=== PATIENT | female | born 1970 | race Caucasian/White ===

== ENCOUNTER 2019-07-24 08:43 | Inpatient (IN) | payer SELFPAY ==
[~2019-07-24] VITALS: Ht 162.3 cm; Wt 125.0 kg
[2019-07-24] VITALS (11 sets, daily range): BP systolic 114–139; BP diastolic 62–81
[~2019-07-24 08:43] MED LIST: ACHD5005 PO; CYCL10TA9 PO; NAPR-243 PO
[2019-07-24] MEDS ORDERED: NS IV 1000 ML 1,000 ML IV SCH ×2 (08:47→09:03)
--- NOTE | 2019-07-24 08:54 | ED Neurological Problem ---
General Stated Complaint: AMS Source: patient Exam Limitations: no limitations History of Present Illness Date Seen by Provider: Jul 24, 2019 Time Seen by Provider: 08:35 Initial Comments Patient presents ER by EMS from home with chief complaint that last night she was acting oddly according to her . She is diabetic but does not allow him to check blood sugar. She went to bed and this morning woke up around 6:00 and was still talking out of her head taking her clothes off running around. Patient's unable to answer any questions with meaningful answers. 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 No history of suicidal ideation or delivers self-harm. The patient does take Paxil. Blood sugar was over 300. No other medical history. The is on his way with her medications. Allergies and Home Medications Allergies Coded Allergies: No Known Drug Allergies (Unverified , 06/29/11) Home Medications Atorvastatin Calcium 20 Mg Tablet, 20 MG PO HS, (Reported) Calcium Carb/D3/Magnesium/Zinc 1 Each Tablet, 1 EACH PO DAILY, (Reported) Dulaglutide 0.75 Mg/0.5 Ml Pen.injctr, 0.75 MG SQ WEEK, (Reported) Glipizide 10 Mg Tablet, 10 MG PO DAILY, (Reported) Insulin Aspart 100 Unit/1 Ml Susp, 0 SQ AC, (Reported) Insulin Determir 1,000 Units/10 Ml Soln, 0 SQ HS, (Reported) Lisinopril 10 Mg Tablet, 10 MG PO DAILY, (Reported) Metformin HCl 500 Mg [id number], 1,000 MG PO BID, (Reported) Multivitamin 1 Each Tablet, 1 EACH PO DAILY, (Reported) Paroxetine HCl 40 Mg Tablet, 40 MG PO DAILY, (Reported) Potassium Gluconate 99 Mg Tablet, 99 MG PO DAILY, (Reported) Patient Home Medication List Home Medication List Reviewed: Yes Review of Systems Review of Systems Constitutional: see HPI (unable to obtain a meaningful review of systems secondary to patient's delirium) Past Hgkwuvm-Arlbys-Lftqcv Hx Patient Social History Alcohol Use: Denies Use Recreational Drug Use: No Smoking Status: Never a Smoker Recent Foreign Travel: No Contact w/Someone Who Travel: No Physical Exam Vital Signs Vital Signs - First Documented 07/24/19 08:43 Temp 36.8 Pulse 99 Resp 20 B/P (MAP) 151/89 (109) Pulse Ox 98 O2 Delivery Room Air Capillary Refill : Height, Weight, BMI Height: '" Weight: lbs. oz. kg; BMI Method: General Appearance: mild distress, obese HEENT: PERRL/EOMI, pharynx normal Neck: non-tender, full range of motion Respiratory: lungs clear, normal breath sounds, no respiratory distress, no accessory muscle use Cardiovascular: normal peripheral pulses, regular rate, rhythm, no edema Peripheral Pulses: 2+ Radial Pulses (R), 2+ Radial Pulses (L) Gastrointestinal: normal bowel sounds, non tender, soft Neurologic/Psychiatric: alert; No oriented x 3 (nonpressured, delirious speech); other (patellar, tricep and brachioradialis hyperclonus without tonic. Reflexes bilateral symmetric 3/4 upper and lower extremities.) Progress/Results/Core Measures Results/Orders Lab Results Laboratory Tests Test 07/24/19 08:54 07/24/19 09:08 Range/Units Urine Color YELLOW Urine Clarity CLEAR Urine pH 6 5-9 Urine Specific Willet 1.020 1.016-1.022 Urine Protein 2+ H NEGATIVE Urine Glucose (UA) 3+ H NEGATIVE Urine Ketones 2+ H NEGATIVE Urine Nitrite NEGATIVE NEGATIVE Urine Bilirubin NEGATIVE NEGATIVE Urine Urobilinogen NORMAL NORMAL MG/DL Urine Leukocyte Esterase NEGATIVE NEGATIVE Urine RBC (Auto) 2+ H NEGATIVE Urine RBC 2-5 H /HPF Urine WBC 2-5 /HPF Urine Squamous Epithelial Cells RARE /HPF Urine Crystals NONE /LPF Urine Bacteria NEGATIVE /HPF Urine Casts PRESENT /LPF Urine Hyaline Casts 10-25 H /LPF Urine Mucus NEGATIVE /LPF Urine Culture Indicated NO Urine Test NEGATIVE NEGATIVE Urine Opiates Screen NEGATIVE NEGATIVE Urine Oxycodone Screen NEGATIVE NEGATIVE Urine Methadone Screen NEGATIVE NEGATIVE Urine Propoxyphene Screen NEGATIVE NEGATIVE Urine Barbiturates Screen NEGATIVE NEGATIVE Ur Tricyclic Antidepressants Screen NEGATIVE NEGATIVE Urine Phencyclidine Screen NEGATIVE NEGATIVE Urine Amphetamines Screen NEGATIVE NEGATIVE Urine Methamphetamines Screen NEGATIVE NEGATIVE Urine Benzodiazepines Screen NEGATIVE NEGATIVE Urine Cocaine Screen NEGATIVE NEGATIVE Urine Cannabinoids Screen NEGATIVE NEGATIVE White Blood Count 14.0 H 4.3-11.0 10^3/uL Red Blood Count 3.66 L 4.35-5.85 10^6/uL Hemoglobin 11.1 L 11.5-16.0 G/DL Hematocrit 33 L 35-52 % Mean Corpuscular Volume 90 80-99 FL Mean Corpuscular Hemoglobin 30 25-34 PG Mean Corpuscular Hemoglobin Concent 34 32-36 G/DL Red Cell Distribution Width 13.6 10.0-14.5 % Platelet Count 351 130-400 10^3/uL Mean Platelet Volume 9.9 7.4-10.4 FL Neutrophils (%) (Auto) 86 H 42-75 % Lymphocytes (%) (Auto) 8 L 12-44 % Monocytes (%) (Auto) 6 0-12 % Eosinophils (%) (Auto) 1 0-10 % Basophils (%) (Auto) 0 0-10 % Neutrophils # (Auto) 11.9 H 1.8-7.8 X 10^3 Lymphocytes # (Auto) 1.2 1.0-4.0 X 10^3 Monocytes # (Auto) 0.8 0.0-1.0 X 10^3 Eosinophils # (Auto) 0.1 0.0-0.3 10^3/uL Basophils # (Auto) 0.0 0.0-0.1 10^3/uL Sodium Level 134 L 135-145 MMOL/L Potassium Level 4.2 3.6-5.0 MMOL/L Chloride Level 101 98-107 MMOL/L Carbon Dioxide Level 20 L 21-32 MMOL/L Anion Gap 13 5-14 MMOL/L Blood Urea Nitrogen 44 H 7-18 MG/DL Creatinine 1.76 H 0.60-1.30 MG/DL Estimat Glomerular Filtration Rate 31 BUN/Creatinine Ratio 25 Glucose Level 260 H 70-105 MG/DL Calcium Level 9.3 8.5-10.1 MG/DL Corrected Calcium 9.1 8.5-10.1 MG/DL Magnesium Level 2.1 1.6-2.4 MG/DL Total Bilirubin 0.7 0.1-1.0 MG/DL Aspartate Amino Transf (AST/SGOT) 38 H 5-34 U/L Alanine Aminotransferase (ALT/SGPT) 31 0-55 U/L Alkaline Phosphatase 84 40-136 U/L Total Creatine Kinase 1055 H 29-168 U/L Total Protein 7.0 6.4-8.2 GM/DL Albumin 4.2 3.2-4.5 GM/DL Salicylates Level < 5.0 L 5.0-20.0 MG/DL Acetaminophen Level < 10 L 10-30 UG/ML Serum Alcohol < 10 <10 MG/DL My Orders Orders - LESA CONNER Ua Culture If Indicated (07/24/19 08:47) Cbc With Automated Diff (07/24/19 08:47) Comprehensive Metabolic Panel (07/24/19 08:47) Alcohol (07/24/19 08:47) Drug Screen Stat (Urine) (07/24/19 08:47) Acetaminophen (07/24/19 08:47) Salicylate (07/24/19 08:47) Ekg Tracing (07/24/19 08:47) Hcg,Qualitative Urine (07/24/19 08:47) Ed Iv/Invasive Line Start (07/24/19 08:47) Monitor-Rhythm Ecg Trace Only (07/24/19 08:47) Bh Status Checks/Observation Q15M (07/24/19 08:47) Ed Iv/Invasive Line Start (07/24/19 08:47) Ns Iv 1000 Ml (Sodium Chloride 0.9%) (07/24/19 08:47) Catheter(Urinary) Insert & Ass 03,15 (07/24/19 08:47) Lorazepam Injection (Ativan Injection) (07/24/19 09:00) Diphenhydramine Injection (Benadryl Inje (07/24/19 09:00) Lorazepam Injection (Ativan Injection) (07/24/19 09:00) Ct Head Wo (07/24/19 08:57) Magnesium 1 Gm/100 Ml Ivpb (Magnesium Briscoe (07/24/19 09:15) Creatine Kinase (07/24/19 09:03) Ed Iv/Invasive Line Start (07/24/19 09:03) Ns Iv 1000 Ml (Sodium Chloride 0.9%) (07/24/19 09:03) Magnesium (07/24/19 09:06) Medications Given in ED Current Medications Medications Dose Ordered Sig/Rina Route Start Time Stop Time Status Last Admin Dose Admin Diphenhydramine HCl 25 mg ONCE ONCE IVP 07/24/19 09:00 07/24/19 09:01 DC 07/24/19 09:02 25 MG Lorazepam 2 mg ONCE ONCE IVP 07/24/19 09:00 07/24/19 09:01 DC 07/24/19 08:55 2 MG Magnesium Sulfate/ Dextrose 100 ml @ 100 mls/hr ONCE ONCE IV 07/24/19 09:15 07/24/19 10:14 DC 07/24/19 09:12 100 MLS/HR Vital Signs/I&O 07/24/19 08:43 Temp 36.8 Pulse 99 Resp 20 B/P (MAP) 151/89 (109) Pulse Ox 98 O2 Delivery Room Air Progress Progress Note #1: Time: 08:53 Progress Note Poison Control: Discussed the case and he said it is possible that she is in serotonergic syndrome. They would recommend aggressive IV fluids so we'll increase it to 2 L. They would recommend benzos. If she becomes hypotensive use norepinephrine. Keep your normothermic. We discussed cyproheptadine and well hold that and observe at this time. They suggests serial CPK. EKG demonstrated mildly prolonged QTC at 503 ms so with a gram of magnesium will be okay and to check electrolytes. We'll start with a liter fluids, EKG, labs, urine, Nguyen catheter, 2 mg of Ativan and 25 mg IV Benadryl for her histaminergic appearance. Progress Note #2: Time: 11:26 Progress Note Poison control called back earlier and spoke to nursing. Their athletic gear custodian agreed that serotonergic syndrome seemed likely. They recommended Ativan 2 mg every 15 minutes IV until we got her calm down. Follow the CPK and IV fluids. Watch for hyperthermia and use Cyproheptadine if necessary. Patient is mentating a little better and able to answer questions. She is oriented that she's in a hospital room but does not know the name of the Pres., day of the week or what happened. Presently she denies suicidal ideation. Diagnostic Imaging Diagonstic Imaging: Xray Plain Films/CT/US/NM/MRI: chest (1v) Reviewed: Reviewed by Me Diagonstic Imaging: CT (without IV contrast) Plain Films/CT/US/NM/MRI: head Comments [facility]. [place], [place] NAME: ADONAY RAY MED REC#: [id number] PT STATUS: REG ER : 1970 PHYSICIAN: LESA CONNER MD ADMIT DATE: 07/24/19/ER Draft Date of Exam:07/24/19 CT HEAD WO PROCEDURE: CT head without contrast. TECHNIQUE: Multiple contiguous axial images were obtained through the brain without the use of intravenous contrast. Auto Exposure Controls were utilized during the CT exam to meet ALARA standards for radiation dose reduction. INDICATION: Altered mental status. No prior studies are available for comparison. The ventricles and sulci are within normal limits. No sulcal effacement or midline shift is detected. No acute intra-axial or extra-axial hemorrhage is seen. Cisterns are patent. Visualized paranasal sinuses are clear. IMPRESSION: No acute intracranial process is detected. Dictated on workstation # [id number] Dict: 07/24/1939 Trans: 07/24/19 0941 [facility] [id number] Interpreted by: BRANDON BERGER MD Electronically signed by: Reviewed: Reviewed by Me Departure Communication (Admissions) Time/Spoke to Admitting Phy: 11:20 Discussed case lab imaging findings with Dr. Amezcua and she agrees with admission to the ICU, fluids and Ativan as necessary. Impression Primary Impression: Serotonergic syndrome Additional Impressions: Acute kidney injury Rhabdomyolysis Qualified Codes: M62.82 - Rhabdomyolysis Delirium due to another medical condition, acute, hyperactive Disposition: ADMITTED INPATIENT Condition: Critical Admissions Decision to Admit Reason: Admit from ER (General) Decision to Admit/Date: Jul 24, 2019 Time/Decision to Admit Time: 10:30 Departure-Patient Inst. Referrals: JARROD DÍAZ MD (PCP/Family) Primary Care Physician LESA CONNER Jul 24, 2019 08:54
[2019-07-24 09:00] LABS: BILIRUBIN,URINE NEGATIVE (NEGATIVE); CLARITY,URINE CLEAR; COLOR,URINE YELLOW; GLUCOSE, URINE (UA) 3+ (NEGATIVE); KETONES,URINE 2+ (NEGATIVE); LEUKOCYTE ESTERASE ,URINE NEGATIVE (NEGATIVE); NITRITE,URINE NEGATIVE (NEGATIVE); PH,URINE 6 (5-9); PROTEIN,URINE 2+ (NEGATIVE); UROBILINOGEN,URINE NORMAL (NORMAL)
[2019-07-24] MEDS ORDERED: LORazepam INJ 2 MG/ML (ATIVAN) VIAL IVP ONE ×2 (09:00)
[2019-07-24] MEDS ORDERED: diphenhydrAMINE 50 MG/ML INJ (BENADRYL) IVP ONE (09:00)
[2019-07-24 09:07] LABS: BACTERIA,URINE NEGATIVE /HPF; HCG,QUALITATIVE URINE NEGATIVE (NEGATIVE); SQUAMOUS EPITHELIAL CELL,UR RARE /HPF
[2019-07-24 09:11] LABS: AMPHETAMINE SCREEN, URINE NEGATIVE (NEGATIVE); BARBITURATE SCREEN URINE NEGATIVE (NEGATIVE); BENZODIAZEPINES SCREEN URINE NEGATIVE (NEGATIVE); CANNABINOID SCREEN, URINE NEGATIVE (NEGATIVE); COCAINE SCREEN URINE NEGATIVE (NEGATIVE); METHADONE STAT NEGATIVE (NEGATIVE); METHAMPHETAMINE SCREEN URINE S NEGATIVE (NEGATIVE); OPIATE SCREEN URINE NEGATIVE (NEGATIVE); OXYCODONE STAT NEGATIVE (NEGATIVE); PROPOXYPHENE STAT NEGATIVE (NEGATIVE); TRICYCLIC ANTIDEPRESSANTS SCRE NEGATIVE (NEGATIVE)
[2019-07-24] MEDS ORDERED: MAGNESIUM 1 GM/100 ML IVPB 100 ML IV ONE (09:15)
[2019-07-24 09:18] LABS: BASOPHILS % (AUTO) 0 % (0-10); EOSINOPHILS # (AUTO) 0.1 10^3/uL (0.0-0.3); EOSINOPHILS % (AUTO) 1 % (0-10); HEMATOCRIT 33 % (35-52); HEMOGLOBIN 11.1 G/DL (11.5-16.0); LYMPHOCYTES # (AUTO) 1.2 X 10^3 (1.0-4.0); LYMPHOCYTES % (AUTO) 8 % (12-44); MEAN CORPUSCULAR HEMOGLOBIN 30 PG (25-34); MEAN CORPUSCULAR HGB CONC 34 G/DL (32-36); MEAN CORPUSCULAR VOLUME 90 FL (80-99); MEAN PLATELET VOLUME 9.9 FL (7.4-10.4); MONOCYTES # (AUTO) 0.8 X 10^3 (0.0-1.0); MONOCYTES % (AUTO) 6 % (0-12); NEUTROPHILS # (AUTO) 11.9 X 10^3 (1.8-7.8); NEUTROPHILS % (AUTO) 86 % (42-75); PLATELET COUNT 351 10^3/uL (130-400); RED CELL DISTRIBUTION WIDTH 13.6 % (10.0-14.5)
[2019-07-24] MEDS ORDERED: CA C1TAB70 PO (09:40)
[2019-07-24] MEDS ORDERED: DULA0.75 SQ (09:40)
[2019-07-24] MEDS ORDERED: INSU100V16 SQ (09:40)
[2019-07-24] MEDS ORDERED: MULT-974 PO (09:40)
[2019-07-24] MEDS ORDERED: [UNRECOGNIZED DRUG - CODE] PO (09:40)
[2019-07-24] MEDS ORDERED: INSU100V5 SQ (09:40)
[2019-07-24] MEDS ORDERED: ATOR20TA66 PO (09:40)
[2019-07-24] MEDS ORDERED: POTA99TA17 PO (09:40)
[2019-07-24] MEDS ORDERED: PARO40TA3 PO (09:40)
[2019-07-24] MEDS ORDERED: LISI10TA2 PO (09:40)
[2019-07-24] MEDS ORDERED: METF-760 PO (09:40)
[2019-07-24] MEDS ORDERED: GLIP10TA13 PO (09:40)
--- NOTE | 2019-07-24 09:41 | Diagnostic Imaging Report ---
PROCEDURE: CT head without contrast. TECHNIQUE: Multiple contiguous axial images were obtained through the brain without the use of intravenous contrast. Auto Exposure Controls were utilized during the CT exam to meet ALARA standards for radiation dose reduction. INDICATION: Altered mental status. No prior studies are available for comparison. The ventricles and sulci are within normal limits. No sulcal effacement or midline shift is detected. No acute intra-axial or extra-axial hemorrhage is seen. Cisterns are patent. Visualized paranasal sinuses are clear. IMPRESSION: No acute intracranial process is detected. Dictated by: Dictated on workstation # [id number]
[2019-07-24 09:43] LABS: ALANINE AMINOTRANSFERASE 31 U/L (0-55); ALBUMIN 4.2 GM/DL (3.2-4.5); ALKALINE PHOSPHATASE 84 U/L (40-136); BILIRUBIN,TOTAL 0.7 MG/DL (0.1-1.0); BUN/CREATININE RATIO 25; CALCIUM 9.3 MG/DL (8.5-10.1); CARBON DIOXIDE 20 MMOL/L (21-32); CHLORIDE 101 MMOL/L (98-107); CREATINE KINASE 1055 U/L (29-168); CREATININE SERUM 1.76 MG/DL (0.60-1.30); GFR ESTIMATED 31; GLUCOSE 260 MG/DL (70-105); MAGNESIUM 2.1 MG/DL (1.6-2.4); POTASSIUM 4.2 MMOL/L (3.6-5.0); SALICYLATE < 5.0 MG/DL (5.0-20.0); SODIUM 134 MMOL/L (135-145)
[2019-07-24 10:01] LABS: ACETAMINOPHEN < 10 UG/ML (10-30)
[2019-07-24] MEDS ORDERED: ACETAMINOPHEN 325 MG TABLET PO PRN (12:15)
[2019-07-24] MEDS ORDERED: CATHETER FLUSH 10 ML SYR IV PRN (12:15)
[2019-07-24] MEDS ORDERED: ONDANSETRON 4 MG/2 ML (SDV) Z0FRAN IV PRN (12:15)
[2019-07-24] MEDS: NS IV 1000 ML 1,000 ML IV SCH ×3 (12:28→21:56)
[2019-07-24] MEDS: inSUlin ASPART (NovoLOG) 1 UNIT/0.01 ML (CHARGE PER UNIT) SC SCH ×2 (16:50→21:55)
[2019-07-24] MEDS: diphenhydrAMINE 50 MG/ML INJ (BENADRYL) IV PRN (23:24)
[2019-07-25] VITALS (22 sets, daily range): BP systolic 120–176; BP diastolic 63–169
[2019-07-25] MEDS: NS IV 1000 ML 1,000 ML IV SCH ×5 (02:33→23:41)
[2019-07-25 03:08] LABS: HEMOGLOBIN 10.2 G/DL (11.5-16.0); MEAN PLATELET VOLUME 9.6 FL (7.4-10.4); RED CELL DISTRIBUTION WIDTH 13.4 % (10.0-14.5); WHITE BLOOD COUNT 8.6 10^3/uL (4.3-11.0)
[2019-07-25 03:34] LABS: ALANINE AMINOTRANSFERASE 28 U/L (0-55); ALBUMIN 3.6 GM/DL (3.2-4.5); ALKALINE PHOSPHATASE 80 U/L (40-136); BILIRUBIN,TOTAL 0.4 MG/DL (0.1-1.0); BUN/CREATININE RATIO 21; CALCIUM 7.6 MG/DL (8.5-10.1); CARBON DIOXIDE 20 MMOL/L (21-32); CHLORIDE 110 MMOL/L (98-107); CREATINE KINASE 579 U/L (29-168); CREATININE SERUM 0.97 MG/DL (0.60-1.30); GFR ESTIMATED > 60; GLUCOSE 168 MG/DL (70-105); MAGNESIUM 2.3 MG/DL (1.6-2.4); PHOSPHORUS 1.9 MG/DL (2.3-4.7); POTASSIUM 3.8 MMOL/L (3.6-5.0); SODIUM 138 MMOL/L (135-145)
[2019-07-25] MEDS: POTASSIUM CL 10MEQ/50ML IVPB 50 ML IV SCH (04:25)
[2019-07-25] MEDS: MAGNESIUM 1 GM/100 ML IVPB 100 ML IV SCH (04:26)
[2019-07-25] MEDS: KCL 20 MEQ TAB (K-DUR) PO SCH (04:26)
[2019-07-25] MEDS: inSUlin ASPART (NovoLOG) 1 UNIT/0.01 ML (CHARGE PER UNIT) SC SCH ×4 (06:10→20:11)
--- NOTE | 2019-07-25 07:09 | Pulmonary Consultation ---
History of Present Illness History of Present Illness Date of Consultation 07/25/19 07:03 Date of Admission Allergies and Home Medications Allergies Coded Allergies: No Known Drug Allergies (Unverified , 06/29/11) Home Medications Atorvastatin Calcium 20 Mg Tablet, 20 MG PO HS, (Reported) Calcium Carb/D3/Magnesium/Zinc 1 Each Tablet, 1 EACH PO DAILY, (Reported) Dulaglutide 0.75 Mg/0.5 Ml Pen.injctr, 0.75 MG SQ WEEK, (Reported) Glipizide 10 Mg Tablet, 10 MG PO DAILY, (Reported) Insulin Aspart 100 Unit/1 Ml Susp, 0 SQ AC, (Reported) Insulin Determir 1,000 Units/10 Ml Soln, 0 SQ HS, (Reported) Lisinopril 10 Mg Tablet, 10 MG PO DAILY, (Reported) Metformin HCl 500 Mg [id number], 1,000 MG PO BID, (Reported) Multivitamin 1 Each Tablet, 1 EACH PO DAILY, (Reported) Paroxetine HCl 40 Mg Tablet, 40 MG PO DAILY, (Reported) Potassium Gluconate 99 Mg Tablet, 99 MG PO DAILY, (Reported) Past Iddaydz-Bihkxm-Dbqulo Hx Patient Social History Alcohol Use: Denies Use Recreational Drug Use: No Smoking Status: Never a Smoker Recent Foreign Travel: No Contact w/Someone Who Travel: No Recent Infectious Disease Expo: No Recent Hopitalizations: No Physical Abuse: No Sexual Abuse: No Mistreated: No Fear: No Immunizations Up To Date Tetanus Booster (TDap): Unknown PED Vaccines UTD: Yes Seasonal Allergies Seasonal Allergies: No Past Medical History Surgeries: Yes Respiratory: No Cardiac: No Neurological: No Genitourinary: No Gastrointestinal: No Musculoskeletal: No Endocrine: Yes HEENT: No Cancer: No Psychosocial: Yes Integumentary: No Sepsis Event Evaluation Height, Weight, BMI Height: '" Weight: lbs. oz. kg; 34.00 BMI Method: Exam Exam Vital Signs Date Time Temp Pulse Resp B/P (MAP) Pulse Ox O2 Delivery O2 Flow Rate FiO2 07/25/19 06:00 91 16 132/72 (92) 100 Room Air 07/25/19 05:00 81 19 142/84 (103) 96 Room Air 07/25/19 04:00 97 Room Air 07/25/19 04:00 85 20 133/78 (96) 96 Room Air 07/25/19 04:00 35.6 07/25/19 03:00 80 23 139/80 (99) 100 Room Air 07/25/19 02:00 138/86 (103) Room Air 07/25/19 02:00 95 17 94 Room Air 07/25/19 01:00 81 19 98 Room Air 07/25/19 01:00 84 07/25/19 00:00 97 Room Air 07/25/19 00:00 36.5 07/25/19 00:00 85 20 97 Room Air 07/24/19 23:00 88 16 121/74 (90) 98 Room Air 07/24/19 22:00 96 18 138/81 (100) 99 Room Air 07/24/19 20:00 96 Room Air 07/24/19 20:00 36.7 07/24/19 20:00 103 139/69 (92) 100 Room Air 07/24/19 19:00 94 20 135/79 (97) 98 Room Air 07/24/19 19:00 95 07/24/19 18:00 96 12 135/74 (94) 100 Room Air 07/24/19 17:00 94 22 127/70 (89) 96 Room Air 07/24/19 16:00 82 11 123/77 (92) 97 Room Air 07/24/19 16:00 98 Room Air 07/24/19 15:00 87 24 123/65 (84) 98 Room Air 07/24/19 14:00 75 22 132/75 (94) 98 Room Air 07/24/19 13:00 89 20 114/62 (79) 96 Room Air 07/24/19 13:00 89 07/24/19 12:15 80 24 126/80 (95) 97 Room Air 07/24/19 12:12 79 07/24/19 12:01 97 Room Air 07/24/19 11:55 88 24 129/76 96 Room Air 07/24/19 08:43 36.8 99 20 151/89 (109) 98 Room Air I & O 07/25/19 07:00 Intake Total 5550 ml Output Total 5800 ml Balance -250 ml Height & Weight Height: '" Weight: lbs. oz. kg; 34.00 BMI Method: Capillary Refill: Less Than 3 Seconds Peripheral Pulses: 2+ Radial Pulses (R), 2+ Radial Pulses (L) Gastrointestinal: normal bowel sounds, non tender, soft Results Lab Laboratory Tests 07/24/19 09:08 07/25/19 02:52 Assessment/Plan Assessment/Plan Dehydration ? serotonin syndrome -IVF -Monitor puritic erythematous skin rash -Start solumedrol 125mg IV X 1 then 40 IV Q 6 -Cont Benadryl -Continue to monitor Dysphagia -Check Bedside swallow eval Rhabdomyolysis -IVF Metabolic acidosis -Continue to monitor AKF- improving -IVF and monitor metabolic acidosis -Monitor ELLIS ALVARADO DO Jul 25, 2019 07:09
[2019-07-25] MEDS ORDERED: SODIUM PHOSPHATE INJ 30 MM in NS (IVPB) 250 ML IV ONE (07:30)
[2019-07-25] MEDS ORDERED: methylPREDNISolone 125 MG (Solu-MEDROL) VIAL ONE (07:59)
[2019-07-25] MEDS ORDERED: methylPREDNISolone 125 MG (Solu-MEDROL) VIAL IM NR (08:00)
--- NOTE | 2019-07-25 09:07 | Diagnostic Imaging Report ---
EXAMINATION: Chest radiograph, portable AP view. DATE: 07/25/2019 6:46 AM hours. INDICATION: 49-year-old female, altered mental status. COMPARISON: December 23, 2006. FINDINGS: Stable overall appearance of the cardiomediastinal silhouette. There is no identified pneumothorax. There is no large pleural effusion. There is no identified focal airspace consolidation. IMPRESSION: No identified acute cardiopulmonary abnormality. Dictated by: Dictated on workstation # [id number]
[2019-07-25] MEDS: LORazepam INJ 2 MG/ML (ATIVAN) VIAL IV PRN ×3 (10:33→23:06)
[2019-07-25] MEDS: methylPREDNISolone 40 MG/ML (Solu-MEDROL) VIAL IV SCH ×2 (11:48→16:20)
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
[2019-07-25] MEDS: diphenhydrAMINE 50 MG/ML INJ (BENADRYL) IV PRN ×2 (17:42→23:06)
[2019-07-25] MEDS ORDERED: inSUlin ASPART (NovoLOG) 1 UNIT/0.01 ML (CHARGE PER UNIT) ONE (20:07)
[2019-07-26] VITALS (11 sets, daily range): BP systolic 136–167; BP diastolic 69–97
[2019-07-26] MEDS: NS IV 1000 ML 1,000 ML IV SCH ×4 (00:51→19:15)
[2019-07-26] MEDS: inSUlin ASPART (NovoLOG) 1 UNIT/0.01 ML (CHARGE PER UNIT) SC SCH ×5 (00:52→20:56)
[2019-07-26] MEDS: methylPREDNISolone 40 MG/ML (Solu-MEDROL) VIAL IV SCH ×3 (00:52→17:41)
[2019-07-26 04:09] LABS: BASOPHILS % (AUTO) 0 % (0-10); EOSINOPHILS % (AUTO) 0 % (0-10); HEMATOCRIT 30 % (35-52); HEMOGLOBIN 9.8 G/DL (11.5-16.0); LYMPHOCYTES # (AUTO) 0.9 X 10^3 (1.0-4.0); LYMPHOCYTES % (AUTO) 10 % (12-44); MEAN CORPUSCULAR HEMOGLOBIN 30 PG (25-34); MEAN CORPUSCULAR HGB CONC 33 G/DL (32-36); MEAN CORPUSCULAR VOLUME 92 FL (80-99); MEAN PLATELET VOLUME 10.1 FL (7.4-10.4); MONOCYTES # (AUTO) 0.4 X 10^3 (0.0-1.0); MONOCYTES % (AUTO) 4 % (0-12); NEUTROPHILS # (AUTO) 7.8 X 10^3 (1.8-7.8); NEUTROPHILS % (AUTO) 86 % (42-75); PLATELET COUNT 320 10^3/uL (130-400); RED CELL DISTRIBUTION WIDTH 13.4 % (10.0-14.5)
[2019-07-26] MEDS: KCL 20 MEQ TAB (K-DUR) PO SCH (04:16)
[2019-07-26] MEDS: POTASSIUM CL 10MEQ/50ML IVPB 50 ML IV SCH (04:16)
[2019-07-26] MEDS: MAGNESIUM 1 GM/100 ML IVPB 100 ML IV SCH (04:16)
[2019-07-26 04:23] LABS: BUN/CREATININE RATIO 15; CALCIUM 7.5 MG/DL (8.5-10.1); CARBON DIOXIDE 17 MMOL/L (21-32); CHLORIDE 111 MMOL/L (98-107); CREATININE SERUM 0.86 MG/DL (0.60-1.30); GFR ESTIMATED > 60; GLUCOSE 242 MG/DL (70-105); PHOSPHORUS 1.5 MG/DL (2.3-4.7); POTASSIUM 4.5 MMOL/L (3.6-5.0); SODIUM 139 MMOL/L (135-145)
[2019-07-26] MEDS ORDERED: risperiDONE 1 MG (RisperDAL) TAB PO ONE (05:30)
[2019-07-26] MEDS ORDERED: HALOPERIDOL 5 MG/ML (HALDOL) AMP IV PRN (05:30)
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
--- NOTE | 2019-07-26 05:39 | Pulmonary Progress Note ---
Sepsis Event Evaluation Height, Weight, BMI Height: '" Weight: lbs. oz. kg; 34.00 BMI Method: Exam Exam Vital Signs Date Time Temp Pulse Resp B/P (MAP) Pulse Ox O2 Delivery O2 Flow Rate FiO2 07/26/19 04:00 Room Air 07/26/19 02:00 65 19 141/78 (99) 95 Room Air 07/26/19 01:00 64 07/26/19 01:00 64 20 138/81 (100) 94 Room Air 07/26/19 00:00 Room Air 07/26/19 00:00 79 154/83 (106) 96 Room Air 07/25/19 23:10 70 15 142/77 (98) 98 Room Air 07/25/19 22:06 80 19 153/96 (115) 99 Room Air 07/25/19 22:00 36.4 07/25/19 21:00 74 9 176/169 (171) 97 Room Air 07/25/19 20:00 92 28 146/77 (100) 96 Room Air 07/25/19 20:00 Room Air 07/25/19 19:18 36.6 81 22 169/89 (115) 98 Room Air 07/25/19 19:00 103 07/25/19 18:00 91 23 146/77 (100) Room Air 07/25/19 17:00 80 29 140/89 (106) Room Air 07/25/19 16:00 80 24 139/82 (101) Room Air 07/25/19 16:00 37.2 07/25/19 16:00 Room Air 07/25/19 15:00 37.0 07/25/19 15:00 87 29 130/68 (88) Room Air 07/25/19 14:00 102 24 130/63 (85) Room Air 07/25/19 13:02 98 07/25/19 13:00 92 44 133/84 (100) Room Air 07/25/19 12:00 Room Air 07/25/19 12:00 36.2 07/25/19 12:00 86 24 132/67 (88) 100 Room Air 07/25/19 11:00 78 25 134/74 (94) 96 Room Air 07/25/19 11:00 36.2 07/25/19 10:00 88 20 141/91 (108) 94 Room Air 07/25/19 09:00 78 24 120/66 (84) 96 Room Air 07/25/19 08:00 Room Air 07/25/19 08:00 93 13 126/71 (89) 99 Room Air 07/25/19 08:00 36.8 07/25/19 07:02 92 07/25/19 07:00 93 17 134/75 (94) 98 Room Air 07/25/19 06:00 91 16 132/72 (92) 100 Room Air I & O 07/26/19 07:00 Intake Total 5800 ml Output Total 5225 ml Balance 575 ml Height & Weight Height: '" Weight: lbs. oz. kg; 34.00 BMI Method: General Appearance: No Apparent Distress, Chronically ill HEENT: PERRL/EOMI, Normal ENT Inspection, Pharynx Normal, Moist Mucous Membranes Neck: Full Range of Motion, Normal Inspection, Non Tender Respiratory: Chest Non Tender, Lungs Clear, Normal Breath Sounds, No Accessory Muscle Use, No Respiratory Distress Cardiovascular: Regular Rate, Rhythm, No Edema, No Gallop, No JVD, No Murmur, Normal Peripheral Pulses Capillary Refill: Less Than 3 Seconds Peripheral Pulses: 2+ Radial Pulses (R), 2+ Radial Pulses (L) Gastrointestinal: normal bowel sounds, non tender, soft Extremity: Normal Capillary Refill, Normal Inspection, Normal Range of Motion, Non Tender, No Calf Tenderness, No Pedal Edema Neurologic/Psychiatric: Alert, Oriented x3, No Motor/Sensory Deficits, Normal Mood/Affect Skin: Normal Color, Warm/Dry Lymphatic: No Adenopathy Results Lab Laboratory Tests 07/24/19 09:08 07/25/19 02:52 07/26/19 03:12 Assessment/Plan Assessment/Plan Dehydration ? serotonin syndrome -IVF -Monitor puritic erythematous skin rash -Start solumedrol 125mg IV X 1 then 40 IV Q 6 -Cont Benadryl -Continue to monitor Dysphagia -Check Bedside swallow eval Rhabdomyolysis -IVF Metabolic acidosis -Continue to monitor AKF- improving -IVF and monitor metabolic acidosis -Monitor ELLIS ALVARADO DO Jul 26, 2019 05:39
[2019-07-26] MEDS ORDERED: SODIUM PHOSPHATE INJ 30 MM in NS (IVPB) 250 ML IV ONE (05:45)
--- NOTE | 2019-07-26 07:14 | Diagnostic Imaging Report ---
INDICATION: Shortness of breath COMPARISON: 07/25/2019 FINDINGS: Single view of the chest demonstrates clear lungs bilaterally. Heart is normal. There is no pneumothorax but osseous structures are normal. IMPRESSION: Negative chest. Dictated by: Dictated on workstation # [id number]
[2019-07-26] MEDS: risperiDONE 1 MG (RisperDAL) TAB PO SCH ×2 (07:42→20:56)
[2019-07-26] MEDS ORDERED: PARO25TA PO (08:56)
[2019-07-26] MEDS ORDERED: PARO40TA3 PO (09:20)
[2019-07-26] MEDS ORDERED: ATOR40TA70 PO (09:20)
[2019-07-26] MEDS ORDERED: ACET-77 PO (09:24)
[2019-07-26] MEDS ORDERED: CALC-778 PO (09:24)
[2019-07-26] MEDS ORDERED: FLUT9.9S NS (09:24)
--- NOTE | 2019-07-26 09:31 | NUR ---
SPOKE WITH THE PT (AND HER ) WELL CALLING [facility] AND [facility] TO COMPLETE THE MED REC. 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 OTC MEDS: CALCIUM/ZINC/MA DAILY MTV: 1 DAILY POTASSIUM: 1 DAILY ACETAMINOPHEN 500M Q 8 H PRN FLONASE: UD TUMS: 2 TID PRN
--- NOTE | 2019-07-26 13:37 | Progress Note ---
Subjective Subjective/Events-last exam Patient states that she is feeling better. States that she has been in a fog the last few days and it is finally improving. is also in room and states that he feels like she is doing better. Tolerating PO diet. Normal BM. Has not been up and out of bed yet. Review of Systems Pulmonary: No Dyspnea Cardiovascular: No: Chest Pain Gastrointestinal: No: Nausea, Vomiting, Abdominal Pain Neurological: Weakness, Incoordination, Confusion Objective Exam Last Set of Vital Signs Vital Signs Date Time Temp Pulse Resp B/P (MAP) Pulse Ox O2 Delivery O2 Flow Rate FiO2 07/26/19 08:25 36.9 73 18 139/69 (92) 96 Room Air Capillary Refill : Less Than 3 Seconds I&O Intake and Output 07/26/19 00:00 Intake Total 5050 ml Output Total 6050 ml Balance -1000 ml Intake Oral 3790 ml IV Total 1260 ml Output Urine Total 6050 ml General: Alert, Cooperative, No Acute Distress Lungs: Clear to Auscultation, Normal Air Movement Heart: Regular Rate, No Murmurs Abdomen: Normal Bowel Sounds, Soft, No Tenderness, No Masses Neuro: Normal Speech Results/Procedures Lab Laboratory Tests 07/26/19 00:37: Glucometer 277H 07/26/19 03:12: White Blood Count 9.0, Red Blood Count 3.28L, Hemoglobin 9.8L, Hematocrit 30L, Mean Corpuscular Volume 92, Mean Corpuscular Hemoglobin 30, Mean Corpuscular H emoglobin Concent 33, Red Cell Distribution Width 13.4, Platelet Count 320, Mean Platelet Volume 10.1, Neutrophils (%) (Auto) 86H, Lymphocytes (%) (Auto) 10L, Monocytes (%) (Auto) 4, Eosinophils (%) (Auto) 0, Basophils (%) (Auto) 0, Neutrophils # (Auto) 7.8, Lymphocytes # (Auto) 0.9L, Monocytes # (Auto) 0.4, Eosinophils # (Auto) 0.0, Basophils # (Auto) 0.0, Sodium Level 139, Potassium Level 4.5, Chloride Level 111H, Carbon Dioxide Level 17L, Anion Gap 11, Blood Urea Nitrogen 13, Creatinine 0.86, Estimat Glomerular Filtration Rate > 60, BUN/Creatinine Ratio 15, Glucose Level 242H, Calcium Level 7.5L, Phosphorus Level 1.5L, Magnesium Level 2.0 07/26/19 10:49: Glucometer 285H Microbiology 07/24/19 MRSA Screen - Final, Complete MRSA not isolated Assessment/Plan Assessment/Plan (1) Delirium due to another medical condition, acute, hyperactive Status: Acute Assessment & Plan: 07/26: Improving, patient still seems slow to answer questions, Will get PT to eval patient, Will plan on d/c home tomorrow (2) Rhabdomyolysis Status: Acute Assessment & Plan: 07/26: Continue IV hydration and encourage PO hydration Qualifiers: Qualified Codes: M62.82 - Rhabdomyolysis (3) Serotonergic syndrome Status: Acute (4) Acute kidney injury Status: Resolved Clinical Quality Measures DVT/VTE Risk/Contraindication: Risk Factor Score Per Nursin RFS Level Per Nursing on Admit: 3=High JALYN PALACIO MD Jul 26, 2019 13:37
--- NOTE | 2019-07-26 14:24 | ST Dysphagia Evaluation ---
Speech Evaluation-General Medical Diagnosis Serotonergic Syndrome, Rhabdomyolysis Onset Date: Jul 26, 2019 Therapy Diagnosis Therapy Diagnosis: Oropharyngeal Dysphagia Referral Referring Physician: Dr. Monet Reason for Referral: Evaluation/Treatment Medical History Reviewed History: Yes Social History Current Living Status: Spouse Speech PLF/Current-Dysphagia Prior Level of Function Patient lived at the home with her and was independent for her daily needs. Subjective Patient was pleasant and cooperative with the Bedside Dysphagia Evaluation. Oral Motor Skills Dentition: Natural Ability to Follow Directions: Good Patient was NPO pending the BDE Oral Expression Ability: No Impairment Voice Voice Phonatory-Based Quality: Normal Voice Pitch: Normal Voice Loudness: Normal Face Facial Symmetry: Symmetrical Oral-Facial Assessment Oral-Facial Dentition: Normal Labial Seal Description: Normal Smile: Normal Puff Cheeks: Normal Lingual Protrusion: Normal Lingual ROM: Normal Lingual Strength: Normal Pharynx Velopharyngeal Move.: Normal Volitional Dry Swallow: Yes Voluntary Cough: Yes Can Clear Throat Volitionally: Yes Productive Cough: No Productive Throat Clear: No Dysphagia Evaluation Oral phase is within normal range of function. Pharyngeal phase is within normal range of function. Dietary Recommendations: Regular Liquid Recommendations: Thin Swallowing Precautions: Alternate Liquids/Solids, Liquids from Straw, Small Bites and Sips, Sitting Upright 90 Degrees, Sitting 90 Degrees 30 Post Intake Dysphagia Evaluation Summary Patient is a 49 year old female who was hospitalized due to altered mental status. The patient was found to have Serotonergic Syndrome and Rhabdomyolysis. The patient was given a Bedside Dysphagia Evaluation with the following consistencies: Thin via 1/2 tsp x2 and via straw of small sips x2 without difficulty. The patient was given 1/2 tsp of each puree, mechanical soft and regular without difficulty or s/s of aspiration. The patient does not warrant further ST dysphagia therapy at this time. Speech-Plan Patient/Family Goals Patient/Family Goals: Patient plans on returning home where she lives with her upon discharge. Treatment Plan Speech Therapy Treatment Plan: Discontinue ST Patient does not require further ST services at this time. Treatment Duration: Jul 26, 2019 Frequency: 1 time per week Estimated Hrs Per Day: .25 hour per day Rehab Potential: Fair Barriers to Learning: Patient has a history of mental disorders Safety Risks/Education Teaching Recipient: Patient Teaching Methods: Discussion Response to Teaching: Verbalize Understanding Education Topics Provided: Safety of oral intake. Time Speech Therapy Time In: 09:15 Speech Therapy Time Out: 09:30 Total Billed Time: 15 Billed Treatment Time 1JORGE L VAHE Shepherd Jul 26, 2019 14:24
[2019-07-27] MEDS: methylPREDNISolone 40 MG/ML (Solu-MEDROL) VIAL IV SCH ×3 (00:12→13:31)
[2019-07-27] MEDS: NS IV 1000 ML 1,000 ML IV SCH ×3 (00:17→13:30)
[2019-07-27 00:25] VITALS: BP 147/67
[2019-07-27 03:50] VITALS: BP 151/71
[2019-07-27 05:40] LABS: BASOPHILS % (AUTO) 0 % (0-10); EOSINOPHILS % (AUTO) 0 % (0-10); HEMATOCRIT 31 % (35-52); HEMOGLOBIN 10.1 G/DL (11.5-16.0); LYMPHOCYTES % (AUTO) 10 % (12-44); MEAN CORPUSCULAR HEMOGLOBIN 30 PG (25-34); MEAN CORPUSCULAR HGB CONC 33 G/DL (32-36); MEAN CORPUSCULAR VOLUME 93 FL (80-99); MEAN PLATELET VOLUME 10.2 FL (7.4-10.4); MONOCYTES # (AUTO) 0.5 X 10^3 (0.0-1.0); MONOCYTES % (AUTO) 4 % (0-12); NEUTROPHILS # (AUTO) 8.9 X 10^3 (1.8-7.8); NEUTROPHILS % (AUTO) 86 % (42-75); PLATELET COUNT 362 10^3/uL (130-400); RED CELL DISTRIBUTION WIDTH 13.6 % (10.0-14.5); WHITE BLOOD COUNT 10.4 10^3/uL (4.3-11.0)
[2019-07-27 06:00] LABS: BUN/CREATININE RATIO 19; CALCIUM 7.8 MG/DL (8.5-10.1); CARBON DIOXIDE 18 MMOL/L (21-32); CHLORIDE 112 MMOL/L (98-107); CREATININE SERUM 0.94 MG/DL (0.60-1.30); GFR ESTIMATED > 60; GLUCOSE 281 MG/DL (70-105); MAGNESIUM 2.2 MG/DL (1.6-2.4); PHOSPHORUS 2.6 MG/DL (2.3-4.7); POTASSIUM 4.8 MMOL/L (3.6-5.0); SODIUM 140 MMOL/L (135-145)
[2019-07-27] MEDS: POTASSIUM CL 10MEQ/50ML IVPB 50 ML IV SCH (06:25)
[2019-07-27] MEDS: MAGNESIUM 1 GM/100 ML IVPB 100 ML IV SCH (06:26)
[2019-07-27] MEDS: KCL 20 MEQ TAB (K-DUR) PO SCH (06:28)
[2019-07-27] MEDS: inSUlin ASPART (NovoLOG) 1 UNIT/0.01 ML (CHARGE PER UNIT) SC SCH ×2 (06:38→11:36)
[2019-07-27 07:50] VITALS: BP 157/89
--- NOTE | 2019-07-27 08:03 | Diagnostic Imaging Report ---
INDICATION: Dyspnea, altered mental status. TECHNIQUE: Single view chest 3:26 AM. CORRELATION STUDY: 07/26/2019 FINDINGS: Heart size borderline enlarged but stable. Vasculature overall within normal limits. Some increased density suggested about the right lung base medially. Remaining lung thurston are otherwise stable. IMPRESSION: 1. Density of the right lung base medially could reflect atelectasis, infiltrate or even perhaps aspiration. Followup imaging as clinically warranted. Dictated by: Dictated on workstation # [id number]
[2019-07-27] MEDS: risperiDONE 1 MG (RisperDAL) TAB PO SCH (08:41)
--- NOTE | 2019-07-27 09:49 | Physician Query Clarification ---
PQ-Further Specificity Admission/Discharge Admission Date: Jul 24, 2019 at 09:30 Discharge Date: The medical record reflects the following clinical scenario: History/Risk Factors: Acute Kidney Injury Rhabdomyolysis Dehydration Clinical Findings: Altered mental status(delirium), bizarre behavior (eating tree leaves). Treatment: IV Ativan, IV fluids, Risperdal 1 mg. Question: Can you further specify Cause/Etiology of the Serotonin Syndrome after study per the clinical indicators above? Please document a response in the Progress Notes or Discharge Summary. 1. Toxic effect of ingestion of tree leaves. 2. Toxic effect of certain medications (please specify). 3. Acute renal failure. 4. Rhabdomyolysis. 5. Other, with explanation of the clinical findings. 6. Clinically undetermined, no explanation for the clinical findings. PHYSICIAN RESPONSE Can you specify per above: 2 Please remember a lack of response to the above will prompt a phone page by CDI/Coding staff. In responding to this query, please exercise your independent professional judgment. The purpose of this communication is to more accurately reflect the complexity of your patients condition. The fact that a question is asked does not imply that any particular answer is desired or expected. Thank you for your timely response to this clarification. Requestors name: Deyanira Solano [facility] Phone # ext [phone] or [phone] THIS PHYSICIAN QUERY FORM IS A PERMANENT PART OF THE MEDICAL RECORD DEYANIRA SOLANO Jul 27, 2019 09:48 JALYN PALACIO MD Jul 27, 2019 19:34
[2019-07-27 11:08] VITALS: BP 173/77
--- NOTE | 2019-07-27 12:19 | Discharge Summary ---
Diagnosis/Chief Complaint Date of Admission Jul 24, 2019 at 09:30 Date of Discharge 07/27/2019 Admission Diagnosis Admission Diagnosis See problem list Discharge Diagnosis See below Problems/Diagnosis: (1) Delirium due to another medical condition, acute, hyperactive Assessment & Plan: 07/26: Improving, patient still seems slow to answer questions, Will get PT to eval patient, Will plan on d/c home tomorrow 07/27: patient at baseline this AM, plan to d/c home Status: Acute (2) Rhabdomyolysis Assessment & Plan: 07/26: Continue IV hydration and encourage PO hydration Qualifiers: Qualified Codes: M62.82 - Rhabdomyolysis Status: Resolved Resolution Date/Time: 07/27/19 @ 19:38 (3) Serotonergic syndrome Status: Acute (4) Acute kidney injury Status: Resolved Resolution Date/Time: 07/26/19 @ 13:37 Discharge Summary-Simple/Stand Consultations Discharge Physical Examination Allergies: Coded Allergies: No Known Drug Allergies (Unverified , 06/29/11) Vitals & I&Os Vital Sign - Last 12Hours Date Time Temp Pulse Resp B/P (MAP) Pulse Ox O2 Delivery O2 Flow Rate FiO2 07/27/19 11:08 36.5 66 20 173/77 (109) 95 Room Air Intake and Output 07/27/19 00:00 Intake Total 2100 ml Output Total 1550 ml Balance 550 ml General Appearance: Alert, Oriented X3, Cooperative, No Acute Distress Respiratory: Clear to Auscultation, Normal Air Movement Cardiovascular: Regular Rate, No Murmurs Abdominal: Normal Bowel Sounds, Soft, No Tenderness, No Masses Extremities: No Edema, No Tenderness/Swelling Skin: Other (mild erythematous rash on chest and legs: improving) Neuro: Normal Gait, Normal Speech, Strength at 5/5 X4 Ext Psych/Mental Status: Mental Status NL, Mood NL Hospital Course See final discharge diagnosis. Discussion & Recommendations 49 yo F that presented with altered mental status and severe rash after restarting paxil at her previous dose after being off of it for a while. Patient started having psychosis that improved after medication was stopped and she was placed on IVFs. She was found to be in rhabdomyolysis and acute kidney failure. Both resolved with IVFs prior to d/c from hospital. Discharge Condition at discharge stable Instructions to patient/family Please see electronic discharge instructions given to patient. Discharge Medications Reviewed and agree with Discharge Medication list on patient's Discharge Instruction sheet Clinical Quality Measures DVT/VTE Risk/Contraindication: Risk Factor Score Per Nursin RFS Level Per Nursing on Admit: 3=High Copy Copies To 1: Hammad LORENZO HOLLY R MD Jul 27, 2019 12:19
[2019-07-27] MEDS ORDERED: PRD20T PO (12:21)
--- NOTE | 2019-07-27 12:23 | Discharge Instructions ---
Discharge [facility] Reconcile Patient Problems Problems Reviewed?: Yes Discharge Medications New, Converted or Re-Newed RX: Transmitted to Pharmacy New Medications: Prednisone (Prednisone) 20 Mg Tab 20 MG PO DAILY, #22 TAB Take 3 tabs(60mg)daily,decrease by 1/2 tab(10mg)every other day. Continued Medications: Acetaminophen (Acetaminophen) 500 Mg Tablet 1000 MG PO Q8H PRN for PAIN-MILD, TAB Atorvastatin Calcium (Atorvastatin Calcium) 40 Mg Tablet 40 MG PO HS, TAB Calcium Carb/D3/Magnesium/Zinc (Flaco Mag Zinc + D3 Tablet) 1 Each Tablet 1 EACH PO DAILY, TAB Calcium Carbonate (Tums Smoothies) 300 Mg Tab.chew 600 MG PO TID PRN for HEARTBURN, TAB Dulaglutide (Trulicity) 0.75 Mg/0.5 Ml Pen.injctr 0.75 MG SQ WEEK, VIAL Fluticasone Propionate (Flonase Allergy Relief) 9.9 Ml Lynn.susp 1 SPRAY NS BID PRN for CONGESTION, #1 EACH Glipizide (Glipizide) 10 Mg Tablet 10 MG PO DAILY, TAB Insulin Aspart (Novolog) 100 Unit/1 Ml Susp 15 UNITS SQ AC, EACH LAST FILLED THRU PALS ON 03-27-2019 FOR A 90 DAY SUPPLY Insulin Determir (Levemir) 1,000 Units/10 Ml Soln 15 UNITS SQ BID, EA LAST FILLED THRU PALS ON 03-27-2019 FOR A 90 DAY SUPPLY Lisinopril (Lisinopril) 10 Mg Tablet 10 MG PO DAILY, TAB Metformin HCl (Metformin HCl ER) 500 Mg [id number] 1000 MG PO BID Multivitamin (Multi-Vitamin Daily) 1 Each Tablet 1 EACH PO DAILY, TAB Potassium Gluconate (Potassium Gluconate 595 MG) 99 Mg Tablet 99 MG PO DAILY, TAB Discontinued Medications: Paroxetine HCl (Paroxetine HCl) 40 Mg Tablet 40 MG PO DAILY, TAB Patient Instructions Goal/Follow Up Appt: You have a hospital f.u appt on Friday @ 140PM with Hammad Activity & Diet Discharge Diet: ADA Diet Activity as Tolerated: Yes Copy Copies To 1: Samaria LORENZO APRN GAULT, HOLLY R MD Jul 27, 2019 12:23
== END 2019-07-27 14:04 | disposition home or self-care (01) | DRG 683 ==
LOC: EDUNIT# 08:46 → ER 08:47 → ICU 09:30 → 4TH 07-26 08:22
PROVIDERS: ADMIT Internal Medicine; ATTEND Internal Medicine
DX: N17.9 Acute kidney failure, unspecified (principal); M62.82 Rhabdomyolysis; T43.225A Adverse effect of selective serotonin reuptake inhibitors, initial encounter; G25.89 Other specified extrapyramidal and movement disorders; E87.2 Acidosis; Z68.42 Body mass index [BMI] 45.0-49.9, adult; F05 Delirium due to known physiological condition; E86.0 Dehydration; E11.65 Type 2 diabetes mellitus with hyperglycemia; F41.9 Anxiety disorder, unspecified; F32.9 Major depressive disorder, single episode, unspecified; L27.0 Generalized skin eruption due to drugs and medicaments taken internally; E66.9 Obesity, unspecified; R13.10 Dysphagia, unspecified; Z79.4 Long term (current) use of insulin
CPT/HCPCS: 36415; 51702; 70450; 71045; 80048; 80053; 80306; 80320; 80329; 81000; 82550; 82962; 83735; 84100; 84703; 85025; 85027; 87081; 93005; 93041; 96361; 96365; 96375

== ENCOUNTER 2019-09-15 19:20 | Emergency (ER) | payer SELFPAY ==
[~2019-09-15] VITALS: Ht 175 cm; Wt 110.5 kg
[~2019-09-15 19:20] MED LIST changes: +ACET-78 PO; +ATOR20TA66 PO; +ATOR40TA70 PO; +CA C1TAB70 PO; +CALC-778 PO; +DULA0.75 SQ; +FLUT9.9S NS; +GLIP10TA13 PO; +INSU100V16 SQ; +INSU100V5 SQ; +LISI10TA2 PO; +METF-760 PO; +MULT-974 PO; +PARO25TA PO; +PARO40TA3 PO; +POTA99TA17 PO; +PRD20T PO; +[UNRECOGNIZED DRUG - CODE] PO
--- NOTE | 2019-09-15 19:43 | ED General ---
General Chief Complaint: General Problems/Pain Stated Complaint: TAILBONE PAIN Nursing Triage Note: PATIENT STATES THAT SHE FELL IN HER LIVING ROOM ON HER TAILBONE. Nursing Sepsis Screen: No Definite Risk Source of Information: Patient History of Present Illness Date Seen by Provider: Sep 15, 2019 Time Seen by Provider: 19:40 Initial Comments to ER with reports of tailbone pain after she sat down abruptly on the corner of her chair at home. This occurred just prior to arrival. Timing/Duration: 1-3 Hours Severity: Moderate Associated Systoms: Cough Allergies and Home Medications Allergies Coded Allergies: No Known Drug Allergies (Unverified , 06/29/11) Home Medications Acetaminophen 500 Mg Tablet, 1,000 MG PO Q8H PRN for PAIN-MILD, (Reported) Atorvastatin Calcium 40 Mg Tablet, 40 MG PO HS, (Reported) Calcium Carb/D3/Magnesium/Zinc 1 Each Tablet, 1 EACH PO DAILY, (Reported) Calcium Carbonate 300 Mg Tab.chew, 600 MG PO TID PRN for HEARTBURN, (Reported) Dulaglutide 0.75 Mg/0.5 Ml Pen.injctr, 0.75 MG SQ WEEK, (Reported) Fluticasone Propionate 9.9 Ml [place].susp, 1 SPRAY NS BID PRN for CONGESTION, (Reported) Glipizide 10 Mg Tablet, 10 MG PO DAILY, (Reported) Insulin Aspart 100 Unit/1 Ml Susp, 15 UNITS SQ AC, (Reported) LAST FILLED THRU PALS ON 03-27-2019 FOR A 90 DAY SUPPLY Insulin Determir 1,000 Units/10 Ml Soln, 15 UNITS SQ BID, (Reported) LAST FILLED THRU PALS ON 03-27-2019 FOR A 90 DAY SUPPLY Lisinopril 10 Mg Tablet, 10 MG PO DAILY, (Reported) Metformin HCl 500 Mg [id number], 1,000 MG PO BID, (Reported) Multivitamin 1 Each Tablet, 1 EACH PO DAILY, (Reported) Potassium Gluconate 99 Mg Tablet, 99 MG PO DAILY, (Reported) Prednisone 20 Mg Tab, 20 MG PO DAILY Take 3 tabs(60mg)daily,decrease by 1/2 tab(10mg)every other day. Prescribed by: JALYN PALACIO on 07/27/19 1221 Patient Home Medication List Home Medication List Reviewed: Yes Review of Systems Review of Systems Constitutional: see HPI EENTM: see HPI Respiratory: no symptoms reported Cardiovascular: no symptoms reported Genitourinary: no symptoms reported Musculoskeletal: no symptoms reported Skin: no symptoms reported Psychiatric/Neurological: No Symptoms Reported Hematologic/Lymphatic: No Symptoms Reported Past [id number]-[id number] Hx Patient Social History Alcohol Use: Denies Use Recreational Drug Use: No Smoking Status: Never a Smoker 2nd Hand Smoke Exposure: No Recent Foreign Travel: No Contact w/Someone Who Travel: No Recent Infectious Disease Expo: No Recent Hopitalizations: No Immunizations Up To Date Tetanus Booster (TDap): Unknown PED Vaccines UTD: Yes Seasonal Allergies Seasonal Allergies: No Past Medical History Surgeries: Yes Respiratory: No Cardiac: No Neurological: No Genitourinary: No Gastrointestinal: No Musculoskeletal: No Endocrine: Yes HEENT: No Cancer: No Psychosocial: Yes Anxiety, Depression Integumentary: No Physical Exam Vital Signs Vital Signs - First Documented 09/15/19 19:29 Temp 36.8 Pulse 110 Resp 20 B/P (MAP) 123/72 (89) Pulse Ox 97 Capillary Refill : Less Than 3 Seconds Height, Weight, BMI Height: '" Weight: lbs. oz. kg; 36.00 BMI Method: General Appearance: No Apparent Distress, WD/WN Eyes: Bilateral Eye Normal Inspection, Bilateral Eye PERRL, Bilateral Eye EOMI HEENT: PERRL/EOMI, TMs Normal Neck: Full Range of Motion, Normal Inspection Respiratory: No Accessory Muscle Use, No Respiratory Distress Extremity: Normal Capillary Refill, Normal Inspection Neurologic/Psychiatric: Alert, Oriented x3, No Motor/Sensory Deficits Skin: Normal Color, Warm/Dry, Other (no bruising to the sacrum) Progress/Results/Core Measures Suspected Sepsis Recent Fever Within 48 Hours: No Infection Criteria Present: None New/Unexplained Altered Menta: No Sepsis Screen: No Definite Risk SIRS Temperature: Pulse: 110 Respiratory Rate: 20 Blood Pressure 123 /72 Mean: 89 Results/Orders My Orders Orders - THUAN VELASQUEZ APRN Ibuprofen Tablet (Motrin Tablet) (09/15/19 19:45) Sacrum And Coccyx (09/15/19 19:36) Medications Given in ED Current Medications Medications Dose Ordered Sig/Rina Route Start Time Stop Time Status Last Admin Dose Admin Ibuprofen 800 mg ONCE ONCE PO 09/15/19 19:45 09/15/19 19:46 DC 09/15/19 19:41 800 MG Vital Signs/I&O 09/15/19 09/15/19 19:29 19:41 Temp 36.8 36.8 Pulse 110 Resp 20 B/P (MAP) 123/72 (89) Pulse Ox 97 Capillary Refill : Less Than 3 Seconds Blood Pressure Mean: 89 POS Departure Impression Primary Impression: Tailbone injury Qualified Codes: S39.92XA - Unspecified injury of lower back, initial encounter Disposition: HOME, SELF-CARE Condition: Stable Departure-Patient Inst. Decision time for Depature: 20:11 Referrals: [facility] (PCP/Family) Primary Care Physician Patient Instructions: Contusion (DC) Add. Discharge Instructions: 1. Tylenol and motrin for pain 2. Return to ER for any concern 3. Follow up with your doctor next week All discharge instructions reviewed with patient and/or family. Voiced understanding. THUAN VELASQUEZ APRN Sep 15, 2019 19:43 POS
[2019-09-15] MEDS ORDERED: IBUPROFEN 800 MG (MOTRIN) TAB PO ONE (19:45)
--- NOTE | 2019-09-15 20:08 | Diagnostic Imaging Report ---
INDICATION: Tailbone injury from a fall AP and lateral views of the sacrum show no appreciable fracture or dislocation. IMPRESSION: Negative sacrum and coccyx Dictated by: Dictated on workstation # [id number]
[2019-09-15 20:15] VITALS: BP 123/72
--- OUTSIDE RECORDS SUMMARY | 2019-10-11 17:41 | XMS REPORT | Continuity of Care Document ---
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 10*3/uL 130-400 Automated blood platelet mean volume measurement 10.2 [foz_us] 7.4-10.4 Automated blood neutrophils/100 leukocytes 86 % 42-75 Automated blood lymphocytes/100 leukocytes 10 % 12-44 Blood monocytes/100 leukocytes 4 % 0-12 Automated blood eosinophils/100 leukocytes 0 % 0-10 Automated blood basophils/100 leukocytes 0 % 0-10 Blood neutrophils automated count (number/volume) 8.9 10*3 1.8-7.8 Blood lymphocytes automated count (number/volume) 1.0 10*3 1.0-4.0 Blood monocytes automated count (number/volume) 0. 5 10*3 0.0-1.0 Automated eosinophil count 0.0 10*3/uL 0 .0-0.3 Automated blood basophil count (count/volume) 0.0 10*3/uL 0.0-0.1 Whole blood basic metabolic panel - 07/13 02/28 05:15 Serum or plasma sodium measurement (moles/volume) 140 mmol/L 135-145 Serum or plasma potassium measurement (moles/volume) 4.8 mmol/L 3.6-5.0 Serum or plasma chloride measurement (moles/volume) 112 mmol/L 98-107 Carbon dioxide 18 mmol/L 21-32 Serum or plasma anion gap determination (moles/volume) 10 mmol/L 5-14 Serum or plasma urea nitrogen measurement (mass/volume ) 18 mg/dL 7-18 Serum or plasma creatinine measurement (mass/volume) 0.94 mg/dL 0.60-1.30 Serum or plasma urea nitrogen/creatinine mass ratio 19 NRG Serum or plasma creatinine measurement w ith calculation of estimated glomerular filtration rate > NRG Serum or plasma glucose measurement (mass/volume) 281 mg/dL 70-105 Serum or plasma calcium measurement (mass/volume) 7.8 mg/dL 8.5-10.1 Serum or plasma phosphate measurement (m ass/volume) - 07/27/19 05:15 Serum or plasma phosphate measurement (mass/volume) 2.6 mg/dL 2.3-4.7 Magnesium - 07/27/19 05:15 Magnesium 2.2 mg/dL 1.6-2.4 Capillary blood glucose measurement by g lucometer (mass/volume) - 07/27/19 05:41 Capillary blood glucose measurement by glucometer (mas s/volume) 299 mg/dL 70-110 Capillary blood glucose measurement by g lucometer (mass/volume) - 07/27/19 11:11 Capillary blood glucose measurement by glucometer (mas s/volume) 297 mg/dL 70-110 Encounters ACCT No. Visit Date/Time Discharge Status Pt. Type Provider Facility Loc./Unit Complaint [id number] 08/31/2019 08:00:00 08/31/2019 23:59:5 9 CLS Outpatient ISRAEL MOSQUEDA [facility] [id number] 04/19/2019 08:00:00 Document Registration [id number] 07/03/2018 09:20:00 Document Registration [id number] 05/19/2018 08:20:00 Document Registration [id number] 06/17/2017 08:00:00 Document Registration [id number] 09/15/2019 19:22:00 20:15:00 DIS Outpatient THUAN VELASQUEZ APRN Via [facility] ER TAILBONE PAIN [id number] 07/24/2019 09:30:00 14:04:00 DIS Inpatient TEDDY DICKERSON DO, V ia [facility] 4TH AMS, SUSPECT SEROTONERG IC SYNDROME,RHABDOMYOLYSIS, [id number] 06/26/2016 14:38:00 016 23:59:59 CLS Outpatient JARROD DÍAZ MD [facility] LAB ABDOMINAL PAIN [id number] 06/26/2016 11:55:00 016 23:59:59 CLS Outpatient ARJUN SANCHEZ, JARROD Wong [facility] LAB ABODOMINAL PAIN [id number] 03/07/2015 09:12:00 015 23:59:59 CLS Outpatient TRACI SANCHEZ, APOLONIA Soria [facility] RAD THYROID NODULE, DM 2 [id number] 06/29/2011 11:13:00 Document Registration [id number] 10/02/2016 09:45:00 Document Registration [id number] 09/08/2010 13:27:00 09/08/2010 23:59: 59 CLS Outpatient ZORA SAXENA APRN
== END 2019-09-15 20:15 | disposition home or self-care (01) ==
LOC: EDUNIT# 19:20 → ER 19:22
DX: S39.92XA Unspecified injury of lower back, initial encounter (principal); F41.9 Anxiety disorder, unspecified; F32.9 Major depressive disorder, single episode, unspecified; Z79.51 Long term (current) use of inhaled steroids; Z79.4 Long term (current) use of insulin; W22.8XXA Striking against or struck by other objects, initial encounter; Y92.009 Unspecified place in unspecified non-institutional (private) residence as the place of occurrence of the external cause
CPT/HCPCS: 72220

== ENCOUNTER 2020-03-05 15:00 | Observation (INO) | payer SELFPAY ==
[~2020-03-05] VITALS: Ht 165 cm; Wt 107.5 kg
[~2020-03-05 15:00] MED LIST changes: -PARO25TA PO; +PARO25TA2 PO
--- OUTSIDE RECORDS SUMMARY | 2020-03-05 15:07 | XMS REPORT | Continuity of Care Document ---
Author Organization Unknown Address Unknown Phone Unavailable Allergies Active Description Code Type Severity Reaction Onset Reported/Identified Relationship to Patient Clinical Status Yes NO KNOWN DRUG ALLERGIES UNKNOWN UNKNOWN Yes No Known Drug Allergies [id number] Drug Allergy Unknown N/A 06/29/2011 Medications There is no data. Problems Date Dx Coded Attending Type Code Diagnosis Diagnosed By 05/26/2008 ZORA SAXENA APRN 250.00 DIABETES II CONTROLLED 09/02/2008 ESME SAXENA APRNYL A 461.9 SINUSITIS ACUTE 09/02/2008 ESME SAXENA APRNYL A 784.0 HEADACHE 09/02/2008 ESME SAXENA APRNYL [...] A 250.02 DIABETES MELLITUS POORLY CONTROLLED 06/16/2010 ZORA SAXENA APRN A 787.91 DIARRHEA 08/16/2010 ESME SAXENA APRNYL [...] ADULT 07/27/2019 DICKERSON DO, TEDDY Ot Z79.4 NURSING HOME (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 OF INSULIN 09/15/2019 ARJUN SANCHEZ, JARROD Wong Ot R10.9 UNSPECIFIED ABDOMINAL PAIN 09/15/2019 JARROD DÍAZ MD Ot R10.9 UNSPECIFIED ABDOMINAL PAIN 09/15/2019 JARROD DÍAZ MD Ot R10.9 UNSPECIFIED ABDOMINAL PAIN 09/15/2019 JARROD DÍAZ MD Ot R10.9 UNSPECIFIED ABDOMINAL PAIN 09/20/2019 THUAN VELASQUEZ APRN Ot F32 .9 MAJOR DEPRESSIVE DISORDER, SINGLE EPISOD 09/20/2019 THUAN 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 Ot F41 .9 ANXIETY DISORDER, UNSPECIFIED 09/20/2019 THUAN VELASQUEZ APRN Ot M54 .5 LOW BACK PAIN 09/20/2019 THUAN VELASQUEZ APRN Ot S39.92XA UNSPECIFIED INJURY OF LOWER BACK, INITIA 09/20/2019 THUAN VELASQUEZ APRN Ot W22.8XXA STRIKING AGAINST OR STRUCK BY OTHER OBJE 09/20/2019 THUAN VELASQUEZ APRN Ot Y92.[address] IN UNSP NON-INSTITUT (PRIVATE 09/20/2019 THUAN VELASQUEZ APRN Ot 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 09/20/2019 THUAN VELASQUEZ APRN Ot Z79.51 WORD PROCESSING OPERATOR (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 OF INHALED STERO Procedures Code Description [place] [address] OMT/ 1-2 REGIONS 03/27/2009 Results Test Result [...] urinalysis with reflex to culture NO NRG Urine Culture, Routine - 05/24/17 11:00 Urine Culture, Routine Note CMP - 06/17/17 09:26 Glucose, Serum 112 mg/dL [...] IU/L 0-40 ALT (SGPT) 27 IU/L 0-32 CBC With Differential/Platelet - 7 09:26 WBC 8.9 x10E3/uL 3.4-10.8 RBC 4.46 x10E6/uL 3.77-5.28 Hemoglobin 13.0 g/dL 11.1-15.9 Hematocrit 39.2 % 34.0-46.6 MCV 88 fL 79-97 MCH 29.1 pg 26.6-33.0 MCHC 33.2 g/dL 31.5-35.7 RDW 13.9 % 12.3-15.4 Platelets 389 x10E3/uL 150-379 Neutrophils 66 % Lymphs 26 % Monocytes 6 % Eos 2 % Basos 0 % Neutrophils (Absolute) 5.8 x10E3/uL 1.4- 7.0 Lymphs (Absolute) 2.3 x10E3/uL 0.7-3.1 Monocytes(Absolute) 0.6 x10E3/uL 0.1-0.9 Eos (Absolute) 0.1 x10E3/uL 0.0-0.4 Baso (Absolute) 0.0 x10E3/uL 0.0-0.2 Immature Granulocytes 0 % Immature Grans (Abs) 0.0 x10E3/uL 0.0-0. 1 Comp. Metabolic Panel (14) - 06/17/17 09 :26 Glucose, Serum 112 mg/dL 65-99 BUN 16 [...] IU/L 0-40 ALT (SGPT) 27 IU/L 0-32 Lipid Panel - 06/17/17 09:26 Cholesterol, Total 201 mg/dL 100-199 Triglycerides 196 mg/dL 0-149 HDL Cholesterol 49 mg/dL >39 VLDL Cholesterol [place] 39 mg/dL 5-40 LDL Cholesterol Calc 113 mg/dL 0-99 Microalb/Creat Ratio, Randm Ur - 7 09:26 Creatinine, Urine 107.6 mg/dL Not Estab. Microalbumin, Urine 158.1 ug/mL Not Esta b. Microalb/Creat Ratio 146.9 mg/g creat 0. 0-30.0 Thyroid [place] Profile - 06/17/17 09:26 TSH 1.830 uIU/mL 0.450-4.500 THYROID ANALYZER - 05/19/18 09:46 TSH 1.40 [...] in urine sediment by light kiet roscopy 10-25 NRG Urine beta human chorionic gonadotropin (hCG) [...] by glucometer (mas s/volume) 297 mg/dL 70-110 LIPID PANEL - 12/03/19 09:02 CHOLESTEROL, TOTAL 265 mg/dL <200 HDL CHOLESTEROL 51 mg/dL > OR = 50 TRIGLYCERIDES 357 mg/dL <150 LDL-CHOLESTEROL 159 mg/dL (calc) NRG CHOL/HDLC RATIO 5.2 (calc) <5.0 NON HDL CHOLESTEROL 214 mg/dL (calc) <13 0 Encounters ACCT No. Visit Date/Time Discharge Status Pt. Type Provider Facility Loc./Unit Complaint [id number] 12/03/2019 08:00:00 12/03/2019 23:59:5 9 CLS Outpatient JAYLIN [facility]EL [facility] [id number] 12/03/2019 08:00:00 Document Registration [id number] 04/19/2019 08:00:00 Document Registration [id number] 07/03/2018 09:20:00 Document Registration [id number] 05/19/2018 08:20:00 Document Registration [id number] 06/17/2017 08:00:00 Document Registration [id number] 09/15/2019 19:22:00 20:15:00 DIS Outpatient THUAN VELASQUEZ APRN Via [facility] ER TAILBONE PAIN [id number] 07/24/2019 09:30:00 14:04:00 DIS Inpatient TUAN DO, TEDDY V ia [facility] 4TH AMS, SUSPECT SEROTONERG IC SYNDROME,RHABDOMYOLYSIS, [id number] 06/26/2016 14:38:00 23:59:59 CLS Outpatient JARROD DÍAZ MD [facility] LAB ABDOMINAL PAIN [id number] 06/26/2016 11:55:00 016 23:59:59 CLS Outpatient JARROD DÍAZ MD [facility] LAB ABODOMINAL PAIN [id number] 03/07/2015 09:12:00 23:59:59 CLS Outpatient APOLONIA AVILES MD [facility] RAD THYROID NODULE, DM 2 [id number] 06/29/2011 11:13:00 Document Registration [id number] 06/18/2017 11:08:00 Document Registration [id number] 05/30/2017 14:08:00 Document Registration [id number] 10/02/2016 09:45:00 Document Registration [id number] 09/08/2010 13:27:00 09/08/2010 23:59: 59 CLS Outpatient ZORA SAXENA APRN
--- NOTE | 2020-03-05 15:30 | ED General ---
General Chief Complaint: Altered Mental Status Stated Complaint: CONFUSION Nursing Triage Note: ARRIVED VIA EMS FROM HOME. CAME HOME FROM WORK YESTERDAY TO FIND HER CONFUSED AND CONFUSION AND HALLUCINATIONS REMAIN TODAY. STATES THE LAST TIME SHE WAS THIS WAY HER BLOOD SUGAR WAS ABOVE 300 ANS SHE HAS NOT BEEN TAKEN HER MEDICATIONS. BLOOD SUGAR FOR EMS WAS 374. UPON ARRIVAL PT ALERT ET TALKING BUT NOT MAKING SENSE WITH CONVERSATION AND SPEAKING RANDOM WORDS. 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 THEN PT WILL SUDDENLY STATE " I'M GOING BACK TO SLEEP" AND STOP TALKING AND CLOSE HER EYES SOME OF THIS BEHAVIOR DOES APPEAR TO BE AT WILL, AND PT WILL CONVERSE FAIRLY NORMALLY BRIEFLY AND INTERJECT HERSELF INTO CONVERSATION THAT STAFF MEMBERS ARE HAVING WITH EACH OTHER, OR REPEAT THINGS THAT STAFF MEMBERS ARE SAYING. AT TIMES SHE WILL FOLLOW COMMANDS, AND AT TIMES SHE REFUSES TO DO ANYTHING AND WILL CLENCH HER FISTS, CROSS HER ARMS TIGHTLY OVER HER CHEST, AND WILL CLENCH HER LEGS TOGETHER, ETC. AT TIMES, SHE WILL UNCLENCH WHEN ASKED TO. PT STATES HER NAME IS "GOD" STATES SHE IS AT [employer] ( THIS IS AFTER EMS WAS TALKING ABOUT [employer] WHEN THEY WERE STILL IN THE ROOM ) UNABLE TO STATE DATE/TIME/MONTH/SITUATION/ETC. 1643--SPOKE WITH , HE STATES THIS IS AT LEAST THE 3RD TIME THIS HAS JANET MONTILLA. HE STATES THAT SHE WAS FINE ON FRIDAY, AND SHE HAD TO GO TO [place] TO GET AN INJECTION IN HER LEFT EYE FOR MACULAR DEGENERATION. HE LEFT/WENT ON THE ROAD ON FRIDAY AND GOT BACK YESTERDAY AFTER NOON AND FOUND HER IN THIS CONDITION--CONFUSED AND DELUSIONAL AND TALKING NONSENSE. HE STATES THAT IT APPEARS THAT SHE HAS NOT SLEPT ALL WEEK, SHE HAS BEEN POSTING ALL KINDS OF THINGS ON Path ALL DAY AND ALL NIGHT--RANDOM, BIZARRE, THINGS, LIKE SHE IS "GOING TO SAVE THE WORLD", ETC. HE STATES SHE DID SLEEP FROM 2200 UNTIL HE WOKE HER UP AT 1300 THIS AFTERNOON, AND SHE WOKE UP WITH CONTINUED ABNORMAL BEHAVIOR/MENTATION. HE ALSO STATES IT APPEARS THAT SHE HAS NOT BEEN TAKING HER MEDICATIONS, AND SHE REFUSED TO ALLOW HIM TO CHECK HER BLOOD SUGAR, OR FOR HIM TO GIVE HER HER MEDICATIONS AND SHE REFUSED TO EAT AND DRINK FOR HIM, BUT SHE DID DRINK WATER AND A SUGAR FREE POWER OZIEL JUST PRIOR TO ARRIVAL. PCP: [facility] Allergies and Home Medications Allergies Coded Allergies: No Known Drug Allergies (Unverified , 06/29/11) Home Medications Acetaminophen 500 Mg Tablet, 1,000 MG PO Q8H PRN for PAIN-MILD, (Reported) Atorvastatin Calcium 40 Mg Tablet, 40 MG PO HS, (Reported) Calcium Carb/D3/Magnesium/Zinc 1 Each Tablet, 1 EACH PO DAILY, (Reported) Calcium Carbonate 300 Mg Tab.chew, 600 MG PO TID PRN for HEARTBURN, (Reported) Dulaglutide 0.75 Mg/0.5 Ml Pen.injctr, 0.75 MG SQ WEEK, (Reported) Fluticasone Propionate 9.9 Ml [place].susp, 1 SPRAY NS BID PRN for CONGESTION, (Reported) Glipizide 10 Mg Tablet, 10 MG PO DAILY, (Reported) Insulin Aspart 100 Unit/1 Ml Susp, 15 UNITS SQ AC, (Reported) LAST FILLED THRU PALS ON 03-27-2019 FOR A 90 DAY SUPPLY Insulin Determir 1,000 Units/10 Ml Soln, 15 UNITS SQ BID, (Reported) LAST FILLED THRU PALS ON 03-27-2019 FOR A 90 DAY SUPPLY Lisinopril 10 Mg Tablet, 10 MG PO DAILY, (Reported) Metformin HCl 500 Mg Rbopeuc79y, 1,000 MG PO BID, (Reported) Multivitamin 1 Each Tablet, 1 EACH PO DAILY, (Reported) Potassium Gluconate 99 Mg Tablet, 99 MG PO DAILY, (Reported) Prednisone 20 Mg Tab, 20 MG PO DAILY Take 3 tabs(60mg)daily,decrease by 1/2 tab(10mg)every other day. Prescribed by: JALYN PALACIO on 07/27/19 1221 Patient Home Medication List Home Medication List Reviewed: Yes Review of Systems Review of Systems Constitutional: other (UNABLE TO OBTAIN FROM PT) Past Atpjbzf-Szfrhu-Ixsqee Hx Patient Social History Smoking Status: Unknown if Ever Smoked 2nd Hand Smoke Exposure: No Recent Foreign Travel: No Contact w/Someone Who Travel: No Recent Infectious Disease Expo: No Recent Hopitalizations: No Immunizations Up To Date Tetanus Booster (TDap): Unknown PED Vaccines UTD: Yes Seasonal Allergies Seasonal Allergies: No Past Medical History Surgeries: Yes Gallbladder, Hysterectomy Respiratory: No Cardiac: Yes High Cholesterol, Hypertension 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 oz. kg; 33.00 BMI Method: General Appearance: No Apparent Distress, Obese HEENT: PERRL/EOMI, Other (VERY HIRSUITE) Neck: Normal Inspection Respiratory: Normal Breath Sounds, No Accessory Muscle Use, No Respiratory Distress Cardiovascular: Regular Rate, Rhythm, No Edema, No JVD, No Murmur, Normal Peripheral Pulses Gastrointestinal: Non Tender, Soft Extremity: Normal Inspection, No Pedal Edema Neurologic/Psychiatric: No Motor/Sensory Deficits; No Aphasia (SPEECH IS CLEAR. ); Disoriented, Other (MENTATION/BEHAVIOR NOTED ABOVE. ) Reflexes: 2+ Bicep (R), 2+ Bicep (L), 2+ Knee (R), 2+ Knee (L) Skin: Normal Color, Warm/Dry, Ecchymosis (RIGHT LOWER LEG--APPEARS OLD); No Rash Focused Exam Lactate Level 03/05/20 15:41: Lactic Acid Level 0.83 Lactic Acid Level Laboratory Tests Test 03/05/20 15:41 Lactic Acid Level 0.83 MMOL/L (0.50-2.00) Progress/Results/Core Measures Suspected Sepsis Recent Fever Within 48 Hours: No Infection Criteria Present: Suspected New Infection New/Unexplained Altered Menta: No Sepsis Screen: No Definite Risk SIRS Temperature: Pulse: 105 Respiratory Rate: 16 Laboratory Tests 03/05/20 15:41: White Blood Count 8.7 Blood Pressure 162 /94 Mean: 116 03/05/20 15:41: Lactic Acid Level 0.83 Laboratory Tests 03/05/20 15:41: Creatinine 1.17, INR Comment 1.0, Platelet Count 335, Total Bilirubin 0.5 Results/Orders Lab Results Laboratory Tests Test 03/05/20 15:12 03/05/20 15:25 03/05/20 15:41 03/05/20 16:20 Range/Units Glucometer 325 H 70-110 MG/DL Urine Color YELLOW Urine Clarity CLEAR Urine pH 6.0 5-9 Urine Specific [place] 1.025 H 1.016-1.022 Urine Protein 2+ H NEGATIVE Urine Glucose (UA) 1+ H NEGATIVE Urine Ketones 1+ H NEGATIVE Urine Nitrite NEGATIVE NEGATIVE Urine Bilirubin NEGATIVE NEGATIVE Urine Urobilinogen 0.2 < = 1.0 MG/DL Urine Leukocyte Esterase NEGATIVE NEGATIVE Urine RBC (Auto) TRACE-L NEGATIVE Urine RBC 0-2 /HPF Urine WBC 2-5 /HPF Urine Crystals NONE /LPF Urine Bacteria TRACE /HPF Urine Casts PRESENT /LPF Urine Hyaline Casts 2-5 H /LPF Urine Mucus NEGATIVE /LPF Urine Culture Indicated NO Urine Opiates Screen NEGATIVE NEGATIVE Urine Oxycodone Screen NEGATIVE NEGATIVE Urine Methadone Screen NEGATIVE NEGATIVE Urine Propoxyphene Screen NEGATIVE NEGATIVE Urine Barbiturates Screen NEGATIVE NEGATIVE Ur Tricyclic Antidepressants Screen NEGATIVE NEGATIVE Urine Phencyclidine Screen NEGATIVE NEGATIVE Urine Amphetamines Screen NEGATIVE NEGATIVE Urine Methamphetamines Screen NEGATIVE NEGATIVE Urine Benzodiazepines Screen NEGATIVE NEGATIVE Urine Cocaine Screen NEGATIVE NEGATIVE Urine Cannabinoids Screen NEGATIVE NEGATIVE White Blood Count 8.7 4.3-11.0 10^3/uL Red Blood Count 3.44 L 4.35-5.85 10^6/uL Hemoglobin 10.7 L 11.5-16.0 G/DL Hematocrit 32 L 35-52 % Mean Corpuscular Volume 92 80-99 FL Mean Corpuscular Hemoglobin 31 25-34 PG Mean Corpuscular Hemoglobin Concent 34 32-36 G/DL Red Cell Distribution Width 12.5 10.0-14.5 % Platelet Count 335 130-400 10^3/uL Mean Platelet Volume 9.5 7.4-10.4 FL Neutrophils (%) (Auto) 76 H 42-75 % Lymphocytes (%) (Auto) 14 12-44 % Monocytes (%) (Auto) 9 0-12 % Eosinophils (%) (Auto) 0 0-10 % Basophils (%) (Auto) 0 0-10 % Neutrophils # (Auto) 6.7 1.8-7.8 X 10^3 Lymphocytes # (Auto) 1.3 1.0-4.0 X 10^3 Monocytes # (Auto) 0.8 0.0-1.0 X 10^3 Eosinophils # (Auto) 0.0 0.0-0.3 10^3/uL Basophils # (Auto) 0.0 0.0-0.1 10^3/uL Prothrombin Time 13.9 12.2-14.7 SEC INR Comment 1.0 0.8-1.4 Activated Partial Thromboplast Time 28 24-35 SEC Sodium Level 137 135-145 MMOL/L Potassium Level 4.2 3.6-5.0 MMOL/L Chloride Level 106 98-107 MMOL/L Carbon Dioxide Level 19 L 21-32 MMOL/L Anion Gap 12 5-14 MMOL/L Blood Urea Nitrogen 24 H 7-18 MG/DL Creatinine 1.17 0.60-1.30 MG/DL Estimat Glomerular Filtration Rate 49 BUN/Creatinine Ratio 21 Glucose Level 306 H 70-105 MG/DL Lactic Acid Level 0.83 0.50-2.00 MMOL/L Calcium Level 9.1 8.5-10.1 MG/DL Corrected Calcium 9.1 8.5-10.1 MG/DL Magnesium Level 1.6 1.6-2.4 MG/DL Total Bilirubin 0.5 0.1-1.0 MG/DL Aspartate Amino Transf (AST/SGOT) 22 5-34 U/L Alanine Aminotransferase (ALT/SGPT) 20 0-55 U/L Alkaline Phosphatase 82 40-136 U/L Total Creatine Kinase 821 H 29-168 U/L Creatine Kinase MB 0.8 <6.6 NG/ML Myoglobin 270.2 H 10.0-92.0 NG/ML Total Protein 6.1 L 6.4-8.2 GM/DL Albumin 4.0 3.2-4.5 GM/DL Amylase Level 25 25-125 U/L Lipase 22 8-78 U/L TSH Rich Testing 0.41 0.35-4.94 UIU/ML Salicylates Level < 5.0 L 5.0-20.0 MG/DL Acetaminophen Level < 10 L 10-30 UG/ML Serum Alcohol < 10 <10 MG/DL Serum Test, Qualitative NEGATIVE NEGATIVE Test 03/05/20 16:45 Range/Units Blood Gas Puncture Site R RAD Blood Gas Patient Temperature 37.1 Arterial Blood pH 7.42 7.37-7.43 Arterial Blood Partial Pressure CO2 35 35-45 MMHG Arterial Blood Partial Pressure O2 100 H 79-93 MMHG Arterial Blood HCO3 22 L 23-27 MMOL/L Arterial Blood Total CO2 23.1 21.0-31.0 MMOL/L Arterial Blood Oxygen Saturation 98 94-100 % Arterial Blood Base Excess -1.7 -2.5-2.5 MMOL/L Darvin Test YES-POS Blood Gas Ventilator Setting NO Blood Gas Inspired Oxygen RA My Orders Orders - KEITH NEELY DO Accucheck Stat ONCE (03/05/20 15:02) Ed Iv/Invasive Line Start (03/05/20 15:02) Ekg Tracing (03/05/20 15:02) Monitor-Rhythm Ecg Trace Only (03/05/20 15:02) Alcohol (03/05/20 15:02) Amylase (03/05/20 15:02) Cbc With Automated Diff (03/05/20 15:02) Comprehensive Metabolic Panel (03/05/20 15:02) Drug Screen Stat (Urine) (03/05/20 15:02) Lactic Acid Analyzer (03/05/20 15:02) Lipase (03/05/20 15:02) Magnesium (03/05/20 15:02) Protime With Inr (03/05/20 15:02) Partial Thromboplastin Time (03/05/20 15:02) Thyroid Analyzer (03/05/20 15:02) Ua Culture If Indicated (03/05/20 15:02) Blood Culture (03/05/20 15:02) Chest 1 View, Ap/Pa Only (03/05/20 15:02) Catheter(Urinary) Insert & Ass 03,15 (03/05/20 15:12) Ct Head Wo-R/O Stroke (03/05/20 15:12) Acetaminophen (03/05/20 15:15) Arterial Blood Gas (03/05/20 15:15) Creatine Kinase (03/05/20 15:15) Creatine Kinase Mb (03/05/20 15:15) Salicylate (03/05/20 15:15) Myoglobin Serum (03/05/20 15:15) Hcg,Qualitative Serum (03/05/20 16:05) Insulin (Regular) Human (Humulin R (Per (03/05/20 16:45) Medications Given in ED Current Medications Medications Dose Ordered Sig/Rina Route Start Time Stop Time Status Last Admin Dose Admin Insulin Human Regular 15 unit ONCE ONCE IV 03/05/20 16:45 03/05/20 16:46 DC 03/05/20 16:48 15 UNIT Vital Signs/I&O 03/05/20 15:00 Temp 37.1 Pulse 105 Resp 16 B/P (MAP) 162/94 (116) Pulse Ox 95 O2 Delivery Room Air Capillary Refill : Less Than 3 Seconds Blood Pressure Mean: 116 Point of Care Testing Finger Stick Blood Glucose: 325 Progress Note : Progress Note NO DETERIORATION IN PT'S CONDITION DURING ER STAY ECG Initial ECG Impression Date: March 05, 2020 Initial ECG Impression Time: 15:14 Initial ECG Rate: 98 Initial ECG Rhythm: Normal Sinus Diagnostic Imaging Comments CXR--NO ACUTE PROCESS CT HEAD--NO ACUTE PROCESS PER RADIOLOGIST REPORTS AT 1633 Reviewed: Reviewed by Me Departure Communication (Admissions) Family Conversation 1643--SPOKE WITH PT'S AND DISCUSSED HER CONDITION AND NEED FOR ADMIT. HE AGREES WITH PLAN 1636--SPOKE WITH DR. GRECO, HOSPITALIST INDUSTRIAL CAFETERIA MANAGER FOR [facility]. ACCEPTS PT FOR ADMIT. Impression Primary Impression: ACUTE PSYCHOSIS/ALTERED MENTAL STATUS Additional Impressions: IDDM (insulin dependent diabetes mellitus) Mild dehydration Disposition: ADMITTED INPATIENT Condition: Stable Admissions Decision to Admit Reason: Admit from ER (General) Decision to Admit/Date: March 05, 2020 Time/Decision to Admit Time: 16:40 Departure-Patient Inst. Referrals: [facility] (PCP/Family) Primary Care Physician KEITH NEELY DO March 05, 2020 15:30
[2020-03-05 15:37] LABS: BILIRUBIN,URINE NEGATIVE (NEGATIVE); CLARITY,URINE CLEAR; COLOR,URINE YELLOW; GLUCOSE, URINE (UA) 1+ (NEGATIVE); KETONES,URINE 1+ (NEGATIVE); LEUKOCYTE ESTERASE ,URINE NEGATIVE (NEGATIVE); NITRITE,URINE NEGATIVE (NEGATIVE); PROTEIN,URINE 2+ (NEGATIVE)
[2020-03-05 15:47] LABS: BACTERIA,URINE TRACE /HPF; RBC,URINE 0-2 /HPF
[2020-03-05 15:48] LABS: BASOPHILS % (AUTO) 0 % (0-10); EOSINOPHILS % (AUTO) 0 % (0-10); HEMATOCRIT 32 % (35-52); HEMOGLOBIN 10.7 G/DL (11.5-16.0); LYMPHOCYTES # (AUTO) 1.3 X 10^3 (1.0-4.0); LYMPHOCYTES % (AUTO) 14 % (12-44); MEAN CORPUSCULAR HEMOGLOBIN 31 PG (25-34); MEAN CORPUSCULAR HGB CONC 34 G/DL (32-36); MEAN CORPUSCULAR VOLUME 92 FL (80-99); MEAN PLATELET VOLUME 9.5 FL (7.4-10.4); MONOCYTES # (AUTO) 0.8 X 10^3 (0.0-1.0); MONOCYTES % (AUTO) 9 % (0-12); NEUTROPHILS # (AUTO) 6.7 X 10^3 (1.8-7.8); NEUTROPHILS % (AUTO) 76 % (42-75); PLATELET COUNT 335 10^3/uL (130-400); RED CELL DISTRIBUTION WIDTH 12.5 % (10.0-14.5); WHITE BLOOD COUNT 8.7 10^3/uL (4.3-11.0)
[2020-03-05 15:49] LABS: AMPHETAMINE SCREEN, URINE NEGATIVE (NEGATIVE); BARBITURATE SCREEN URINE NEGATIVE (NEGATIVE); BENZODIAZEPINES SCREEN URINE NEGATIVE (NEGATIVE); CANNABINOID SCREEN, URINE NEGATIVE (NEGATIVE); COCAINE SCREEN URINE NEGATIVE (NEGATIVE); METHADONE STAT NEGATIVE (NEGATIVE); METHAMPHETAMINE SCREEN URINE S NEGATIVE (NEGATIVE); OPIATE SCREEN URINE NEGATIVE (NEGATIVE); OXYCODONE STAT NEGATIVE (NEGATIVE); PROPOXYPHENE STAT NEGATIVE (NEGATIVE); TRICYCLIC ANTIDEPRESSANTS SCRE NEGATIVE (NEGATIVE)
[2020-03-05 15:59] LABS: CHLORIDE 106 MMOL/L (98-107); POTASSIUM 4.2 MMOL/L (3.6-5.0); SODIUM 137 MMOL/L (135-145)
[2020-03-05 16:01] LABS: AMYLASE 25 U/L (25-125); CALCIUM 9.1 MG/DL (8.5-10.1)
[2020-03-05 16:02] LABS: GLUCOSE 306 MG/DL (70-105); TOTAL PROTEIN 6.1 GM/DL (6.4-8.2)
[2020-03-05 16:03] LABS: CARBON DIOXIDE 19 MMOL/L (21-32)
[2020-03-05 16:04] LABS: BILIRUBIN,TOTAL 0.5 MG/DL (0.1-1.0)
[2020-03-05 16:05] LABS: ALKALINE PHOSPHATASE 82 U/L (40-136); CREATININE SERUM 1.17 MG/DL (0.60-1.30); GFR ESTIMATED 49
[2020-03-05 16:07] LABS: BUN/CREATININE RATIO 21
[2020-03-05 16:08] LABS: MAGNESIUM 1.6 MG/DL (1.6-2.4); SALICYLATE < 5.0 MG/DL (5.0-20.0)
[2020-03-05 16:09] LABS: ALANINE AMINOTRANSFERASE 20 U/L (0-55)
[2020-03-05 16:10] LABS: CREATINE KINASE 821 U/L (29-168); LIPASE 22 U/L (8-78)
[2020-03-05 16:13] LABS: PROTHROMBIN TIME PATIENT 13.9 SEC (12.2-14.7)
[2020-03-05 16:17] LABS: ACETAMINOPHEN < 10 UG/ML (10-30); CREATINE KINASE MB 0.8 NG/ML (<6.6)
--- NOTE | 2020-03-05 16:21 | Diagnostic Imaging Report ---
EXAMINATION: Chest 1 view. HISTORY: Confusion. Hallucinations. History of diabetes. COMPARISON: Chest radiograph on 07/27/2019. FINDINGS: The lung volumes are normal. No focal consolidation is seen. No large pleural effusion or pneumothorax is seen. The cardiomediastinal silhouette is prominent. No acute osseous abnormality is seen. IMPRESSION: Prominent cardiac silhouette, which may be partially due to technique. No evidence of pulmonary edema. No focal consolidation. Dictated by: Dictated on workstation # [id number]
--- NOTE | 2020-03-05 16:23 | Diagnostic Imaging Report ---
PROCEDURE: CT head w/o, r/o stroke. TECHNIQUE: Multiple contiguous axial images were obtained through the brain without the use of intravenous contrast. Auto Exposure Controls were utilized during the CT exam to meet ALARA standards for radiation dose reduction. INDICATION: Altered mental status. Hallucinations. COMPARISON: 07/24/2019. FINDINGS: No intracranial hemorrhage, mass effect, hydrocephalus or extra-axial fluid collection. No CT evidence of a territorial infarction. Osseous structures are intact. The paranasal sinuses and mastoids are clear, where seen. IMPRESSION: Negative head CT. Dictated by: Dictated on workstation # [id number]
[2020-03-05 16:29] LABS: TSH (THYROID ANALYZER) 0.41 UIU/ML (0.35-4.94)
[2020-03-05] MEDS ORDERED: inSUlin (REGULAR) HUMAN 1 UNIT/0.01 ML (CHARGE PER UNIT) IV ONE (16:45)
[2020-03-05 16:48] LABS: ABG BASE EXCESS -1.7 MMOL/L (-2.5-2.5); ABG OXYGEN SATURATION 98 % (94-100); ABG PCO2 35 MMHG (35-45); ABG PH 7.42 (7.37-7.43); ABG PO2 100 MMHG (79-93); ABG TCO2 23.1 MMOL/L (21.0-31.0)
[2020-03-05 16:52] LABS: ALLENS TEST YES-POS; INSPIRED O2 RA; PATIENT TEMP 37.1; VENTILATOR NO
[2020-03-05] MEDS ORDERED: MELA10TA2 PO (17:14)
[2020-03-05] MEDS ORDERED: L.AC1CAP6 PO (17:14)
--- NOTE | 2020-03-05 17:30 | NUR ---
ADONAY RAY admitted to room 414-1, with an admitting diagnosis of AMS , on 03/05/20 from AM via , accompanied by ADONAY ELIZABETH introduced to surroundings, call light, bed controls, phone, TV, temperature control, lights, meal times, smoking policy, visitor policy, side rail policy, bathrooms and showers. Patient Rights given to patient in the handbook.
[2020-03-05 17:33] VITALS: BP 148/86
[2020-03-05] MEDS ORDERED: HALOPERIDOL 5 MG/ML (HALDOL) AMP IM PRN (18:15)
--- NOTE | 2020-03-05 19:40 | NUR ---
CALLED DR. GRECO AND REPORTED THAT PATIENT WAS YELLING, PULLED HER IV AND [place] OUT. ALSO INFORMED HIM THAT THERE IS NO INSULIN OR ACCUCHECKS ORDERED FOR HER. RECEIVED ORDER TO ADMINISTER 5MG HALDOL AND 1MG ATIVAN IM NOW, HOLD GLIPIZIDE, ACCUCHECKS ACHS, METFORMIN PER HOME MED, AND INSULINS PER HOME MEDS. 2004-CALLED DR. GRECO AND INFORMED HIM THAT HALDOL AND ATIVAN HAS NOT HELPED AND THAT THERE ARE MULTIPLE STAFF MEMBERS IN HER ROOM ATTEMPTING TO KEEP HER SAFE INCLUDING THE MARSHMALLOW RUNNER. PATIENT'S YELLING WAS AUDIBLE AND THAT SHE WAS BITING AND ATTEMPTING TO HIT STAFF. LET HIM KNOW THAT PATIENT HAD RECEIVED THE FIRST DOSE OF ATIVAN AND HALDOL 10 MIN AGO. RECEIVED ORDER TO WAIT 5 MIN AND THEN TO REPEAT 1MG ATIVAN AND 5MG HALDOL. 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 2024-PATIENT TRANSFERRED TO ICU. 2029-SOFT RESTRAINTS APPLIED AND REPORT GIVEN TO ALAN BALL, ICU.
[2020-03-05] MEDS ORDERED: LORazepam INJ 2 MG/ML (ATIVAN) VIAL IVP PRN (19:45)
[2020-03-05] MEDS ORDERED: HALOPERIDOL 5 MG/ML (HALDOL) AMP IM ONE (20:15)
[2020-03-05] MEDS ORDERED: LORazepam INJ 2 MG/ML (ATIVAN) VIAL IVP ONE (20:15)
[2020-03-05] MEDS ORDERED: KETAMINE HCL 100 MG/ML 5 ML VIAL ONE (20:20)
--- NOTE | 2020-03-05 20:25 | NUR ---
Received pt from 4th floor. Pt accompanied by 2-RN's and security support analyst. [address] Pt will attempt to sit up in bed and mumbles without making sense.
[2020-03-05 20:37] VITALS: BP 189/104
[2020-03-05] MEDS ORDERED: KETAMINE HCL 100 MG/ML 5 ML VIAL IM ONE (20:40)
[2020-03-05 20:41] VITALS: BP 194/107
--- NOTE | 2020-03-05 20:50 | NUR ---
CALLED PAOLA, PATIENT'S , TO INFORM HIM THAT PATIENT BECAME OUT OF CONTROL WAS KICKING AND BITING STAFF, YELLING AND CURSING AND HAD TO BE PHYSICALLY RESTRAINED. ALSO INFORMED HIM THAT PATIENT HAS BEEN TRANSFERRED TO ICU.
[2020-03-05] MEDS ORDERED: NON-FORMULARY MEDICATION 1 EA EA (Metformin HCl (Metformin HCl ER) 1,000 MG) PO SCH (21:00)
[2020-03-05 21:01] VITALS: BP 159/80
[2020-03-05] MEDS: NS IV 1000 ML 1,000 ML IV SCH (21:15)
[2020-03-05] MEDS ORDERED: SCOPOLAMINE 1.5 MG (TRANSDERM-SCOP) PATCH TD ONE (21:15)
[2020-03-05 22:09] VITALS: BP 144/81
--- NOTE | 2020-03-05 22:20 | NUR ---
Pt has been resting intermittently with periods of mumbling. Restraints removed at this time. Will monitor closely.
[2020-03-05 23:56] VITALS: BP 157/96
[2020-03-06] VITALS (13 sets, daily range): BP systolic 117–157; BP diastolic 64–92
[2020-03-06 03:45] LABS: BASOPHILS % (AUTO) 0 % (0-10); EOSINOPHILS # (AUTO) 0.1 10^3/uL (0.0-0.3); EOSINOPHILS % (AUTO) 1 % (0-10); HEMATOCRIT 33 % (35-52); LYMPHOCYTES # (AUTO) 2.8 X 10^3 (1.0-4.0); LYMPHOCYTES % (AUTO) 27 % (12-44); MEAN CORPUSCULAR HEMOGLOBIN 31 PG (25-34); MEAN CORPUSCULAR HGB CONC 33 G/DL (32-36); MEAN CORPUSCULAR VOLUME 93 FL (80-99); MONOCYTES # (AUTO) 0.8 X 10^3 (0.0-1.0); MONOCYTES % (AUTO) 8 % (0-12); NEUTROPHILS # (AUTO) 6.5 X 10^3 (1.8-7.8); NEUTROPHILS % (AUTO) 64 % (42-75); PLATELET COUNT 335 10^3/uL (130-400); RED CELL DISTRIBUTION WIDTH 12.8 % (10.0-14.5); WHITE BLOOD COUNT 10.2 10^3/uL (4.3-11.0)
[2020-03-06 04:08] LABS: POTASSIUM 4.1 MMOL/L (3.6-5.0)
[2020-03-06 04:09] LABS: CALCIUM 8.7 MG/DL (8.5-10.1)
[2020-03-06 04:10] LABS: TOTAL PROTEIN 6.9 GM/DL (6.4-8.2)
[2020-03-06 04:12] LABS: BILIRUBIN,TOTAL 0.5 MG/DL (0.1-1.0)
[2020-03-06 04:13] LABS: PHOSPHORUS 3.2 MG/DL (2.3-4.7)
[2020-03-06 04:14] LABS: CREATININE SERUM 1.08 MG/DL (0.60-1.30)
[2020-03-06 04:17] LABS: MAGNESIUM 1.7 MG/DL (1.6-2.4)
[2020-03-06] MEDS: NS IV 1000 ML 1,000 ML IV SCH ×3 (04:54→21:30)
[2020-03-06] MEDS ORDERED: MAGNESIUM 1 GM/100 ML IVPB 100 ML IV SCH (06:00)
[2020-03-06] MEDS ORDERED: POTASSIUM CL 10MEQ/50ML IVPB 50 ML IV SCH (06:00)
[2020-03-06] MEDS ORDERED: KCL 20 MEQ TAB (K-DUR) PO SCH (06:00)
[2020-03-06] MEDS: inSUlin ASPART (NovoLOG) 1 UNIT/0.01 ML (CHARGE PER UNIT) SQ SCH ×3 (06:46→17:29)
[2020-03-06] MEDS: metFORMIN XR 500 MG (GLUCOPHAGE XR) TAB PO SCH ×2 (07:41→17:29)
[2020-03-06] MEDS: MAGNESIUM 1 GM/100 ML IVPB 100 ML IV SCH (07:41)
--- NOTE | 2020-03-06 10:00 | NUR ---
Called et spoke with pt et updated on status
--- NOTE | 2020-03-06 13:02 | History & Physical ---
HPI History of Present Illness: 50 yo female admitted with altered mental status. She has had periods of alertness, but at time of my exam, she awakens and speaks normally but her answers are not all appropriate or logical. She states she is in the hospital because "someone was making some movies and her was going to stop them". She is oriented to self only. Per ER notes, her states this has happened before when her blood sugar was high. He told nursing that she was prescribed Haldol after her hospitalization in Sep, and she did well while on it, but when told she needed to see Psychiatry to get refill, she refused and has been off of it. Her only previous Psychiatric diagnosis is depression and anxiety. Source: patient Exam Limitations: clinical condition Date seen by provider: March 06, 2020 Time Seen by Provider: 09:50 Attending Physician Eri Anna MD PCP [facility] Consult Date of Admission March 05, 2020 at 16:37 Home Medications Home Medications Reviewed patient Home Medication Reconciliation performed by pharmacy medication reconciliations phone technician and/or nursing. Patients Allergies have been reviewed. Allergies Coded Allergies: No Known Drug Allergies (Unverified , 06/29/11) [id number] Hx Patient Social History Smoking Status: Unknown if Ever Smoked 2nd Hand Smoke Exposure: No Recent Foreign Travel: No Contact w/other who traveled: No Recent Hopitalizations: No Recent Infectious Disease Expo: No Immunizations Up To Date Tetanus Booster (TDap): Unknown Past Medical History PMHx: DMII Family Medical History Family Medical Hx Unable to obtain Review of Systems ([facility]) Constitutional: other (unable to obtain) Reviewed Test Results Reviewed Test Results Lab Laboratory Tests Test 03/05/20 15:12 03/05/20 15:25 03/05/20 15:41 03/05/20 16:20 Range/Units Glucometer 325 H 70-110 MG/DL Urine Color YELLOW Urine Clarity CLEAR Urine pH 6.0 5-9 Urine Specific [place] 1.025 H 1.016-1.022 Urine Protein 2+ H NEGATIVE Urine Glucose (UA) 1+ H NEGATIVE Urine Ketones 1+ H NEGATIVE Urine Nitrite NEGATIVE NEGATIVE Urine Bilirubin NEGATIVE NEGATIVE Urine Urobilinogen 0.2 < = 1.0 MG/DL Urine Leukocyte Esterase NEGATIVE NEGATIVE Urine RBC (Auto) TRACE-L NEGATIVE Urine RBC 0-2 /HPF Urine WBC 2-5 /HPF Urine Crystals NONE /LPF Urine Bacteria TRACE /HPF Urine Casts PRESENT /LPF Urine Hyaline Casts 2-5 H /LPF Urine Mucus NEGATIVE /LPF Urine Culture Indicated NO Urine Opiates Screen NEGATIVE NEGATIVE Urine Oxycodone Screen NEGATIVE NEGATIVE Urine Methadone Screen NEGATIVE NEGATIVE Urine Propoxyphene Screen NEGATIVE NEGATIVE Urine Barbiturates Screen NEGATIVE NEGATIVE Ur Tricyclic Antidepressants Screen NEGATIVE NEGATIVE Urine Phencyclidine Screen NEGATIVE NEGATIVE Urine Amphetamines Screen NEGATIVE NEGATIVE Urine Methamphetamines Screen NEGATIVE NEGATIVE Urine Benzodiazepines Screen NEGATIVE NEGATIVE Urine Cocaine Screen NEGATIVE NEGATIVE Urine Cannabinoids Screen NEGATIVE NEGATIVE White Blood Count 8.7 4.3-11.0 10^3/uL Red Blood Count 3.44 L 4.35-5.85 10^6/uL Hemoglobin 10.7 L 11.5-16.0 G/DL Hematocrit 32 L 35-52 % Mean Corpuscular Volume 92 80-99 FL Mean Corpuscular Hemoglobin 31 25-34 PG Mean Corpuscular Hemoglobin Concent 34 32-36 G/DL Red Cell Distribution Width 12.5 10.0-14.5 % Platelet Count 335 130-400 10^3/uL Mean Platelet Volume 9.5 7.4-10.4 FL Neutrophils (%) (Auto) 76 H 42-75 % Lymphocytes (%) (Auto) 14 12-44 % Monocytes (%) (Auto) 9 0-12 % Eosinophils (%) (Auto) 0 0-10 % Basophils (%) (Auto) 0 0-10 % Neutrophils # (Auto) 6.7 1.8-7.8 X 10^3 Lymphocytes # (Auto) 1.3 1.0-4.0 X 10^3 Monocytes # (Auto) 0.8 0.0-1.0 X 10^3 Eosinophils # (Auto) 0.0 0.0-0.3 10^3/uL Basophils # (Auto) 0.0 0.0-0.1 10^3/uL Prothrombin Time 13.9 12.2-14.7 SEC INR Comment 1.0 0.8-1.4 Activated Partial Thromboplast Time 28 24-35 SEC Sodium Level 137 135-145 MMOL/L Potassium Level 4.2 3.6-5.0 MMOL/L Chloride Level 106 98-107 MMOL/L Carbon Dioxide Level 19 L 21-32 MMOL/L Anion Gap 12 5-14 MMOL/L Blood Urea Nitrogen 24 H 7-18 MG/DL Creatinine 1.17 0.60-1.30 MG/DL Estimat Glomerular Filtration Rate 49 BUN/Creatinine Ratio 21 Glucose Level 306 H 70-105 MG/DL Lactic Acid Level 0.83 0.50-2.00 MMOL/L Calcium Level 9.1 8.5-10.1 MG/DL Corrected Calcium 9.1 8.5-10.1 MG/DL Magnesium Level 1.6 1.6-2.4 MG/DL Total Bilirubin 0.5 0.1-1.0 MG/DL Aspartate Amino Transf (AST/SGOT) 22 5-34 U/L Alanine Aminotransferase (ALT/SGPT) 20 0-55 U/L Alkaline Phosphatase 82 40-136 U/L Total Creatine Kinase 821 H 29-168 U/L Creatine Kinase MB 0.8 <6.6 NG/ML Myoglobin 270.2 H 10.0-92.0 NG/ML Total Protein 6.1 L 6.4-8.2 GM/DL Albumin 4.0 3.2-4.5 GM/DL Amylase Level 25 25-125 U/L Lipase 22 8-78 U/L TSH [place] Testing 0.41 0.35-4.94 UIU/ML Salicylates Level < 5.0 L 5.0-20.0 MG/DL Acetaminophen Level < 10 L 10-30 UG/ML Serum Alcohol < 10 <10 MG/DL Serum Test, Qualitative NEGATIVE NEGATIVE Test 03/05/20 16:45 03/05/20 17:15 03/05/20 21:21 03/06/20 03:15 Range/Units Blood Gas Puncture Site R RAD Blood Gas Patient Temperature 37.1 Arterial Blood pH 7.42 7.37-7.43 Arterial Blood Partial Pressure CO2 35 35-45 MMHG Arterial Blood Partial Pressure O2 100 H 79-93 MMHG Arterial Blood HCO3 22 L 23-27 MMOL/L Arterial Blood Total CO2 23.1 21.0-31.0 MMOL/L Arterial Blood Oxygen Saturation 98 94-100 % Arterial Blood Base Excess -1.7 -2.5-2.5 MMOL/L Darvin Test YES-POS Blood Gas Ventilator Setting NO Blood Gas Inspired Oxygen RA Glucometer 204 H 226 H 70-110 MG/DL White Blood Count 10.2 4.3-11.0 10^3/uL Red Blood Count 3.54 L 4.35-5.85 10^6/uL Hemoglobin 11.0 L 11.5-16.0 G/DL Hematocrit 33 L 35-52 % Mean Corpuscular Volume 93 80-99 FL Mean Corpuscular Hemoglobin 31 25-34 PG Mean Corpuscular Hemoglobin Concent 33 32-36 G/DL Red Cell Distribution Width 12.8 10.0-14.5 % Platelet Count 335 130-400 10^3/uL Mean Platelet Volume 10.0 7.4-10.4 FL Neutrophils (%) (Auto) 64 42-75 % Lymphocytes (%) (Auto) 27 12-44 % Monocytes (%) (Auto) 8 0-12 % Eosinophils (%) (Auto) 1 0-10 % Basophils (%) (Auto) 0 0-10 % Neutrophils # (Auto) 6.5 1.8-7.8 X 10^3 Lymphocytes # (Auto) 2.8 1.0-4.0 X 10^3 Monocytes # (Auto) 0.8 0.0-1.0 X 10^3 Eosinophils # (Auto) 0.1 0.0-0.3 10^3/uL Basophils # (Auto) 0.0 0.0-0.1 10^3/uL Sodium Level 141 135-145 MMOL/L Potassium Level 4.1 3.6-5.0 MMOL/L Chloride Level 109 H 98-107 MMOL/L Carbon Dioxide Level 20 L 21-32 MMOL/L Anion Gap 12 5-14 MMOL/L Blood Urea Nitrogen 21 H 7-18 MG/DL Creatinine 1.08 0.60-1.30 MG/DL Estimat Glomerular Filtration Rate 54 BUN/Creatinine Ratio 19 Glucose Level 182 H 70-105 MG/DL Calcium Level 8.7 8.5-10.1 MG/DL Corrected Calcium 8.7 8.5-10.1 MG/DL Phosphorus Level 3.2 2.3-4.7 MG/DL Magnesium Level 1.7 1.6-2.4 MG/DL Total Bilirubin 0.5 0.1-1.0 MG/DL Aspartate Amino Transf (AST/SGOT) 30 5-34 U/L Alanine Aminotransferase (ALT/SGPT) 20 0-55 U/L Alkaline Phosphatase 92 40-136 U/L Total Protein 6.9 6.4-8.2 GM/DL Albumin 4.0 3.2-4.5 GM/DL Test 03/06/20 10:40 Range/Units Glucometer 132 H 70-110 MG/DL Radiology CT head 03/05 normal Physical Exam-([facility]) Physical Exam Vital Signs VS - Last 72 Hours, by Label 03/05/20 03/05/20 03/05/20 03/05/20 15:00 17:22 17:31 17:33 Temp 37.1 36.8 Pulse 105 100 97 Resp 16 16 16 B/P (MAP) 162/94 (116) 156/81 148/86 Pulse Ox 95 98 99 O2 Delivery Room Air Room Air Room Air Room Air 03/05/20 03/05/20 03/05/20 03/05/20 20:09 20:35 20:37 20:41 Temp 36.9 Pulse 120 121 128 137 Resp 23 26 B/P (MAP) 189/104 (132) 194/107 (136) Pulse Ox 98 95 95 O2 Delivery OxyMask OxyMask O2 Flow Rate 3.00 3.00 03/05/20 03/05/20 03/05/20 03/06/20 21:01 22:09 23:56 00:00 Pulse 112 101 114 Resp 18 19 11 B/P (MAP) 159/80 (106) 144/81 (102) 157/96 (116) Pulse Ox 99 99 98 96 O2 Delivery OxyMask OxyMask OxyMask Room Air O2 Flow Rate 3.00 3.00 3.00 03/06/20 03/06/20 03/06/20 03/06/20 01:00 01:00 01:39 02:40 Pulse 88 88 105 112 Resp 18 18 11 B/P (MAP) 157/82 (107) 150/82 (104) Pulse Ox 94 97 98 O2 Delivery OxyMask OxyMask OxyMask O2 Flow Rate 3.00 3.00 3.00 03/06/20 03/06/20 03/06/20 03/06/20 03:10 04:00 04:40 05:40 Pulse 98 90 80 Resp 25 19 14 B/P (MAP) 138/84 (102) 143/82 (102) Pulse Ox 96 96 94 96 O2 Delivery OxyMask Room Air OxyMask OxyMask O2 Flow Rate 2.00 2.00 2.00 03/06/20 03/06/20 03/06/20 03/06/20 06:40 07:00 07:00 08:00 Pulse 82 108 99 99 Resp 19 19 19 B/P (MAP) 133/75 (94) 131/76 (94) Pulse Ox 95 97 97 O2 Delivery OxyMask OxyMask OxyMask O2 Flow Rate 2.00 2.00 2.00 03/06/20 03/06/20 03/06/20 03/06/20 08:00 08:54 09:00 10:00 Temp 36.8 Pulse 85 83 Resp 13 17 B/P (MAP) 146/75 (98) 120/68 (85) Pulse Ox 96 96 96 O2 Delivery Room Air OxyMask OxyMask O2 Flow Rate 2.00 2.00 03/06/20 03/06/20 03/06/20 03/06/20 11:00 11:27 12:00 12:00 Temp 36.6 Pulse 95 89 Resp 13 21 B/P (MAP) 134/71 (92) 125/82 (96) Pulse Ox 99 96 98 O2 Delivery OxyMask Room Air OxyMask O2 Flow Rate 2.00 2.00 03/06/20 12:31 Pulse 108 Capillary Refill : Less Than 3 Seconds General Appearance: WD/WN, no apparent distress Eyes: Bilateral Eye PERRL, Bilateral Eye EOMI Respiratory: lungs clear, normal breath sounds Cardiovascular: regular rate, rhythm, no murmur Gastrointestinal: normal bowel sounds, non tender, soft Extremities: no pedal edema Neurologic/Psychiatric: relationship executive II-XII nml as tested, alert; No abnormal cerebellar tests, No motor weakness; other (disoriented x 2, answers tangential and unrelated to questions) Skin: normal color, warm/dry Assessment/Plan Assessment/Plan Admission Status: Observation (1) Acute psychosis Status: Acute Assessment & Plan: Unclear etiology, CT head okay, UDS neg, TSH nml. Has had this occur in past, suspect may be underlying Psychiatric diagnosis. Improved somewhat with ativan, haldol and ketamine yesterday, but remains confused this am. Continue Haldol and monitor. (2) IDDM (insulin dependent diabetes mellitus) Status: Acute Assessment & Plan: Resumed home insulin (3) Anemia Status: Chronic Assessment & Plan: Normocytic anemia, present since Jul 2019, suspect chronic disease, but no previous work-up noted. Check iron studies and peripheral smear. (4) Elevated CK Status: Chronic Assessment & Plan: IVF, recheck, hold statin. Was elevated above this in the fall, had come down some, but no normal documented. (5) DVT prophylaxis Status: Acute Assessment & Plan: Enoxaparin Clinical Quality Measures DVT/VTE Risk/Contraindication: Risk Factor Score Per Nursin RFS Level Per Nursing on Admit: 2=Moderate Contraindications-Pharm: Other *list below* Contraindications-Mechi: Pt at low risk Other: PSYCHOSIS ERI ANNA MD March 06, 2020 13:02
[2020-03-06] MEDS ORDERED: ACETAMINOPHEN 500 MG TAB (TYLENOL) PO PRN (13:15)
[2020-03-06] MEDS ORDERED: CALCIUM CARBONATE 500 MG (TUMS) TAB.CHEW PO PRN (13:15)
[2020-03-06] MEDS: ENOXAPARIN 40 MG/0.4 ML (LOVENOX) SYR SC SCH (13:47)
--- NOTE | 2020-03-06 16:45 | NUR ---
Pt son called et spoke with this RN. Stated he and his sister do not peak with their parents often and described a strained relationship but the pt showed up to his house , which the son reported as being abnormal. The son stated the pt wanted a hug. The son described the pt as having a lot of "strange and delusional thoughts in the past and some seemed paranoid". He states sometimes her thoughts reference the police and not being able to release some type of records but the son is unsure what she means when she talks like this. He states he has noticed her facebook posts lately are "weird". The son states in August 2019 the patient was at a behavioral health unit in [facility] for several days and states at that time the patient told the son she was suicidal. The son was worried about pt but does not wish to speak with her.
--- NOTE | 2020-03-06 22:12 | NUR ---
PT A/O AT THIS TIME, ABLE TO TELL ME WHERE SHE IS BUT DOESN'T REMEMBER WHY SHE IS HERE. THE LAST THING SHE REMEMBERS IS SITTING ON THE COUCH EATING CHICKEN VAN'S WITH HER THEN SHE WOKE UP IN THE HOSPITAL
[2020-03-07 03:35] LABS: BASOPHILS % (AUTO) 0 % (0-10); EOSINOPHILS # (AUTO) 0.2 10^3/uL (0.0-0.3); EOSINOPHILS % (AUTO) 2 % (0-10); HEMATOCRIT 30 % (35-52); HEMOGLOBIN 9.8 G/DL (11.5-16.0); LYMPHOCYTES # (AUTO) 2.9 X 10^3 (1.0-4.0); LYMPHOCYTES % (AUTO) 37 % (12-44); MEAN CORPUSCULAR HEMOGLOBIN 31 PG (25-34); MEAN CORPUSCULAR HGB CONC 33 G/DL (32-36); MEAN CORPUSCULAR VOLUME 94 FL (80-99); MEAN PLATELET VOLUME 9.9 FL (7.4-10.4); MONOCYTES # (AUTO) 0.7 X 10^3 (0.0-1.0); MONOCYTES % (AUTO) 9 % (0-12); NEUTROPHILS # (AUTO) 4.1 X 10^3 (1.8-7.8); NEUTROPHILS % (AUTO) 53 % (42-75); PLATELET COUNT 300 10^3/uL (130-400); RED CELL DISTRIBUTION WIDTH 12.5 % (10.0-14.5); WHITE BLOOD COUNT 7.8 10^3/uL (4.3-11.0)
[2020-03-07 03:47] LABS: CHLORIDE 112 MMOL/L (98-107); POTASSIUM 3.8 MMOL/L (3.6-5.0); SODIUM 143 MMOL/L (135-145)
[2020-03-07 03:49] LABS: GLUCOSE 132 MG/DL (70-105)
[2020-03-07 03:50] LABS: CARBON DIOXIDE 20 MMOL/L (21-32)
[2020-03-07 03:52] LABS: CREATININE SERUM 0.93 MG/DL (0.60-1.30); GFR ESTIMATED > 60; PHOSPHORUS 2.7 MG/DL (2.3-4.7)
[2020-03-07 03:53] LABS: BUN/CREATININE RATIO 14
[2020-03-07 03:56] LABS: CREATINE KINASE 571 U/L (29-168)
[2020-03-07 05:33] VITALS: BP 122/82
[2020-03-07] MEDS: inSUlin ASPART (NovoLOG) 1 UNIT/0.01 ML (CHARGE PER UNIT) SQ SCH ×2 (05:38→12:42)
[2020-03-07] MEDS ORDERED: glipiZIDE 5 MG (GLUCOTROL) TAB PO SCH (06:30)
[2020-03-07] MEDS: NS IV 1000 ML 1,000 ML IV SCH ×2 (06:41→13:55)
[2020-03-07] MEDS: metFORMIN XR 500 MG (GLUCOPHAGE XR) TAB PO SCH (06:41)
[2020-03-07 07:00] VITALS: BP 136/88
[2020-03-07] MEDS ORDERED: FLUTICASONE NASAL SPRAY (FLONASE) 16 GM BTL NS PRN (09:00)
[2020-03-07] MEDS ORDERED: lisINopril 10 MG (PRINIVIL) TABLET PO SCH (09:00)
--- NOTE | 2020-03-07 09:30 | NUR ---
Patient transferred to 410 per W/C accompanied by ICU staff. Patient and family notified and understand transfer. Personal belongings with patient. Report given to THIS RN FROM DIRECTOR DIGITAL SALES.
--- NOTE | 2020-03-07 10:33 | Discharge Summary ---
Discharge Summary Hospital Course Problems/Diagnosis: (1) Acute psychosis Status: Acute Assessment & Plan: Unclear etiology, CT head okay, UDS neg, TSH nml. Has had this occur in the past, suspect may be underlying Psychiatric diagnosis. Improved somewhat with ativan, haldol and ketamine yesterday, but remains confused this am. Continue Haldol and monitor. 03/07 mental status normal, but she doesn't recall what happened in the interim. Etiology remains unclear, recommend considering Psych and Neuro consults outpatient, MRI if not done previously. (2) IDDM (insulin dependent diabetes mellitus) Status: Acute Assessment & Plan: Resumed home insulin (3) Anemia Status: Chronic Assessment & Plan: Normocytic anemia, present since Jul 2019, suspect chronic disease, but no previous work-up noted. Recommend outpatient work-up. (4) Elevated CK Status: Chronic Assessment & Plan: IVF, recheck, hold statin. Was elevated above this in the fall, had come down some, but no normal documented. 03/07 trended down but still elevated, stopped statin on d/c, recommend recheck and follow to resolution. Hospital Course Date of Admission: March 05, 2020 at 16:37 Admission Diagnosis : Family Physician/Provider: [place] [place] Date of Discharge: 03/07/20 Discharge Diagnosis: See problem list Hospital Course: See problem list Labs and Pending Lab Test: Laboratory Tests 03/06/20 10:40: Glucometer 132H 03/06/20 16:20: Glucometer 211H 03/06/20 21:23: Glucometer 206H 03/07/20 03:20: White Blood Count 7.8, Red Blood Count 3.17L, Hemoglobin 9.8L, Hematocrit 30L, Mean Corpuscular Volume 94, Mean Corpuscular Hemoglobin 31, Mean Corpuscular Hemoglobin Concent 33, Red Cell Distribution Width 12.5, Platelet Count 300, Mean Platelet Volume 9.9, Neutrophils (%) (Auto) 53, Lymphocytes (%) (Auto) 37, Monocytes (%) (Auto) 9, Eosinophils (%) (Auto) 2, Basophils (%) (Auto) 0, Neutrophils # (Auto) 4.1, Lymphocytes # (Auto) 2.9, Monocytes # (Auto) 0.7, Eosinophils # (Auto) 0.2, Basophils # (Auto) 0.0, Sodium Level 143, Potassium Level 3.8, Chloride Level 112H, Carbon Dioxide Level 20L, Anion Gap 11, Blood Urea Nitrogen 13, Creatinine 0.93, Estimat Glomerular Filtration Rate > 60, BUN/Creatinine Ratio 14, Glucose Level 132H, Calcium Level 8.0L, Phosphorus Level 2.7, Magnesium Level 2.0, Total Creatine Kinase 571H Microbiology 03/06/20 MRSA Screen - Final, Complete MRSA not isolated 03/05/20 Blood Culture - Preliminary, Resulted No growth Home Meds Active Reported Melatonin 10 Mg Tablet 10 Mg PO HS PRN Probiotic (L.acidoph & Paracasei,B.lactis) 1 Each Capsule 1 Each PO DAILY Tums Smoothies (Calcium Carbonate) 300 Mg Tab.chew 600 Mg PO TID PRN Flonase Allergy Relief (Fluticasone Propionate) 9.9 Ml [place].susp 1 [place] NS BID PRN Acetaminophen 500 Mg Tablet 1,000 Mg PO Q8H PRN Atorvastatin Calcium 40 Mg Tablet 40 Mg PO HS Levemir (Insulin Determir) 1,000 Units/10 Ml Soln 15 Units SQ BID LAST FILLED THRU PALS ON 03-27-2019 FOR A 90 DAY SUPPLY Novolog (Insulin Aspart) 100 Unit/1 Ml Susp 15 Units SQ AC LAST FILLED THRU PALS ON 03-27-2019 FOR A 90 DAY SUPPLY Lisinopril 10 Mg Tablet 5 Mg PO DAILY Potassium Gluconate 595 MG (Potassium Gluconate) 99 Mg Tablet 99 Mg PO DAILY Metformin HCl ER (Metformin HCl) 500 Mg [id number] 1,000 Mg PO BID Flaco Mag Zinc + D3 Tablet (Calcium Carb/D3/Magnesium/Zinc) 1 Each Tablet 1 Each PO DAILY Glipizide 10 Mg Tablet 10 Mg PO DAILY Multi-Vitamin Daily (Multivitamin) 1 Each Tablet 1 Each PO DAILY Trulicity (Dulaglutide) 0.75 Mg/0.5 Ml Pen.injctr 0.75 Mg SQ WEEK Assessment/Pt DC Instructions Follow up with Jesus Bower at [facility] on 03/14 at 1 pm. Discharge Diet: ADA Diet Activity as Tolerated: Yes (No driving until underlying condition further worked up) Orders-Post D/C & Referrals Pneu Vac Indicated: Yes Discharge Physical Examination Allergies: Coded Allergies: No Known Drug Allergies (Unverified , 06/29/11) General Appearance: No Apparent Distress, WD/WN Respiratory: Lungs Clear, Normal Breath Sounds Cardiovascular: Regular Rate, Rhythm, No Murmur Neurologic/Psychiatric: Alert, Oriented x3, Normal Mood/Affect Clinical Quality Measures DVT/VTE Risk/Contraindication: Risk Factor Score Per Nursin RFS Level Per Nursing on Admit: 2=Moderate Contraindications-Pharm: Other *list below* Contraindications-Mechi: Pt at low risk Other: PSYCHOSIS ERI VEGAS MD March 07, 2020 10:32
--- NOTE | 2020-03-07 12:13 | NUR ---
CM/SS: Visited with pt as to plan for discharge Plan: Pt will return home with follow up appointments to medical and mental health Summary: Pt is able to give this worker information as to her current stay here. Pt shares she is unclear as to her behavior as to her seeing things, and saying different things that did not make sense. Pt is alert, oriented, person, place, time, location. Pt blames her behavior on her blood sugar being elevated. Pt reports feeling better. While talking to pt she reports having been on an antidepressant and Paxil and stopped taking it. She reports some history of anxiety and depression, all reportedly managed and controlled. Pt is encouraged to keep track of her blood sugars and moods in a journals. Pt talked about waking up blind and now she is able to see. 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 It is unclear pts history related to mental health and compliance. Upon review of the pt's medical record, it indicates that pt had taken psych medications in the past and that she just stop talking them. This worker revisits pt. Pt is asked specific questions about her mental health. Pt reports that she was at [facility] recently and she did not do any follow up from a mental health standpoint, ater her stay there. She is encouraged to do so. She reports having thoughts about being alone and from her family. She is encouraged that she is not alone in struggling with her kids leaving home and being by herself. She mentioned this as a issue with her. She is encouraged to meet with someone that can help her sort though all of those feelings. She is open to have an appointment and knows that it will be at the same building as her medical follow up. Her email address is obtained [email or web address] and is given to [facility] for follow up based on appointment. Call to Akila Alanis - [facility] - Mental Health Appointment is March 14 at 3:30pm. Information given to the primary RN to give to pt for follow up after she is discharged.
[2020-03-07] MEDS: ENOXAPARIN 40 MG/0.4 ML (LOVENOX) SYR SC SCH (13:15)
[2020-03-07 13:29] VITALS: BP 136/88
--- NOTE | 2020-03-07 13:57 | NUR ---
RD ASSESSMENT PMHx: DM PT INTERACTION: Pt was awake and pleasant during nutrition assessment. Pt states current appetite is "pretty good." Note avg PO intake 100% x1d, per chart review. Pt states trying to follow the ketogenic diet at home, and has no issues with chewing/swallowing food. Pt states no recent issues with nausea, vomiting, constipation, or diarrhea, and that her last BM was 03/07. Note pt not currently on bowel regimen per chart review. Pt states wt loss of 60# since 04/2019. Note recent 7# wt loss x6mon, per chart review. Pt states current DM management is "pretty good. My last A1c was 5.8, taken in 11/2019." Note unable to determine recent HbA1c, per chart review. ABNORMAL NUTRITION-RELATED LAB VALUES LOW: Ca 8.0 HIGH: Cl 112; glu 132 Est. kcal needs: 5417-1594 kcal | 15-18 kcal/kg Est. Pro needs: 86-108 g Pro | 0.8-1.0 g Pro/kg PES STATEMENT: Food- and nutrition-related knowledge deficit (NB-1.1) related to lack of prior nutrition-related education (ketogenic diet) as evidenced by verbalizes inaccurate information (ketogenic diet) INTERVENTION: Continue with current diet order of CHO 45g/m 0snack diet. Discussed and provided dietary education on DM management. Discussed ketogenic diet and its effects on DM management. Discussed and provided handout on CHO counting and discussed CHO amounts and serving sizes for common foods in pt's diet. Pt verbalized understanding of information provided and appears confident to follow suggestions at discharge. Will continue to follow and reassess as pt needs, intake, and status change. MONITOR/EVALUATE: PO Intake; Plan of Care; Hydration Status; Weight Status; Lab Values Edilma Jose, MS, RD, LD
== END 2020-03-07 14:12 | disposition home or self-care (01) ==
LOC: EDUNIT# 15:00 → ER 15:01 → 4TH 16:37 → ICU 20:23 → 4TH 03-07 09:30
PROVIDERS: ADMIT Internal Medicine; ATTEND Family Medicine
DX: F23 Brief psychotic disorder (principal); E11.9 Type 2 diabetes mellitus without complications; D64.9 Anemia, unspecified; E86.0 Dehydration; E78.00 Pure hypercholesterolemia, unspecified; R74.8 Abnormal levels of other serum enzymes; I82.409 Acute embolism and thrombosis of unspecified deep veins of unspecified lower extremity; R41.0 Disorientation, unspecified; F41.9 Anxiety disorder, unspecified; F32.9 Major depressive disorder, single episode, unspecified; Z79.4 Long term (current) use of insulin; Z79.899 Other long term (current) drug therapy; Z90.710 Acquired absence of both cervix and uterus
CPT/HCPCS: 36415; 51702; 70450; 71045; 80048; 80053; 80306; 80320; 80329; 81000; 82150; 82550; 82553; 82805; 82962; 83605; 83690; 83735; 83874; 84100; 84443; 84703; 85025; 85610; 85730; 87040; 87081; 93005; 93041; G0378

== ENCOUNTER 2021-03-20 16:48 | Observation (INO) | payer SELFPAY ==
[~2021-03-20] VITALS: Ht 167.7 cm; Wt 106.8 kg
[~2021-03-20 16:48] MED LIST changes: +L.AC1CAP6 PO; -LISI10TA2 PO; +LISI10TA25 PO; +MELA10TA2 PO; -METF-760 PO; +METF-845 PO
[2021-03-20 17:09] LABS: BASOPHILS % (AUTO) 0 % (0-10); EOSINOPHILS # (AUTO) 0.1 10^3/uL (0.0-0.3); EOSINOPHILS % (AUTO) 0 % (0-10); HEMATOCRIT 38 % (35-52); LYMPHOCYTES # (AUTO) 2.2 10^3/uL (1.0-4.0); LYMPHOCYTES % (AUTO) 15 % (12-44); MEAN CORPUSCULAR HEMOGLOBIN 31 pg (25-34); MEAN CORPUSCULAR HGB CONC 35 g/dL (32-36); MEAN CORPUSCULAR VOLUME 90 fL (80-99); MEAN PLATELET VOLUME 9.6 fL (9.0-12.2); MONOCYTES # (AUTO) 1.2 10^3/uL (0.0-1.0); MONOCYTES % (AUTO) 8 % (0-12); NEUTROPHILS # (AUTO) 11.6 10^3/uL (1.8-7.8); NEUTROPHILS % (AUTO) 76 % (42-75); PLATELET COUNT 410 10^3/uL (130-400); WHITE BLOOD COUNT 15.2 10^3/uL (4.3-11.0)
--- NOTE | 2021-03-20 17:11 | ED General ---
General Chief Complaint: Altered Mental Status Stated Complaint: CONFUSION Source of Information: EMS Exam Limitations: Other (psychosis) History of Present Illness Date Seen by Provider: Mar 20, 2021 Time Seen by Provider: 16:50 Initial Comments Patient is a 51-year-old female brought to the emergency department by EMS with a chief complaint of altered mental status. History is obtained from the ambulance crew as the was not immediately available for further history. I also reviewed past medical charts for history. 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 Reportedly he came home today and found his lying on their bedroom floor acting bizarre. He checked her blood sugar at home it was 270. He did give her 5 units of insulin prior to EMS transport. EMS re ports that she was pulling off monitoring equipment and removed her shirt in the ambulance exposing herself. She is answering questions with head nods and will say yes and no however I believe that these are inconsistent and not reliable. She is randomly saying words that she is hearing staff members around her say. She is asking questions that are irrelevant to the circumstance. She seems delirious but alert. No external/outward signs of trauma. When asked if the patient is having any pain she says yes but moments later would say no to the same questions. She will follow commands and raise her legs off the bed when asked. She does not seem to be hallucinating. EMS did state that there were multiple Metformin tablets strewn about the kitchen according to the . Review of the medical record shows that the patient was admitted with a similar complaint in February 2020. She came in delirious and acting inappropriately. Patient had an extensive work-up including CT scan of the brain and no acute abnormalities were found. She was evidently given Ativan, Haldol and ketamine during that hospitalization. It looks like it took her 24 to 48 hours to clear mentally. Patient has a history of hypertension, diabetes, anxiety and depression according to the medical record Review of systems is unobtainable secondary to the patient's altered mental status at this time. Timing/Duration: Other (unknown time of onset) Severity: Severe Allergies and Home Medications Allergies Coded Allergies: No Known Drug Allergies (Unverified , 06/29/11) Home Medications Acetaminophen 500 Mg Tablet, 1,000 MG PO Q8H PRN for PAIN-MILD, (Reported) Calcium Carb/D3/Magnesium/Zinc 1 Each Tablet, 1 EACH PO DAILY, (Reported) Calcium Carbonate 300 Mg Tab.chew, 600 MG PO TID PRN for HEARTBURN, (Reported) Dulaglutide 0.75 Mg/0.5 Ml Pen.injctr, 0.75 MG SQ WEEK, (Reported) Fluticasone Propionate 9.9 Ml [place].susp, 1 SPRAY NS BID PRN for CONGESTION, (Reported) Glipizide 10 Mg Tablet, 10 MG PO DAILY, (Reported) Insulin Aspart 100 Unit/1 Ml Susp, 15 UNITS SQ AC, (Reported) LAST FILLED THRU PALS ON 03-27-2019 FOR A 90 DAY SUPPLY Insulin Determir 1,000 Units/10 Ml Soln, 15 UNITS SQ BID, (Reported) LAST FILLED THRU PALS ON 03-27-2019 FOR A 90 DAY SUPPLY L.acidoph & Paracasei,B.lactis 1 Each Capsule, 1 EACH PO DAILY, (Reported) Lisinopril 10 Mg Tablet, 5 MG PO DAILY, (Reported) Melatonin 10 Mg Tablet, 10 MG PO HS PRN for SLEEP, (Reported) Metformin HCl 500 Mg [id number], 1,000 MG PO BID, (Reported) Multivitamin 1 Each Tablet, 1 EACH PO DAILY, (Reported) Potassium Gluconate 99 Mg Tablet, 99 MG PO DAILY, (Reported) Patient Home Medication List Home Medication List Reviewed: Yes Review of Systems Review of Systems Constitutional: see HPI Review of systems unobtainable secondary to the patient's altered mental status Past Fvltsue-Ddfaqa-Twtyco Hx Patient Social History 2nd Hand Smoke Exposure: No Recent Hopitalizations: No Immunizations Up To Date Tetanus Booster (TDap): Unknown PED Vaccines UTD: Yes Seasonal Allergies Seasonal Allergies: No Past Medical History Surgeries: Yes Gallbladder, Hysterectomy Respiratory: No Cardiac: Yes High Cholesterol, Hypertension 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 oz. kg; 33.38 BMI Method: General Appearance: No Apparent Distress, WD/WN Eyes: Bilateral Eye Normal Inspection, Bilateral Eye PERRL, Bilateral Eye EOMI HEENT: PERRL/EOMI Neck: Normal Inspection Respiratory: Lungs Clear, Normal Breath Sounds, No Accessory Muscle Use, No Respiratory Distress Cardiovascular: Regular Rate, Rhythm Gastrointestinal: Soft, Other (Patient states "ow" with palpation of the abdomen specifically in the lower quadrants of the abdomen; abdomen is nondistended, normal bowel sounds) Extremity: Normal Inspection, Normal Range of Motion, No Pedal Edema Neurologic/Psychiatric: Alert, No Motor/Sensory Deficits, Normal Mood/Affect Skin: Normal Color, Warm/Dry, Other (No rashes) Progress/Results/Core Measures Suspected Sepsis SIRS Temperature: Pulse: Respiratory Rate: Laboratory Tests 03/20/21 17:03: White Blood Count 15.2H Blood Pressure / Mean: Laboratory Tests 03/20/21 17:03: Creatinine 1.99H, Platelet Count 410H, Total Bilirubin 0.5 Results/Orders Lab Results Laboratory Tests Test 03/20/21 17:03 03/20/21 17:14 03/20/21 17:45 Range/Units White Blood Count 15.2 H 4.3-11.0 10^3/uL Red Blood Count 4.20 3.80-5.11 10^6/uL Hemoglobin 13.0 11.5-16.0 g/dL Hematocrit 38 35-52 % Mean Corpuscular Volume 90 80-99 fL Mean Corpuscular Hemoglobin 31 25-34 pg Mean Corpuscular Hemoglobin Concent 35 32-36 g/dL Red Cell Distribution Width 12.9 10.0-14.5 % Platelet Count 410 H 130-400 10^3/uL Mean Platelet Volume 9.6 9.0-12.2 fL Immature Granulocyte % (Auto) 0 % Neutrophils (%) (Auto) 76 H 42-75 % Lymphocytes (%) (Auto) 15 12-44 % Monocytes (%) (Auto) 8 0-12 % Eosinophils (%) (Auto) 0 0-10 % Basophils (%) (Auto) 0 0-10 % Neutrophils # (Auto) 11.6 H 1.8-7.8 10^3/uL Lymphocytes # (Auto) 2.2 1.0-4.0 10^3/uL Monocytes # (Auto) 1.2 H 0.0-1.0 10^3/uL Eosinophils # (Auto) 0.1 0.0-0.3 10^3/uL Basophils # (Auto) 0.0 0.0-0.1 10^3/uL Immature Granulocyte # (Auto) 0.1 0.0-0.1 10^3/uL Neutrophils % (Manual) 77 % Lymphocytes % (Manual) 16 % Monocytes % (Manual) 7 % Blood Morphology Comment NORMAL Sodium Level 137 135-145 MMOL/L Potassium Level 4.9 3.6-5.0 MMOL/L Chloride Level 99 98-107 MMOL/L Carbon Dioxide Level 21 21-32 MMOL/L Anion Gap 17 H 5-14 MMOL/L Blood Urea Nitrogen 42 H 7-18 MG/DL Creatinine 1.99 H 0.60-1.30 MG/DL Estimat Glomerular Filtration Rate 27 BUN/Creatinine Ratio 21 Glucose Level 263 H 70-105 MG/DL Calcium Level 12.1 H 8.5-10.1 MG/DL Corrected Calcium 8.5-10.1 MG/DL Total Bilirubin 0.5 0.1-1.0 MG/DL Aspartate Amino Transf (AST/SGOT) 16 5-34 U/L Alanine Aminotransferase (ALT/SGPT) 31 0-55 U/L Alkaline Phosphatase 66 40-136 U/L Ammonia 23 11-32 UMOL/L Total Creatine Kinase 84 29-168 U/L Total Protein 8.0 6.4-8.2 GM/DL Albumin 4.7 H 3.2-4.5 GM/DL My Orders Orders - DAYRON AVITIA MD Ed Iv/Invasive Line Start (03/20/21 17:01) Cbc With Automated Diff (03/20/21 17:01) Comprehensive Metabolic Panel (03/20/21 17:01) Creatine Kinase (03/20/21 17:01) Ua Culture If Indicated (03/20/21 17:01) Drug Screen Stat (Urine) (03/20/21 17:01) Alcohol (03/20/21 17:01) Salicylate (03/20/21 17:01) Acetaminophen (03/20/21 17:01) Ammonia (03/20/21 17:01) Ekg Tracing (03/20/21 17:01) Manual Differential (03/20/21 17:03) Ns Iv 1000 Ml (Sodium Chloride 0.9%) (03/20/21 17:45) Creatine Kinase (03/20/21 17:35) Vital Signs/I&O 03/20/21 16:48 Temp 37.1 Pulse 120 Resp 17 B/P (MAP) 170/96 (120) O2 Delivery Room Air Capillary Refill : Progress Note : Time: 17:51 Progress Note Case discussed with Dr. Mejía on for [facility]. Will admit the patient observation with altered mental status and acute kidney injury. Dr. Mejía requests 1 g of Rocephin with the setting of acute kidney injury, creatinine 1.9. 1 L of fluids has been given in the emergency department will run normal saline at 125 cc an hour. She states that we will hold off on the CT brain for now. ECG Initial ECG Impression Date: Mar 20, 2021 Initial ECG Impression Time: 17:25 Initial ECG Rate: 110 Initial ECG Rhythm: S.Tach Initial ECG Intervals: Normal Initial ECG Intervals FL 153 QRS 89 QTc 452 Comment Low voltage, left axis deviation Departure Communication (Admissions) Time/Spoke to Admitting Phy: 17:[address] Mejía who accepts the patient for observation admission Impression Primary Impression: AMS (altered mental status) Qualified Codes: R41.0 - Disorientation, unspecified Additional Impression: Acute kidney injury Disposition: ADMITTED INPATIENT Condition: Stable Admissions Decision to Admit Reason: Admit from ER (General) Decision to Admit/Date: Mar 20, 2021 Time/Decision to Admit Time: 17:52 Departure-Patient Inst. Referrals: [facility] [place] (PCP/Family) Primary Care Physician DAYRON AVITIA MD Mar 20, 2021 17:11
[2021-03-20 17:22] LABS: CHLORIDE 99 MMOL/L (98-107); POTASSIUM 4.9 MMOL/L (3.6-5.0); SODIUM 137 MMOL/L (135-145)
[2021-03-20 17:23] LABS: ALBUMIN 4.7 GM/DL (3.2-4.5)
[2021-03-20 17:24] LABS: AMMONIA 23 UMOL/L (11-32); CALCIUM 12.1 MG/DL (8.5-10.1)
[2021-03-20 17:25] LABS: GLUCOSE 263 MG/DL (70-105)
[2021-03-20 17:26] LABS: CARBON DIOXIDE 21 MMOL/L (21-32)
[2021-03-20 17:27] LABS: BILIRUBIN,TOTAL 0.5 MG/DL (0.1-1.0)
[2021-03-20 17:29] LABS: ALKALINE PHOSPHATASE 66 U/L (40-136); CREATININE SERUM 1.99 MG/DL (0.60-1.30); GFR ESTIMATED 27
[2021-03-20 17:30] LABS: BUN/CREATININE RATIO 21
[2021-03-20 17:32] LABS: ALANINE AMINOTRANSFERASE 31 U/L (0-55); CREATINE KINASE 84 U/L (29-168); SALICYLATE < 5.0 MG/DL (5.0-20.0)
[2021-03-20] MEDS ORDERED: NS IV 1000 ML 1,000 ML IV SCH (17:45)
[2021-03-20 17:50] LABS: LYMPHOCYTES % (MANUAL) 16 %; MONOCYTES % (MANUAL) 7 %; NEUTROPHILS % (MANUAL) 77 %; RBC MORPH NORMAL
[2021-03-20 17:50] LABS: CLARITY,URINE CLEAR; COLOR,URINE YELLOW; GLUCOSE, URINE (UA) NEGATIVE (NEGATIVE); KETONES,URINE TRACE (NEGATIVE); LEUKOCYTE ESTERASE ,URINE NEGATIVE (NEGATIVE); NITRITE,URINE NEGATIVE (NEGATIVE); PH,URINE 5.5 (5-9); PROTEIN,URINE 3+ (NEGATIVE)
[2021-03-20] MEDS ORDERED: cefTRIAXone 1,000 MG in WATER (STERILE) FOR INJECTION 10 ML IV ONE (18:00)
[2021-03-20 18:03] LABS: AMPHETAMINE SCREEN, URINE NEGATIVE (NEGATIVE); BACTERIA,URINE TRACE /HPF; BARBITURATE SCREEN URINE NEGATIVE (NEGATIVE); BENZODIAZEPINES SCREEN URINE NEGATIVE (NEGATIVE); BILIRUBIN,URINE 1+ (NEGATIVE); CANNABINOID SCREEN, URINE NEGATIVE (NEGATIVE); COCAINE SCREEN URINE NEGATIVE (NEGATIVE); GRANULAR CASTS,URINE 0-2 /LPF; METHADONE STAT NEGATIVE (NEGATIVE); METHAMPHETAMINE SCREEN URINE S NEGATIVE (NEGATIVE); OPIATE SCREEN URINE NEGATIVE (NEGATIVE); OXYCODONE STAT NEGATIVE (NEGATIVE); PROPOXYPHENE STAT NEGATIVE (NEGATIVE); SQUAMOUS EPITHELIAL CELL,UR 0-2 /HPF; TRICYCLIC ANTIDEPRESSANTS SCRE NEGATIVE (NEGATIVE)
[2021-03-20 18:12] LABS: ACETAMINOPHEN < 10 UG/ML (10-30)
[2021-03-20 19:10] VITALS: BP 187/84
[2021-03-20] MEDS ORDERED: HALOPERIDOL 5 MG/ML (HALDOL) VIAL IM NR (19:15)
--- NOTE | 2021-03-20 19:16 | History & Physical ---
HPI History of Present Illness: 51 yo F that was found on the ground by her and at that time she was confused and no acting like herself. Patient is unable to answer questions at she is only echoing was is said to her. States that she is seeing aliens. states that she had her pills on the table but he is not sure if she took any other them. Source: RN/MD Exam Limitations: clinical condition Date seen by provider: Mar 20, 2021 Time Seen by Provider: 19:30 Attending Physician Jalyn Mejía MD [place] [place] Consult Date of Admission Mar 20, 2021 at 17:50 Home Medications Home Medications Reviewed patient Home Medication Reconciliation performed by pharmacy medication reconciliations photonic laboratory technician and/or nursing. Patients Allergies have been reviewed. Allergies Coded Allergies: No Known Drug Allergies (Unverified , 06/29/11) DGJ-Pzerim-Fjicrv Hx Patient Social History Smoking Status: Never a Smoker 2nd Hand Smoke Exposure: No Recent Hopitalizations: No Immunizations Up To Date Tetanus Booster (TDap): Unknown Past Medical History PMHx: DMII HTN Obesity Review of Systems ([facility]) Constitutional: other (Unable to get ROS due to delirium, patient denies pain) Reviewed Test Results Reviewed Test Results Lab Laboratory Tests Test 03/20/21 17:03 03/20/21 17:14 03/20/21 17:45 03/20/21 20:26 Range/Units White Blood Count 15.2 H 4.3-11.0 10^3/uL Red Blood Count 4.20 3.80-5.11 10^6/uL Hemoglobin 13.0 11.5-16.0 g/dL Hematocrit 38 35-52 % Mean Corpuscular Volume 90 80-99 fL Mean Corpuscular Hemoglobin 31 25-34 pg Mean Corpuscular Hemoglobin Concent 35 32-36 g/dL Red Cell Distribution Width 12.9 10.0-14.5 % Platelet Count 410 H 130-400 10^3/uL Mean Platelet Volume 9.6 9.0-12.2 fL Immature Granulocyte % (Auto) 0 % Neutrophils (%) (Auto) 76 H 42-75 % Lymphocytes (%) (Auto) 15 12-44 % Monocytes (%) (Auto) 8 0-12 % Eosinophils (%) (Auto) 0 0-10 % Basophils (%) (Auto) 0 0-10 % Neutrophils # (Auto) 11.6 H 1.8-7.8 10^3/uL Lymphocytes # (Auto) 2.2 1.0-4.0 10^3/uL Monocytes # (Auto) 1.2 H 0.0-1.0 10^3/uL Eosinophils # (Auto) 0.1 0.0-0.3 10^3/uL Basophils # (Auto) 0.0 0.0-0.1 10^3/uL Immature Granulocyte # (Auto) 0.1 0.0-0.1 10^3/uL Neutrophils % (Manual) 77 % Lymphocytes % (Manual) 16 % Monocytes % (Manual) 7 % Blood Morphology Comment NORMAL Sodium Level 137 135-145 MMOL/L Potassium Level 4.9 3.6-5.0 MMOL/L Chloride Level 99 98-107 MMOL/L Carbon Dioxide Level 21 21-32 MMOL/L Anion Gap 17 H 5-14 MMOL/L Blood Urea Nitrogen 42 H 7-18 MG/DL Creatinine 1.99 H 0.60-1.30 MG/DL Estimat Glomerular Filtration Rate 27 BUN/Creatinine Ratio 21 Glucose Level 263 H 70-105 MG/DL Calcium Level 12.1 H 8.5-10.1 MG/DL Corrected Calcium 8.5-10.1 MG/DL Total Bilirubin 0.5 0.1-1.0 MG/DL Aspartate Amino Transf (AST/SGOT) 16 5-34 U/L Alanine Aminotransferase (ALT/SGPT) 31 0-55 U/L Alkaline Phosphatase 66 40-136 U/L Ammonia 23 11-32 UMOL/L Total Creatine Kinase 84 82 29-168 U/L Total Protein 8.0 6.4-8.2 GM/DL Albumin 4.7 H 3.2-4.5 GM/DL Salicylates Level < 5.0 L 5.0-20.0 MG/DL Acetaminophen Level < 10 L 10-30 UG/ML Serum Alcohol < 10 <10 MG/DL Urine Color YELLOW Urine Clarity CLEAR Urine pH 5.5 5-9 Urine Specific [place] >=1.030 1.016-1.022 Urine Protein 3+ H NEGATIVE Urine Glucose (UA) NEGATIVE NEGATIVE Urine Ketones TRACE H NEGATIVE Urine Nitrite NEGATIVE NEGATIVE Urine Bilirubin 1+ H NEGATIVE Urine Urobilinogen 0.2 < = 1.0 MG/DL Urine Leukocyte Esterase NEGATIVE NEGATIVE Urine RBC (Auto) NEGATIVE NEGATIVE Urine RBC NONE /HPF Urine WBC NONE /HPF Urine Squamous Epithelial Cells 0-2 /HPF Urine Crystals NONE /LPF Urine Bacteria TRACE /HPF Urine Casts PRESENT /LPF Urine Hyaline Casts 10-25 H /LPF Urine Granular Casts 0-2 H /LPF Urine Mucus NEGATIVE /LPF Urine Culture Indicated NO Urine Opiates Screen NEGATIVE NEGATIVE Urine Oxycodone Screen NEGATIVE NEGATIVE Urine Methadone Screen NEGATIVE NEGATIVE Urine Propoxyphene Screen NEGATIVE NEGATIVE Urine Barbiturates Screen NEGATIVE NEGATIVE Ur Tricyclic Antidepressants Screen NEGATIVE NEGATIVE Urine Phencyclidine Screen NEGATIVE NEGATIVE Urine Amphetamines Screen NEGATIVE NEGATIVE Urine Methamphetamines Screen NEGATIVE NEGATIVE Urine Benzodiazepines Screen NEGATIVE NEGATIVE Urine Cocaine Screen NEGATIVE NEGATIVE Urine Cannabinoids Screen NEGATIVE NEGATIVE Glucometer 165 H 70-110 MG/DL Physical Exam-([facility]) Physical Exam Vital Signs VS - Last 72 Hours, by Label 03/20/21 03/20/21 03/20/21 03/20/21 16:48 19:10 19:11 20:32 Temp 37.1 36.4 Pulse 120 112 66 107 Resp 17 18 16 18 B/P (MAP) 170/96 (120) 187/84 (118) 131/65 127/85 (99) Pulse Ox 98 97 99 O2 Delivery Room Air Room Air Room Air Room Air 03/20/21 20:39 Temp 36.4 Pulse 107 Pulse Ox 99 FiO2 21 Capillary Refill : Less Than 3 Seconds General Appearance: mild distress (hallucinations) HEENT: PERRL/EOMI Neck: non-tender, full range of motion, supple Respiratory: chest non-tender, lungs clear, normal breath sounds, no respiratory distress, no accessory muscle use Cardiovascular: normal peripheral pulses, regular rate, rhythm, no edema, no murmur Gastrointestinal: normal bowel sounds, non tender, soft, no organomegaly Back: no CVA tenderness, no vertebral tenderness Extremities: normal range of motion, non-tender, normal inspection, no pedal edema, no calf tenderness, normal capillary refill 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, alert, disoriented x 3 Skin: normal color, warm/dry Lymphatic: no adenopathy Assessment/Plan Assessment/Plan Admission Status: Observation (1) AMS (altered mental status) Status: Acute Assessment & Plan: - UDS neg, unclear if etiology is medical or psych related, will have patient screen in AM for possible psych admission Qualifiers: Qualified Codes: R41.0 - Disorientation, unspecified (2) HTN (hypertension) Status: Chronic Assessment & Plan: - blood pressure improved with IVFs, will continue to monitor, med rec pending Qualifiers: Qualified Codes: I10 - Essential (primary) hypertension (3) Acute kidney injury Status: Acute Assessment & Plan: - IVFs, continue to monitor Cr (4) Insulin dependent diabetes mellitus Status: Chronic Assessment & Plan: - A1c pending, Accuchecks AC/HS, SSI A (5) DVT prophylaxis Status: Acute Assessment & Plan: - JALYN Walden MD Mar 20, 2021 19:16
[2021-03-20] MEDS ORDERED: CATHETER FLUSH 10 ML SYR IV PRN (20:15)
[2021-03-20] MEDS ORDERED: METF-399 PO (20:22)
[2021-03-20 20:32] VITALS: BP 127/85
[2021-03-20 20:39] VITALS: BP 127/85
[2021-03-20] MEDS: inSUlin ASPART (NovoLOG) 1 UNIT/0.01 ML (CHARGE PER UNIT) SC SCH ×2 (20:42→20:46)
[2021-03-20] MEDS ORDERED: RT-ALBUTEROL/IPRATROPIUM 3 ML (DUONEB) VIAL INH PRN (20:45)
[2021-03-20] MEDS: NS IV 1000 ML 1,000 ML IV SCH (20:46)
[2021-03-20] MEDS ORDERED: LORazepam INJ 2 MG/ML (ATIVAN) VIAL IVP PRN (23:00)
[2021-03-20] MEDS ORDERED: ACETAMINOPHEN 500 MG TAB (TYLENOL) PO PRN (23:00)
[2021-03-20] MEDS ORDERED: ONDANSETRON 4 MG (ZOFRAN) ORAL DISSOLVE TAB PO PRN (23:00)
[2021-03-21 00:10] VITALS: BP 103/55
[2021-03-21 04:54] VITALS: BP 123/74
[2021-03-21] MEDS: NS IV 1000 ML 1,000 ML IV SCH (05:20)
[2021-03-21 05:37] LABS: BASOPHILS # (AUTO) 0.1 10^3/uL (0.0-0.1); BASOPHILS % (AUTO) 1 % (0-10); EOSINOPHILS # (AUTO) 0.2 10^3/uL (0.0-0.3); EOSINOPHILS % (AUTO) 1 % (0-10); HEMATOCRIT 32 % (35-52); HEMOGLOBIN 10.7 g/dL (11.5-16.0); LYMPHOCYTES # (AUTO) 2.8 10^3/uL (1.0-4.0); LYMPHOCYTES % (AUTO) 25 % (12-44); MEAN CORPUSCULAR HEMOGLOBIN 31 pg (25-34); MEAN CORPUSCULAR HGB CONC 33 g/dL (32-36); MEAN CORPUSCULAR VOLUME 91 fL (80-99); MEAN PLATELET VOLUME 9.9 fL (9.0-12.2); MONOCYTES # (AUTO) 0.9 10^3/uL (0.0-1.0); MONOCYTES % (AUTO) 8 % (0-12); NEUTROPHILS # (AUTO) 7.6 10^3/uL (1.8-7.8); NEUTROPHILS % (AUTO) 66 % (42-75); PLATELET COUNT 328 10^3/uL (130-400); WHITE BLOOD COUNT 11.6 10^3/uL (4.3-11.0)
[2021-03-21 05:43] LABS: POTASSIUM 4.2 MMOL/L (3.6-5.0)
[2021-03-21 05:44] LABS: CALCIUM 9.6 MG/DL (8.5-10.1)
[2021-03-21] MEDS: inSUlin ASPART (NovoLOG) 1 UNIT/0.01 ML (CHARGE PER UNIT) SC SCH ×2 (05:45→13:38)
[2021-03-21 05:49] LABS: CREATININE SERUM 1.54 MG/DL (0.60-1.30)
[2021-03-21 07:18] VITALS: BP 130/84
--- NOTE | 2021-03-21 08:36 | ST Dysphagia Evaluation ---
Speech Evaluation-General Medical Diagnosis AMS, Disoriented, unspecified Onset Date: Mar 20, 2021 Therapy Diagnosis Therapy Diagnosis: Oropharyngeal Dysphagia Precautions Precautions: Aspiration Precautions/Isolations: Aspiration Referral Referring Physician: Dr. Mejía Medical History Pertinent Medical History: DM Reviewed History: Yes Social History Current Living Status: Spouse Speech PLF/Current-Dysphagia Prior Level of Function Patient lives with her where she was independent for her daily needs. Subjective Patient was oriented and able to participate fully with the Bedside Dysphagia Evaluation. She states she did not know why she was in the hospital. Cognitive Status Patient Orientation: Person, Confused, Place Oral Motor Skills Dentition: Natural Ability to Follow Directions: Good Patient was NPO pending BDE Oral Expression Ability: No Impairment Voice Voice Phonatory-Based Quality: Normal Voice Pitch: Normal Voice Loudness: Normal Face Facial Symmetry: Symmetrical Oral-Facial Assessment Oral-Facial Dentition: Normal Labial Seal Description: Normal Smile: Normal Puff Cheeks: Normal Lingual Protrusion: Normal Lingual ROM: Normal Lingual Strength: Normal Pharynx Velopharyngeal Move.: Normal Volitional Dry Swallow: Yes Voluntary Cough: Yes Can Clear Throat Volitionally: Yes Productive Cough: No Productive Throat Clear: No Dysphagia Evaluation Consistencies Presented: Regular, Thin Liquid, Mechanical Soft, Pureed Oral phase is within normal function for all consistencies presented. Pharyngeal phase is within normal function for all consistencies presented. Dietary Recommendations: Regular Liquid Recommendations: Thin Swallowing Precautions: Alternate Liquids/Solids, Decreased Bolus 1/2 Tsp, Liquids from Straw, Small Bites and Sips, Sitting Upright 90 Degrees, Sitting 90 Degrees 30 Post Intake Dysphagia Evaluation Summary Patient completed the Bedside Dysphagia Evaluation per physician order. Patient was presented thin liquids at 1/2 tsp x2 and via straw x2 without s/s of aspiration. Patient also presented 1/2 tsp of puree, mechanical soft and regular with normal function without s/s of aspiration. Patient is recommended for regular diet texture with thin liquids. This information was written on the white board in her room as well as provided to nursing. Barriers to Learning recent AMS upon admission Speech-Plan Patient/Family Goals Patient/Family Goals: Patient plans on returning to her home where she lives with her . Treatment Plan Speech Therapy Treatment Plan: Discontinue ST Treatment Duration: Mar 21, 2021 Frequency: 1 time per week Estimated Hrs Per Day: .25 hour per day Rehab Potential: Good Barriers to Learning: recent AMS upon admission Pt/Family Agrees to Plan: Yes Safety Risks/Education Teaching Recipient: Patient Teaching Methods: Discussion Response to Teaching: Verbalize Understanding Education Topics Provided: Safety of oral intake, diet level Time Speech Therapy Time In: 08:10 Speech Therapy Time Out: 08:30 Total Billed Time: 20 Billed Treatment Time 1, LEXIE COATS [address] Mar 21, 2021 08:36
[2021-03-21] MEDS ORDERED: ENOXAPARIN 40 MG/0.4 ML (LOVENOX) SYR SQ SCH (09:00)
[2021-03-21] MEDS ORDERED: MV-M1CAP17 PO (09:54)
[2021-03-21] MEDS ORDERED: FISH1CAP15 PO (09:54)
[2021-03-21] MEDS ORDERED: METF-478 PO (09:54)
[2021-03-21] MEDS ORDERED: CHOL-34 PO (09:54)
[2021-03-21] MEDS ORDERED: CALC-64 PO (09:54)
[2021-03-21] MEDS ORDERED: ACET-93 PO (09:54)
[2021-03-21 11:20] VITALS: BP 119/76
--- NOTE | 2021-03-21 12:25 | Discharge Summary ---
Diagnosis/Chief Complaint Date of Admission Mar 20, 2021 at 17:50 Date of Discharge Discharge Diagnosis Problems/Diagnosis: (1) AMS (altered mental status) Assessment & Plan: - UDS neg, unclear if etiology is medical or psych related, will have patient screen in AM for possible psych admission Qualifiers: Qualified Codes: R41.0 - Disorientation, unspecified Status: Acute (2) HTN (hypertension) Assessment & Plan: - blood pressure improved with IVFs, will continue to monitor, med rec pending Qualifiers: Qualified Codes: I10 - Essential (primary) hypertension Status: Chronic (3) Acute kidney injury Assessment & Plan: - IVFs, continue to monitor Cr Status: Acute (4) Insulin dependent diabetes mellitus Assessment & Plan: - A1c pending, Accuchecks AC/HS, SSI A Status: Chronic (5) DVT prophylaxis Assessment & Plan: - Lovenox Status: Acute Chief Complaint/HPI Chief Complaint/HPI 51 yo F that was found on the ground by her and at that time she was confused and no acting like herself. Patient is unable to answer questions at she is only echoing was is said to her. States that she is seeing aliens. states that she had her pills on the table but he is not sure if she took any other them. Discharge Summary-Simple/Stand Consultations Discharge Physical Examination Allergies: Coded Allergies: No Known Drug Allergies (Unverified , 06/29/11) Vitals & I&Os Vital Sign - Last 12Hours Date Time Temp Pulse Resp B/P (MAP) Pulse Ox O2 Delivery O2 Flow Rate FiO2 03/21/21 11:20 97 18 119/76 (90) 96 Room Air 03/21/21 07:18 36.4 03/20/21 20:39 21 Intake and Output 03/21/21 00:00 Intake Total 1010 ml Output Total 600 ml Balance 410 ml Hospital Course See final discharge diagnosis. Discharge Instructions to patient/family Please see electronic discharge instructions given to patient. Discharge Medications Reviewed and agree with Discharge Medication list on patient's Discharge Instruction sheet JALYN PALACIO MD Mar 21, 2021 12:24
--- NOTE | 2021-03-21 12:34 | Discharge Summary ---
Discharge [facility] Reconcile Patient Problems Problems Reviewed?: Yes Discharge Medications New, Converted or Re-Newed RX: Transmitted to Pharmacy Continued Medications: Acetaminophen (Acetaminophen) 500 Mg Tablet 1000 MG PO Q8H PRN for PAIN-MILD (1-4), TAB Calcium Carbonate (Tums Smoothies) 300 Mg Tab.chew 600 MG PO TID PRN for HEARTBURN, TAB Calcium/Magnesium/Zinc (Lzcotka-Izxertkfu-Qtpt Tablet) 1 Each Tablet 1 EACH PO DAILY, TAB Cholecalciferol (Vitamin D3) (Vitamin D3) 25 Mcg Tablet 25 MCG PO DAILY, TAB Dulaglutide (Trulicity) 0.75 Mg/0.5 Ml Pen.injctr 0.75 MG SQ WED, EACH LAST FILLED 09-05-2020 #4 BOXES/112 DAY SUPPLY Fish Oil/Dha/Epa (Fish Oil 1,200 mg Fish Oil) 1 Each Capsule 1 EACH PO TID, CAP Glipizide (Glipizide) 10 Mg Tablet 10 MG PO DAILY, TAB Insulin Aspart (Novolog) 100 Unit/1 Ml Susp 15 UNITS SQ AC, EACH Insulin Determir (Levemir) 1,000 Units/10 Ml Soln 15 UNITS SQ BID, EA Lisinopril (Lisinopril) 10 Mg Tablet 10 MG PO HS, TAB Metformin HCl (Metformin HCl ER) 500 Mg Tab.er.24 1000 MG PO BID, TAB TAKES 2 (500MG) TABS Mv-Mn/FA/A Lipoic Acid/Ubidec (Diabetic Vitamin Capsule) 1 Each Capsule 2 EACH PO DAILY, CAP Discontinued Medications: Multivitamin (Multi-Vitamin Daily) 1 Each Tablet 1 EACH PO DAILY, TAB Patient Instructions Goal/Follow Up Appt: 1-2 weeks with PCP at [facility] Activity & Diet Discharge Diet: ADA Diet Activity as Tolerated: Yes JALNY PALACIO MD Mar 21, 2021 12:34
== END 2021-03-21 13:45 | disposition home or self-care (01) ==
LOC: EDUNIT# 16:48 → ER 16:49 → 4TH 17:50
PROVIDERS: ADMIT Family Medicine; ATTEND Family Medicine
DX: R41.82 Altered mental status, unspecified (principal); I10 Essential (primary) hypertension; E11.9 Type 2 diabetes mellitus without complications; R13.12 Dysphagia, oropharyngeal phase; N17.9 Acute kidney failure, unspecified; F41.9 Anxiety disorder, unspecified; E66.9 Obesity, unspecified; E78.00 Pure hypercholesterolemia, unspecified; F32.9 Major depressive disorder, single episode, unspecified; Z79.4 Long term (current) use of insulin; Z79.899 Other long term (current) drug therapy; Z90.49 Acquired absence of other specified parts of digestive tract; Z68.38 Body mass index [BMI] 38.0-38.9, adult
CPT/HCPCS: 80048; 80053; 80306; 81000; 82140; 82550; 82947 ×2; 83036; 85007; 85025 ×2; 85027; 92526; 92610; 93005; 99284; G0480 ×3; 36415; 80320; 80329; G0378

== ENCOUNTER 2021-03-22 17:11 | Emergency (ER) | payer SELFPAY ==
[~2021-03-22] VITALS: Ht 175 cm; Wt 108.0 kg
[~2021-03-22 17:11] MED LIST changes: +ACET-93 PO; +CALC-64 PO; +CHOL-34 PO; +FISH1CAP15 PO; +METF-399 PO; +METF-478 PO; +MV-M1CAP17 PO
[2021-03-22] MEDS ORDERED: NS IV 1000 ML 1,000 ML IV SCH ×2 (17:45)
[2021-03-22] MEDS ORDERED: NS IV 500 ML 500 ML IV ONE (17:45)
[2021-03-22] MEDS ORDERED: cefTRIAXone 1,000 MG in WATER (STERILE) FOR INJECTION 10 ML IV ONE (17:45)
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
[2021-03-22 18:08] LABS: BASOPHILS # (AUTO) 0.1 10^3/uL (0.0-0.1); BASOPHILS % (AUTO) 1 % (0-10); EOSINOPHILS # (AUTO) 0.1 10^3/uL (0.0-0.3); EOSINOPHILS % (AUTO) 1 % (0-10); HEMATOCRIT 31 % (35-52); HEMOGLOBIN 10.6 g/dL (11.5-16.0); LYMPHOCYTES # (AUTO) 1.6 10^3/uL (1.0-4.0); LYMPHOCYTES % (AUTO) 19 % (12-44); MEAN CORPUSCULAR HEMOGLOBIN 31 pg (25-34); MEAN CORPUSCULAR HGB CONC 34 g/dL (32-36); MEAN CORPUSCULAR VOLUME 90 fL (80-99); MONOCYTES # (AUTO) 0.6 10^3/uL (0.0-1.0); MONOCYTES % (AUTO) 7 % (0-12); NEUTROPHILS # (AUTO) 6.1 10^3/uL (1.8-7.8); NEUTROPHILS % (AUTO) 72 % (42-75); PLATELET COUNT 354 10^3/uL (130-400); WHITE BLOOD COUNT 8.4 10^3/uL (4.3-11.0)
[2021-03-22 18:12] LABS: BILIRUBIN,URINE NEGATIVE (NEGATIVE); CLARITY,URINE CLEAR; COLOR,URINE YELLOW; GLUCOSE, URINE (UA) TRACE (NEGATIVE); KETONES,URINE NEGATIVE (NEGATIVE); LEUKOCYTE ESTERASE ,URINE NEGATIVE (NEGATIVE); NITRITE,URINE NEGATIVE (NEGATIVE); PROTEIN,URINE TRACE (NEGATIVE)
[2021-03-22 18:19] LABS: AMORPHOUS SEDIMENT,UR RARE AMOR URATES /LPF; BACTERIA,URINE NEGATIVE /HPF
[2021-03-22 18:20] LABS: ALBUMIN 4.3 GM/DL (3.2-4.5); POTASSIUM 3.9 MMOL/L (3.6-5.0)
[2021-03-22 18:21] LABS: CALCIUM 9.6 MG/DL (8.5-10.1)
[2021-03-22 18:22] LABS: TOTAL PROTEIN 7.2 GM/DL (6.4-8.2)
[2021-03-22 18:24] LABS: BILIRUBIN,TOTAL 0.3 MG/DL (0.1-1.0)
[2021-03-22 18:26] LABS: CREATININE SERUM 1.42 MG/DL (0.60-1.30)
[2021-03-22 18:28] LABS: INR 0.9 (0.8-1.4); PROTHROMBIN TIME PATIENT 12.9 SEC (12.2-14.7)
--- NOTE | 2021-03-22 19:16 | Diagnostic Imaging Report ---
EXAMINATION: CT head and CT cervical spine without contrast. TECHNIQUE: Multiple contiguous axial images were obtained through the brain and cervical spine without the use of intravenous contrast. Sagittal and coronal reformations through the cervical spine were then performed. All CT scans use one or more of the following dose optimizing techniques: automated exposure control, MA and/or KvP adjustment based on patient size and exam type or iterative reconstruction. HISTORY: Trauma COMPARISON: None available. FINDINGS: The burton-white matter differentiation is normal. No mass effect or midline shift. The ventricles are normal in size and configuration. Basilar cisterns are patent. There are no intra- or extra-axial fluid collections. There is no intracranial hemorrhage. The orbits are normal. Paranasal sinuses are normal. Mastoid air cells are clear. No soft tissue abnormality is seen. No osseus lesions or fractures are seen. The alignment of the cervical spine is normal. No fracture is seen. Vertebral body heights are normal. The craniocervical junction is normal. There is no degenerative disease in the cervical spine. There is no spinal canal stenosis. No soft tissue abnormality is seen in the neck. Limited views of the superior thorax are normal. IMPRESSION: 1. No acute intracranial abnormality. 2. No cervical spine fracture. Dictated by: Dictated on workstation # [id number]
--- NOTE | 2021-03-22 19:17 | Diagnostic Imaging Report ---
EXAMINATION: CT abdomen and pelvis without contrast. TECHNIQUE: Multiple contiguous axial images were obtained through the abdomen and pelvis without the use of intravenous contrast. All CT scans use one or more of the following dose optimizing techniques: automated exposure control, MA and/or KvP adjustment based on patient size and exam type or iterative reconstruction. HISTORY: Flank pain COMPARISON: None available. FINDINGS: Limited views of the lower thorax are unremarkable. The liver is normal without focal lesion. There is no biliary ductal dilation. Gallbladder is surgically absent. Pancreas is normal. Spleen is normal. There is a 2.7 x 2.5 cm left adrenal myelolipoma. The kidneys are normal. There is no hydronephrosis. Urinary bladder is normal. There are no renal or ureteral stones. Visualized bowel is normal in caliber without obstruction or inflammation. No free fluid or air. No abdominal or pelvic lymphadenopathy. Aorta is normal in caliber without aneurysm. There are no suspicious osseus lesions. IMPRESSION: 1. No renal or ureteral stones. Dictated by: Dictated on workstation # [id number]
--- NOTE | 2021-03-22 19:19 | Diagnostic Imaging Report ---
PA chest at 6:53. Indication: Confusion, sepsis The heart size is within normal limits and the heart does seem less prominent than noted on the prior exam of 03/05/2020. The lungs are clear. There is no sign of failure, pneumonia or pleural effusion. The mediastinum is not widened. The osseous structures are intact. Impression: There is no evidence for active disease. Dictated by: Dictated on workstation # [id number]
[2021-03-22] MEDS ORDERED: HYOSCYAMINE 0.125 MG (LEVSIN) TAB SL ONE (20:00)
[2021-03-23] MEDS ORDERED: ACETAMINOPHEN 500 MG TAB (TYLENOL) PO ONE (01:15)
[2021-03-23] MEDS ORDERED: KETOROLAC 30 MG/ML VIAL IVP ONE (03:15)
[2021-03-23] MEDS ORDERED: inSUlin ASPART (NovoLOG) 1 UNIT/0.01 ML (CHARGE PER UNIT) SC ONE (11:45)
[2021-03-23] MEDS ORDERED: lisINopril 20 MG (PRINIVIL) TABLET PO ONE (17:00)
[2021-03-23 18:00] VITALS: BP 135/72
== END 2021-03-23 18:00 | disposition home or self-care (01) ==
LOC: EDUNIT# 17:11 → ER 17:12
DX: F23 Brief psychotic disorder (principal); R19.7 Diarrhea, unspecified; K22.2 Esophageal obstruction; I10 Essential (primary) hypertension; E11.9 Type 2 diabetes mellitus without complications; Z20.822 Contact with and (suspected) exposure to COVID-19; Z79.4 Long term (current) use of insulin; Z79.899 Other long term (current) drug therapy
CPT/HCPCS: 36415; 70450; 71045; 72125; 74176; 80053; 81000; 82274; 82947; 83605; 85025; 85610; 85730; 86141; 87015; 87040; 87045; 87046; 87088; 87324; 87449; 87899; 89055

== ENCOUNTER → 2022-02-05 | Outpatient (CLI) | payer OTHER ==
[~2022-02-05] MED LIST changes: +PARO25TA PO; -PARO25TA2 PO
== END ==
LOC: CARD 13:00
PROVIDERS: ATTEND Pediatrics
DX: R00.0 Tachycardia, unspecified (principal)
CPT/HCPCS: 93225; 93226

== ENCOUNTER → 2022-04-19 | Outpatient (CLI) | payer OTHER | LOC: CARD 15:00 | PROVIDERS: ATTEND Internal Medicine Cardiovascular Disease | DX: I47.1 Supraventricular tachycardia (principal) | CPT/HCPCS: 93306 ==

== ENCOUNTER 2022-06-26 22:35 | Emergency (ER) | payer OTHER ==
[2022-06-26] MEDS ORDERED: NS IV 1000 ML 1,000 ML IV ONE (23:00)
--- NOTE | 2022-06-26 23:00 | ED General ---
General Chief Complaint: Altered Mental Status Stated Complaint: AMS Source of Information: Patient, EMS Exam Limitations: No Limitations (LEVAR FOUNTAIN DO) History of Present Illness Date Seen by Provider: Jun 26, 2022 Time Seen by Provider: 22:44 Initial Comments 52-year-old female brought in by EMS for altered mentation. Her is an overlearned lookback coordinator and states he got home and found her altered. She has been admitted for psychosis, UTI and delirium in the past. On arrival she has repetitive statements and just keeps and "I do not know." She is unable to pr ovide any history. EMS states her blood sugar was in the 300 range but her vital signs were stable during transport. They are unable to really provide any further history. (LEVAR FOUNTAIN DO) Allergies and Home Medications Allergies Coded Allergies: No Known Drug Allergies (Unverified , 06/29/11) Patient Home Medication List Home Medication List Reviewed: Yes (LEVAR FOUNTAIN DO) Acetaminophen (Acetaminophen) 500 Mg Tablet, 1,000 MG PO Q8H PRN for PAIN-MILD (1-4), (Reported) Entered as Reported by: COLE LOVE on 03/21/21 0954 Calcium Carbonate (Tums Smoothies) 300 Mg Tab.chew, 600 MG PO TID PRN for HEARTBURN, (Reported) Entered as Reported by: COLE LOVE on 07/26/19 0924 Calcium/Magnesium/Zinc (Ypjjlin-Wrhrqbruk-Uflj Tablet) 1 Each Tablet, 1 EACH PO DAILY, (Reported) Entered as Reported by: COLE LOVE on 03/21/21 0954 Cholecalciferol (Vitamin D3) (Vitamin D3) 25 Mcg Tablet, 25 MCG PO DAILY, (Reported) Entered as Reported by: COLE LOVE on 03/21/21 0954 Dulaglutide (Trulicity) 0.75 Mg/0.5 Ml Pen.injctr, 0.75 MG SQ WED, (Reported) Entered as Reported by: MEG HAAS on 07/24/19 0940 Fish Oil/Dha/Epa (Fish Oil 1,200 mg Fish Oil) 1 Each Capsule, 1 EACH PO TID, (Reported) Entered as Reported by: COLE LOVE on 03/21/21 0954 Glipizide (Glipizide) 10 Mg Tablet, 10 MG PO DAILY, (Reported) Entered as Reported by: MEG HAAS on 07/24/19939 Insulin Aspart (Novolog) 100 Unit/1 Ml Susp, 15 UNITS SQ AC, (Reported) Entered as Reported by: MEG HAAS on 07/24/19939 Insulin Determir (Levemir) 1,000 Units/10 Ml Soln, 15 UNITS SQ BID, (Reported) Entered as Reported by: MEG HAAS on 07/24/19939 Lisinopril (Lisinopril) 10 Mg Tablet, 10 MG PO HS, (Reported) Entered as Reported by: MEG HAAS on 07/24/19939 Metformin HCl (Metformin HCl ER) 500 Mg Tab.er.24, 1,000 MG PO BID, (Reported) Entered as Reported by: COLE LOVE on 03/21/21 09 Mv-Mn/FA/A Lipoic Acid/Ubidec (Diabetic Vitamin Capsule) 1 Each Capsule, 2 EACH PO DAILY, (Reported) Entered as Reported by: COLE LOVE on 03/21/21953 Trazodone HCl (Trazodone HCl) 50 Mg Tablet, 25 MG PO HS PRN for INSOMNIA Prescribed by: BARRON ORELLANA on 06/27/22 2123 Review of Systems Review of Systems : No Psychiatric/Neurological: See HPI Hematologic/Lymphatic: See HPI Unable to obtain review of systems due to patient mentation (LEVAR FOUNTAIN DO) Constitutional: no symptoms reported (BARRON WALKER MD) Past Yllhbvh-Skkffw-Baztnd Hx Immunizations Up To Date Tetanus Booster (TDap): Unknown PED Vaccines UTD: Yes (LEVAR FOUNTAIN DO) Seasonal Allergies Seasonal Allergies: No (LEVAR FOUNTAIN DO) Past Medical History Surgeries: Yes Gallbladder, Hysterectomy Respiratory: No Cardiac: Yes High Cholesterol, Hypertension Neurological: No [employer] History: Hysterectomy Genitourinary: No Gastrointestinal: Yes (CHOLECYSTECTOMY) Gall Bladder Disease Musculoskeletal: No Endocrine: Yes Diabetes, Insulin dep HEENT: Yes Macular Degeneration Cancer: No Psychosocial: Yes (EPISODES OF PSYCHOSIS) Anxiety, Depression Integumentary: No (LEVAR FOUNTAIN DO) Family Medical History Reviewed Nursing Family Hx (LEVAR FOUNTAIN DO) No Pertinent Family Hx Unable to obtain social history due to patient mentation (LEVAR FOUNTAIN DO) Physical Exam Vital Signs Vital Signs - First Documented 06/26/22 22:43 Temp 36.4 Pulse 116 Resp 20 B/P (MAP) 144/106 (119) Pulse Ox 98 O2 Delivery Room Air (MIL MULLINS MD) Vital Signs Capillary Refill : (LEVAR FOUNTAIN DO) Height, Weight, BMI Height: '" Weight: lbs. oz. kg; 35.00 BMI Method: General Appearance: No Apparent Distress, WD/WN Eyes: Bilateral Eye Normal Inspection, Bilateral Eye PERRL, Bilateral Eye EOMI HEENT: PERRL/EOMI, TMs Normal, Normal ENT Inspection, Pharynx Normal Neck: Full Range of Motion, Normal Inspection, Non Tender, Supple Respiratory: Chest Non Tender, Lungs Clear, Normal Breath Sounds, No Accessory Muscle Use, No Respiratory Distress Cardiovascular: Regular Rate, Rhythm, No Edema, No Gallop, No JVD, No Murmur, Normal Peripheral Pulses Gastrointestinal: Normal Bowel Sounds, No Organomegaly, No Pulsatile Mass, Non Tender, Soft Extremity: Normal Capillary Refill, Normal Inspection, Normal Range of Motion, Non Tender, No Calf Tenderness Neurologic/Psychiatric: Alert, No Motor/Sensory Deficits, Normal Mood/Affect, Other (Patient answers I do not know to her name, where she is, the year and time.) Skin: Normal Color, Warm/Dry Comments Patient has pressured, repetitive speech and appears acutely psychotic. (LEVAR FOUNTAIN DO) Progress/Results/Core Measures Suspected Sepsis SIRS Temperature: Pulse: Respiratory Rate: Laboratory Tests 06/26/22 23:23: White Blood Count 13.1H Blood Pressure / Mean: Laboratory Tests 06/26/22 23:23: Creatinine 1.90H, Platelet Count 466H, Total Bilirubin 0.5 06/27/22 02:00: Creatinine 1.62H (LEVAR FOUNTAIN DO) Results/Orders Lab Results Laboratory Tests Test 06/26/22 23:23 06/27/22 00:20 06/27/22 02:00 06/27/22 03:53 Range/Units White Blood Count 13.1 H 4.3-11.0 10^3/uL Red Blood Count 4.05 3.80-5.11 10^6/uL Hemoglobin 12.3 11.5-16.0 g/dL Hematocrit 35 35-52 % Mean Corpuscular Volume 87 80-99 fL Mean Corpuscular Hemoglobin 30 25-34 pg Mean Corpuscular Hemoglobin Concent 35 32-36 g/dL Red Cell Distribution Width 12.3 10.0-14.5 % Platelet Count 466 H 130-400 10^3/uL Mean Platelet Volume 9.3 9.0-12.2 fL Immature Granulocyte % (Auto) 1 % Neutrophils (%) (Auto) 86 H 42-75 % Lymphocytes (%) (Auto) 8 L 12-44 % Monocytes (%) (Auto) 5 0-12 % Eosinophils (%) (Auto) 0 0-10 % Basophils (%) (Auto) 0 0-10 % Neutrophils # (Auto) 11.2 H 1.8-7.8 10^3/uL Lymphocytes # (Auto) 1.1 1.0-4.0 10^3/uL Monocytes # (Auto) 0.7 0.0-1.0 10^3/uL Eosinophils # (Auto) 0.0 0.0-0.3 10^3/uL Basophils # (Auto) 0.0 0.0-0.1 10^3/uL Immature Granulocyte # (Auto) 0.1 0.0-0.1 10^3/uL Neutrophils % (Manual) 87 % Lymphocytes % (Manual) 10 % Monocytes % (Manual) 2 % Eosinophils % (Manual) 0 % Basophils % (Manual) 0 % Band Neutrophils 1 % Blood Morphology Comment NORMAL Sodium Level 124 *L 128 L 135-145 MMOL/L Potassium Level 6.3 H 5.0 3.6-5.0 MMOL/L Chloride Level 93 L 97 L 98-107 MMOL/L Carbon Dioxide Level 14 L 16 L 21-32 MMOL/L Anion Gap 17 H 15 H 5-14 MMOL/L Blood Urea Nitrogen 38 H 35 H 7-18 MG/DL Creatinine 1.90 H 1.62 H 0.60-1.30 MG/DL Estimat Glomerular Filtration Rate 32 38 BUN/Creatinine Ratio 20 22 Glucose Level 326 H 244 H 70-105 MG/DL Calcium Level 10.3 H 9.9 8.5-10.1 MG/DL Corrected Calcium 8.5-10.1 MG/DL Total Bilirubin 0.5 0.1-1.0 MG/DL Aspartate Amino Transf (AST/SGOT) 18 5-34 U/L Alanine Aminotransferase (ALT/SGPT) 26 0-55 U/L Alkaline Phosphatase 94 40-136 U/L Total Protein 8.1 6.4-8.2 GM/DL Albumin 4.8 H 3.2-4.5 GM/DL Beta-Hydroxybutyrate (Chem panel) 1.17 H 0.00-0.27 MMOL/L Salicylates Level < 5.0 L 5.0-20.0 MG/DL Acetaminophen Level < 10 L 10-30 UG/ML Serum Alcohol < 10 <10 MG/DL Urine Color YELLOW Urine Clarity CLEAR Urine pH 5.5 5-9 Urine Specific [place] 1.010 L 1.016-1.022 Urine Protein 1+ H NEGATIVE Urine Glucose (UA) 1+ H NEGATIVE Urine Ketones NEGATIVE NEGATIVE Urine Nitrite NEGATIVE NEGATIVE Urine Bilirubin NEGATIVE NEGATIVE Urine Urobilinogen 0.2 < = 1.0 MG/DL Urine Leukocyte Esterase NEGATIVE NEGATIVE Urine RBC (Auto) NEGATIVE NEGATIVE Urine RBC NONE /HPF Urine WBC NONE /HPF Urine Squamous Epithelial Cells 2-5 /HPF Urine Crystals NONE /LPF Urine Bacteria TRACE /HPF Urine Casts NONE /LPF Urine Mucus SMALL H /LPF Urine Culture Indicated NO Urine Opiates Screen NEGATIVE NEGATIVE Urine Oxycodone Screen NEGATIVE NEGATIVE Urine Methadone Screen NEGATIVE NEGATIVE Urine Propoxyphene Screen NEGATIVE NEGATIVE Urine Barbiturates Screen NEGATIVE NEGATIVE Ur Tricyclic Antidepressants Screen NEGATIVE NEGATIVE Urine Phencyclidine Screen NEGATIVE NEGATIVE Urine Amphetamines Screen NEGATIVE NEGATIVE Urine Methamphetamines Screen NEGATIVE NEGATIVE Urine Benzodiazepines Screen NEGATIVE NEGATIVE Urine Cocaine Screen NEGATIVE NEGATIVE Urine Cannabinoids Screen NEGATIVE NEGATIVE SARS-CoV-2 RNA (RT-PCR) Not Detected Not Detecte Test 06/27/22 04:15 06/27/22 10:38 Range/Units Glucometer 197 H 235 H 70-110 MG/DL (MIL MULLINS MD) My Orders Orders - MIL MULLINS MD General/Regular (06/27/22 Lunch) (MIL MULLINS MD) Medications Given in ED Current Medications Medications Dose Ordered Sig/Rina Route Start Time Stop Time Status Last Admin Dose Admin Lorazepam 2 mg STK-MED ONCE .ROUTE 06/27/22 11:19 06/27/22 11:24 DC 06/27/22 11:25 2 MG Sterile Water 10 ml @ ud STK-MED ONCE .ROUTE 06/27/22 11:07 06/27/22 11:09 DC 06/27/22 11:12 1.2 MLS/HR Ziprasidone 20 mg STK-MED ONCE IM 06/27/22 11:06 06/27/22 11:09 DC 06/27/22 11:13 10 MG (MIL MULLINS MD) Vital Signs/I&O 06/26/22 22:43 Temp 36.4 Pulse 116 Resp 20 B/P (MAP) 144/106 (119) Pulse Ox 98 O2 Delivery Room Air (MIL MULLINS MD) Vital Signs/I&O Capillary Refill : (LEVAR FOUNTAIN DO) Progress Note #1: Time: 02:39 Progress Note Patient continues to show signs of psychosis. She did have some elevated blood sugars initially with hyperkalemia, likely due to elevated sugars. This improved with IV fluids. She briefly responded to Valium however this was very short-lived. Also given Zyprexa with some improvement in her symptoms however she does remain acutely psychotic. Progress Note #2: Time: 03:18 Progress Note Psychiatric virtual customer assistant has spoken to the patient via teleconference. She agrees to the patient is acutely psychotic. They state they are going to speak with her and recommend inpatient treatment. (LEVAR FOUNTAIN DO) Progress Note : Progress Note Assumed care of the patient at 0 600 pending placement. Patient will be invol untary admission. mental health team is working on this now. Patient resting peacefully. 1120: Patient is now quite agitated. She is talking loudly and repeating herself but is not striking out at anybody. She is yelling quite a bit. Geodon 10 mg IM ordered which is not changing her status much. Ativan 2 mg IM ordered. Monitor patient pending involuntary psychiatric admission. 1424: Patient is resting peacefully. She did tolerate full lunch earlier. Monitor patient. (MIL MULLINS MD) Progress Note : Time: 21:31 Progress Note I assumed care of this patient from Dr. MULLINS at shift change. He reports she was quite agitated this morning and that she received Ativan and Geodon. Sh e slept soundly until around 3:00. arrived at 3:30 and had a good conversation with her. He reports that she has not exhibited any psychotic behavior while he has been in the room with her. She is alert, oriented, and in good spirits. reports she is now at baseline and has been at baseline since he arrived this afternoon. Nursing staff has had no difficulty with her since she fell asleep this morning. I conversed with the patient and found her to be alert, oriented, with good insight, and not in any way psychotic. 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 He will ensure that she gets appropriate follow-up and takes appropriate medications. She is established with [facility]. Patient and both feel comfortable with going home with a safety plan. Impression from prior physicians it was that insomnia was a major contributing factor to her problems. At this time we plan to treat that with trazodone and have her follow-up promptly with behavioral health to help manage the insomnia. Patient denies any homicidal or suicidal ideation. She denies feeling homicidal or suicidal yesterday either. (BARRON WALKER MD) Diagnostic Imaging Diagonstic Imaging: CT Plain Films/CT/US/NM/MRI: head Comments Negative for acute findings (LEVAR FOUNTAIN DO) Departure Impression Primary Impression: Acute psychosis Additional Impression: Insomnia Qualified Codes: G47.00 - Insomnia, unspecified Disposition: 01 HOME, SELF-CARE Condition: Improved Departure-Patient Inst. Decision time for Depature: 21:31 (BARRON WALKER MD) Referrals: [facility] (PCP/Family) Primary Care Physician Patient Instructions: Acute Psychosis (DC), Insomnia (DC) Add. Discharge Instructions: Start trazodone 30 minutes before bedtime each night to help you sleep. Discussed this with your primary care provider and your behavioral health provider to determine if it should be continued past your initial prescription from the ER. You should likely restart Abilify. However the dose of your supply at home is not known. You should clarify the starting dose with your behavioral health provider before taking it again. Please contact your behavioral health provider in the morning to clarify dosing before you restart this medication. Follow your safety plan as outlined by the behavioral health screener. Return to the ER or call 911 if you have worsening symptoms. If you need urgent mental health support, you may call the [facility] crisis line at [phone]. All discharge instructions reviewed with patient and/or family. Voiced understanding. Scripts Trazodone HCl (Trazodone HCl) 50 Mg Tablet 25 MG PO HS PRN for INSOMNIA, #10 TAB May increase to 50 mg nightly after 1 week if 25 mg not effective. Prov: BARRON WALKER MD 06/27/22 LEVAR FOUNTAIN DO Jun 26, 2022 23:00 MIL MULLINS MD Jun 27, 2022 11:21 BARRON WALKER MD Jun 27, 2022 21:34
[2022-06-26 23:32] LABS: BASOPHILS % (AUTO) 0 % (0-10); EOSINOPHILS % (AUTO) 0 % (0-10); HEMATOCRIT 35 % (35-52); HEMOGLOBIN 12.3 g/dL (11.5-16.0); LYMPHOCYTES # (AUTO) 1.1 10^3/uL (1.0-4.0); LYMPHOCYTES % (AUTO) 8 % (12-44); MEAN CORPUSCULAR HEMOGLOBIN 30 pg (25-34); MEAN CORPUSCULAR HGB CONC 35 g/dL (32-36); MEAN CORPUSCULAR VOLUME 87 fL (80-99); MEAN PLATELET VOLUME 9.3 fL (9.0-12.2); MONOCYTES # (AUTO) 0.7 10^3/uL (0.0-1.0); MONOCYTES % (AUTO) 5 % (0-12); NEUTROPHILS # (AUTO) 11.2 10^3/uL (1.8-7.8); NEUTROPHILS % (AUTO) 86 % (42-75); PLATELET COUNT 466 10^3/uL (130-400); WHITE BLOOD COUNT 13.1 10^3/uL (4.3-11.0)
[2022-06-26 23:42] LABS: ALBUMIN 4.8 GM/DL (3.2-4.5); CHLORIDE 93 MMOL/L (98-107); POTASSIUM 6.3 MMOL/L (3.6-5.0)
[2022-06-26 23:43] LABS: CALCIUM 10.3 MG/DL (8.5-10.1)
[2022-06-26 23:44] LABS: GLUCOSE 326 MG/DL (70-105)
[2022-06-26 23:45] LABS: CARBON DIOXIDE 14 MMOL/L (21-32); TOTAL PROTEIN 8.1 GM/DL (6.4-8.2)
[2022-06-26 23:46] LABS: BILIRUBIN,TOTAL 0.5 MG/DL (0.1-1.0)
[2022-06-26 23:48] LABS: ALKALINE PHOSPHATASE 94 U/L (40-136); GFR ESTIMATED 32
[2022-06-26 23:49] LABS: BUN/CREATININE RATIO 20
[2022-06-26 23:51] LABS: ALANINE AMINOTRANSFERASE 26 U/L (0-55); SALICYLATE < 5.0 MG/DL (5.0-20.0)
[2022-06-26 23:54] LABS: BAND NEUTROPHILS 1 %; BASOPHILS % (MANUAL) 0 %; EOSINOPHILS % (MANUAL) 0 %; LYMPHOCYTES % (MANUAL) 10 %; MONOCYTES % (MANUAL) 2 %; NEUTROPHILS % (MANUAL) 87 %; RBC MORPH NORMAL
[2022-06-26 23:55] LABS: ACETAMINOPHEN < 10 UG/ML (10-30)
[2022-06-26 23:56] LABS: SODIUM 124 MMOL/L (135-145)
[2022-06-27] MEDS ORDERED: OLANZapine 5 MG ODT (ZyPREXA ZYDIS) PO ONE
[2022-06-27] MEDS ORDERED: ONDANSETRON 4 MG/2 ML (SDV) Z0FRAN IVP ONE
[2022-06-27 00:30] LABS: BILIRUBIN,URINE NEGATIVE (NEGATIVE); CLARITY,URINE CLEAR; COLOR,URINE YELLOW; GLUCOSE, URINE (UA) 1+ (NEGATIVE); KETONES,URINE NEGATIVE (NEGATIVE); LEUKOCYTE ESTERASE ,URINE NEGATIVE (NEGATIVE); NITRITE,URINE NEGATIVE (NEGATIVE); PH,URINE 5.5 (5-9); PROTEIN,URINE 1+ (NEGATIVE)
[2022-06-27 00:40] LABS: BACTERIA,URINE TRACE /HPF
[2022-06-27 00:41] LABS: AMPHETAMINE SCREEN, URINE NEGATIVE (NEGATIVE); BARBITURATE SCREEN URINE NEGATIVE (NEGATIVE); BENZODIAZEPINES SCREEN URINE NEGATIVE (NEGATIVE); CANNABINOID SCREEN, URINE NEGATIVE (NEGATIVE); COCAINE SCREEN URINE NEGATIVE (NEGATIVE); METHADONE STAT NEGATIVE (NEGATIVE); OPIATE SCREEN URINE NEGATIVE (NEGATIVE); OXYCODONE STAT NEGATIVE (NEGATIVE); PROPOXYPHENE STAT NEGATIVE (NEGATIVE); TRICYCLIC ANTIDEPRESSANTS SCRE NEGATIVE (NEGATIVE)
[2022-06-27 02:15] LABS: CALCIUM 9.9 MG/DL (8.5-10.1)
[2022-06-27 02:19] LABS: CREATININE SERUM 1.62 MG/DL (0.60-1.30)
[2022-06-27] MEDS ORDERED: NS IV 1000 ML 1,000 ML IV SCH (03:45)
--- NOTE | 2022-06-27 05:24 | Diagnostic Imaging Report ---
PROCEDURE: CT head without contrast. TECHNIQUE: Multiple contiguous axial images were obtained through the brain without the use of intravenous contrast. Auto Exposure Controls were utilized during the CT exam to meet ALARA standards for radiation dose reduction. INDICATION: Altered mental status, hyperglycemia COMPARISON: 03/22/2021 FINDINGS: No intracranial hemorrhage. No intracranial mass, mass effect, midline shift, herniation, hydrocephalus, or extra-axial fluid collection. No CT evidence of an acute ischemic infarction. The orbits are unremarkable. The paranasal sinuses are clear. The calvarium and extracalvarial soft tissues are unremarkable. IMPRESSION: Stable examination without acute intracranial abnormality. Agree with preliminary interpretation. Dictated by: Dictated on workstation # [id number]
[2022-06-27] MEDS ORDERED: OLANZapine 5 MG ODT (ZyPREXA ZYDIS) ONE (11:04)
[2022-06-27] MEDS ORDERED: ZIPRASIDONE 20 MG INJ (GEODON) VIAL IM ONE (11:06)
[2022-06-27] MEDS ORDERED: WATER (STERILE) FOR INJECTION 10 ML ONE (11:07)
[2022-06-27] MEDS ORDERED: LORazepam INJ 2 MG/ML (ATIVAN) VIAL ONE (11:19)
[2022-06-27] MEDS ORDERED: TRZ50T PO (22:52)
[2022-06-27 22:56] VITALS: BP 143/89
[2022-06-27] MEDS ORDERED: traZODone 50 MG (DESYREL) TAB PO ONE (23:00)
== END 2022-06-27 22:58 | disposition home or self-care (01) ==
LOC: EDUNIT# 22:35 → ER 22:36
DX: F23 Brief psychotic disorder (principal); G47.00 Insomnia, unspecified; E87.5 Hyperkalemia; E11.9 Type 2 diabetes mellitus without complications; Z20.822 Contact with and (suspected) exposure to COVID-19; Z79.4 Long term (current) use of insulin
CPT/HCPCS: 70450; 80053; 85007; 93041; G0480 ×3; 36415; 51701; 80048; 80306; 80320; 80329; 81000; 82010; 82947; 85027; 87636; 93005

== ENCOUNTER 2023-02-04 03:19 | Emergency (ER) | payer SELFPAY ==
[~2023-02-04] VITALS: Ht 175.2 cm; Wt 120.0 kg
[~2023-02-04 03:19] MED LIST changes: +TRZ50T PO
[2023-02-04] MEDS ORDERED: NS IV 1000 ML 1,000 ML IV STA (03:32)
--- NOTE | 2023-02-04 03:44 | ED Cough/URI ---
General Chief Complaint: Cough/Cold/Flu Symptoms Stated Complaint: COUGH/SOA/VOMITING Nursing Triage Note: PT AMB TO [facility] 5 WITH CC OF COUGH X1WEEK, SOB, HEART BURN AND N/V. PT IS TAKING AMOXICILLIN FOR BRONCHITIS. Source: patient Exam Limitations: no limitations History of Present Illness Date Seen by Provider: Feb 04, 2023 Time Seen by Provider: 03:24 Initial Comments Here with report of persistent cough over the last week and states that she has bronchitis. Reports that she is currently on amoxicillin for bronchitis. She is reporting heartburn and vomiting and has reflux despite taking her omeprazole. Denies fever or chills. Denies difficulty with normal bathroom. Pain complaint is the persistent cough and vomiting. She is vaccinated for both COVID and influenza. Patient does report she takes metoprolol for chronic tachycardia and has hypertension. Timing/Duration: week, getting worse Severity/Quality: dry cough Associated Symptoms: cough, fever/chills, nasal congestion Allergies and Home Medications Allergies Coded Allergies: No Known Drug Allergies (Unverified , 06/29/11) Patient Home Medication List Home Medication List Reviewed: Yes Acetaminophen (Acetaminophen) 500 Mg Tablet, 1,000 MG PO Q8H PRN for PAIN-MILD (1-4), (Reported) Entered as Reported by: COLE LOVE on 03/21/21 0954 Calcium Carbonate (Tums Smoothies) 300 Mg Tab.chew, 600 MG PO TID PRN for HEARTBURN, (Reported) Entered as Reported by: COLE LOVE on 07/26/19 0924 Calcium/Magnesium/Zinc (Idpfbqq-Igmmhwpen-Rhjl Tablet) 1 Each Tablet, 1 EACH PO DAILY, (Reported) Entered as Reported by: COLE LOVE on 03/21/21 0954 Cholecalciferol (Vitamin D3) (Vitamin D3) 25 Mcg Tablet, 25 MCG PO DAILY, (Reported) Entered as Reported by: COLE LOVE on 03/21/21 0954 Dulaglutide (Trulicity) 0.75 Mg/0.5 Ml Pen.injctr, 0.75 MG SQ WED, (Reported) Entered as Reported by: MEG HAAS on 07/24/19 0940 Fish Oil/Dha/Epa (Fish Oil 1,200 mg Fish Oil) 1 Each Capsule, 1 EACH PO TID, (Reported) Entered as Reported by: COLE LOVE on 03/21/21 0954 Glipizide (Glipizide) 10 Mg Tablet, 10 MG PO DAILY, (Reported) Entered as Reported by: MEG HAAS on 07/24/19 09 Insulin Aspart (Novolog) 100 Unit/1 Ml Susp, 15 UNITS SQ AC, (Reported) Entered as Reported by: MEG HAAS on 07/24/19 09 Insulin Determir (Levemir) 1,000 Units/10 Ml Soln, 15 UNITS SQ BID, (Reported) Entered as Reported by: MEG HAAS on 07/24/19 09 Lisinopril (Lisinopril) 10 Mg Tablet, 10 MG PO HS, (Reported) Entered as Reported by: MEG HAAS on 07/24/19 09 Metformin HCl (Metformin HCl ER) 500 Mg Tab.er.24, 1,000 MG PO BID, (Reported) Entered as Reported by: COLE LOVE on 03/21/21 0954 Mv-Mn/FA/A Lipoic Acid/Ubidec (Diabetic Vitamin Capsule) 1 Each Capsule, 2 EACH PO DAILY, (Reported) Entered as Reported by: COLE LOVE on 03/21/21 0954 Trazodone HCl (Trazodone HCl) 50 Mg Tablet, 25 MG PO HS PRN for INSOMNIA Prescribed by: BARRON ORELLANA on 06/27/22 6758 Review of Systems Review of Systems Constitutional: see HPI; No fever, No weakness EENTM: nose congestion Respiratory: cough; No short of breath Gastrointestinal: No diarrhea; nausea, vomiting Genitourinary: no symptoms reported Musculoskeletal: No back pain, No muscle pain Skin: no symptoms reported Past Nvkiyfy-Bllnzo-Imhgfz Hx Patient Social History Tobacco Use?: No Substance use?: No Alcohol Use?: No Immunizations Up To Date Tetanus Booster (TDap): Unknown PED Vaccines UTD: Yes Seasonal Allergies Seasonal Allergies: No Past Medical History Surgeries: Yes Gallbladder, Hysterectomy Respiratory: No Cardiac: Yes High Cholesterol, Hypertension Neurological: No [employer] History: Hysterectomy Genitourinary: No Gastrointestinal: Yes (CHOLECYSTECTOMY) Gall Bladder Disease Musculoskeletal: No Endocrine: Yes Diabetes, Insulin dep HEENT: Yes Macular Degeneration Cancer: No Psychosocial: Yes (EPISODES OF PSYCHOSIS) Anxiety, Depression Integumentary: No Family Medical History Reviewed Nursing Family Hx No Pertinent Family Hx Unable to obtain social history due to patient mentation Physical Exam Vital Signs - First Documented 02/04/23 03:21 Temp 36.8 Pulse 119 B/P (MAP) 195/111 (139) Pulse Ox 95 O2 Delivery Room Air Capillary Refill : Height: '" Weight: lbs. oz. kg; 39.00 BMI Method: General Appearance: WD/WN, no apparent distress HEENT: PERRL/EOMI, pharynx normal Neck: full range of motion, supple Respiratory: lungs clear, normal breath sounds Cardiovascular: no murmur, tachycardia Gastrointestinal: non tender, soft Extremities: non-tender, normal inspection Neurologic/Psychiatric: alert, oriented x 3 Skin: normal color, warm/dry Progress/Results/Core Measures Suspected Sepsis SIRS Temperature: Pulse: 119 Respiratory Rate: Laboratory Tests 02/04/23 03:27: White Blood Count 10.7 Blood Pressure 195 /111 Mean: 139 Laboratory Tests 02/04/23 03:27: Creatinine 1.38H, Platelet Count 386, Total Bilirubin 0.2 Results/Orders Lab Results Laboratory Tests Test 02/04/23 03:27 Range/Units White Blood Count 10.7 4.3-11.0 10^3/uL Red Blood Count 3.68 L 3.80-5.11 10^6/uL Hemoglobin 11.5 11.5-16.0 g/dL Hematocrit 34 L 35-52 % Mean Corpuscular Volume 93 80-99 fL Mean Corpuscular Hemoglobin 31 25-34 pg Mean Corpuscular Hemoglobin Concent 34 32-36 g/dL Red Cell Distribution Width 12.8 10.0-14.5 % Platelet Count 386 130-400 10^3/uL Mean Platelet Volume 10.0 9.0-12.2 fL Immature Granulocyte % (Auto) 0 % Neutrophils (%) (Auto) 60 42-75 % Lymphocytes (%) (Auto) 24 12-44 % Monocytes (%) (Auto) 6 0-12 % Eosinophils (%) (Auto) 9 0-10 % Basophils (%) (Auto) 1 0-10 % Neutrophils # (Auto) 6.4 1.8-7.8 10^3/uL Lymphocytes # (Auto) 2.6 1.0-4.0 10^3/uL Monocytes # (Auto) 0.6 0.0-1.0 10^3/uL Eosinophils # (Auto) 0.9 H 0.0-0.3 10^3/uL Basophils # (Auto) 0.1 0.0-0.1 10^3/uL Immature Granulocyte # (Auto) 0.0 0.0-0.1 10^3/uL Sodium Level 137 135-145 MMOL/L Potassium Level 4.7 3.6-5.0 MMOL/L Chloride Level 107 98-107 MMOL/L Carbon Dioxide Level 17 L 21-32 MMOL/L Anion Gap 13 5-14 MMOL/L Blood Urea Nitrogen 22 H 7-18 MG/DL Creatinine 1.38 H 0.60-1.30 MG/DL Estimat Glomerular Filtration Rate 46 BUN/Creatinine Ratio 16 Glucose Level 228 H 70-105 MG/DL Calcium Level 9.1 8.5-10.1 MG/DL Corrected Calcium 9.0 8.5-10.1 MG/DL Total Bilirubin 0.2 0.1-1.0 MG/DL Aspartate Amino Transf (AST/SGOT) 26 5-34 U/L Alanine Aminotransferase (ALT/SGPT) 38 0-55 U/L Alkaline Phosphatase 87 40-136 U/L C-Reactive Protein High Sensitivity 0.98 H 0.00-0.50 MG/DL Total Protein 7.0 6.4-8.2 GM/DL Albumin 4.1 3.2-4.5 GM/DL My Orders Orders - MIL MULLINS MD Chest 1 View, Ap/Pa Only (02/04/23 03:32) Cbc With Automated Diff (02/04/23 03:32) Comprehensive Metabolic Panel (02/04/23 03:32) Hs C Reactive Protein (02/04/23 03:32) Ondansetron Injection (Zofran Injectio (02/04/23 03:45) Lidocaine 2% Viscous 15 Ml (Xylocaine Vi (02/04/23 03:45) Ns Iv 1000 Ml (Sodium Chloride 0.9%) (02/04/23 03:32) Antacid Suspension (Mylanta Suspension (02/04/23 03:45) Ed Iv/Invasive Line Start (02/04/23 03:32) Albuterol/Ipra Inhalation Soln (Duoneb I (02/04/23 03:45) Famotidine Tablet (Pepcid Tablet) (02/04/23 03:45) Svn Small Volume Nebulizer (02/04/23 03:32) Pantoprazole Injection (Protonix Injecti (02/04/23 03:45) Dexamethasone Injection (Decadron Inje (02/04/23 04:15) Promethazine/ Codeine Syrup (Phenergan W (02/04/23 04:30) Medications Given in ED Current Medications Medications Dose Ordered Sig/Rina Route Start Time Stop Time Status Last Admin Dose Admin Al Hydrox/Mg Hydrox/Simethicone 30 ml ONCE ONCE PO 02/04/23 03:45 02/04/23 03:46 DC 02/04/23 03:44 30 ML Albuterol/ Ipratropium 3 ml ONCE ONCE INH 02/04/23 03:45 02/04/23 03:46 DC 02/04/23 03:51 3 ML Dexamethasone Sodium Phosphate 10 mg ONCE ONCE IV 02/04/23 04:15 02/04/23 04:16 DC 02/04/23 04:14 10 MG Famotidine 20 mg ONCE ONCE PO 02/04/23 03:45 02/04/23 03:46 DC 02/04/23 03:44 20 MG Lidocaine HCl 15 ml ONCE ONCE PO 02/04/23 03:45 02/04/23 03:46 DC 02/04/23 03:43 15 ML Ondansetron HCl 4 mg ONCE ONCE IVP 02/04/23 03:45 02/04/23 03:46 DC 02/04/23 03:44 4 MG Pantoprazole 40 mg ONCE ONCE IV 02/04/23 03:45 02/04/23 03:46 DC 02/04/23 03:44 40 MG Vital Signs/I&O 02/04/23 02/04/23 03:21 04:03 Temp 36.8 Pulse 119 B/P (MAP) 195/111 (139) Pulse Ox 95 98 O2 Delivery Room Air Room Air Capillary Refill : Blood Pressure Mean: 139 Progress Note : Progress Note Seen and evaluated. IV, labs including CBC, CMP and CRP ordered. Chest x-ray ordered. We will give DuoNeb. Normal saline 1 L bolus, Protonix 40 mg IV, Pepcid 20 mg p.o. and GI cocktail ordered. Monitor patient. Differential diagnosis includes pneumonia, bronchitis, reflux disease, electrolyte abnormality, dehydration. 0414: Overall feeling a little better. Chest x-ray does not show any acute infiltrate on my interpretation. CBC is overall nonconcerning. Chemistry does show slightly elevated creatinine and elevated blood sugar with only slightly elevated CRP. No indication for significant bacterial infection or significant electrolyte abnormality. Fluids should help with the slight dehydration. We will give Decadron 10 mg IV for bronchitis. She will continue outpatient famotidine/Pepcid as well as her prescriptions. I did discuss with her concerns about elevated blood sugar related to steroid use as well as potential insomnia and she has suffered from this previously. She will follow-up with her doctor. Discharged home with return precautions. Patient verbalized understanding of instructions and agreement with plan. Diagnostic Imaging Diagonstic Imaging: Xray Plain Films/CT/US/NM/MRI: chest Comments No obvious infiltrate pending radiology review. Reviewed: Reviewed by Me Departure Impression Primary Impression: Bronchitis Additional Impression: Esophageal reflux Qualified Codes: K21.9 - Gastro-esophageal reflux disease without esophagitis Disposition: HOME, SELF-CARE Condition: Stable Departure-Patient Inst. Decision time for Depature: 04:18 Referrals: [facility] (PCP/Family) Primary Care Physician Patient Instructions: Acute Bronchitis, Adult (DC), Acid Reflux and GERD in Adults (DC) Add. Discharge Instructions: All discharge instructions reviewed with patient and/or family. Voiced understan rohan. Take medications as directed. You may take Pepcid or the generic famotidine, 20 mg once or twice daily as needed for acid reflux. Follow-up with your doctor for recheck and further evaluation. Return for worse pain, fever, vomiting, weakness, breathing problems or other concerns as needed. Scripts Benzonatate (TESSALON PERLES) 100 Mg Capsule 100 MG PO TID PRN for COUGH, #15 CAP 0 Refills Prov: MIL MULLINS MD 02/04/23 MIL MULLINS MD Feb 04, 2023 03:44
[2023-02-04] MEDS ORDERED: LIDOCAINE 2% VISCOUS 15 ML UDC PO ONE (03:45)
[2023-02-04] MEDS ORDERED: PANTOPRAZOLE 40 MG (PROTONIX) VIAL IV ONE (03:45)
[2023-02-04] MEDS ORDERED: ANTACID SUSP 30 ML UDC (MYLANTA) PO ONE (03:45)
[2023-02-04] MEDS ORDERED: ONDANSETRON 4 MG/2 ML (SDV) Z0FRAN IVP ONE (03:45)
[2023-02-04] MEDS ORDERED: RT-ALBUTEROL/IPRATROPIUM 3 ML (DUONEB) VIAL INH ONE (03:45)
[2023-02-04] MEDS ORDERED: FAMOTIDINE 20 MG (PEPCID) TABLET PO ONE (03:45)
[2023-02-04 03:47] LABS: BASOPHILS # (AUTO) 0.1 10^3/uL (0.0-0.1); BASOPHILS % (AUTO) 1 % (0-10); EOSINOPHILS # (AUTO) 0.9 10^3/uL (0.0-0.3); EOSINOPHILS % (AUTO) 9 % (0-10); HEMATOCRIT 34 % (35-52); HEMOGLOBIN 11.5 g/dL (11.5-16.0); LYMPHOCYTES # (AUTO) 2.6 10^3/uL (1.0-4.0); LYMPHOCYTES % (AUTO) 24 % (12-44); MEAN CORPUSCULAR HEMOGLOBIN 31 pg (25-34); MEAN CORPUSCULAR HGB CONC 34 g/dL (32-36); MEAN CORPUSCULAR VOLUME 93 fL (80-99); MONOCYTES # (AUTO) 0.6 10^3/uL (0.0-1.0); MONOCYTES % (AUTO) 6 % (0-12); NEUTROPHILS # (AUTO) 6.4 10^3/uL (1.8-7.8); NEUTROPHILS % (AUTO) 60 % (42-75); PLATELET COUNT 386 10^3/uL (130-400); WHITE BLOOD COUNT 10.7 10^3/uL (4.3-11.0)
[2023-02-04 03:48] LABS: ALBUMIN 4.1 GM/DL (3.2-4.5)
[2023-02-04 03:49] LABS: POTASSIUM 4.7 MMOL/L (3.6-5.0)
[2023-02-04 03:50] LABS: CALCIUM 9.1 MG/DL (8.5-10.1)
[2023-02-04 03:53] LABS: BILIRUBIN,TOTAL 0.2 MG/DL (0.1-1.0)
[2023-02-04 03:55] LABS: CREATININE SERUM 1.38 MG/DL (0.60-1.30)
[2023-02-04] MEDS ORDERED: BENZ100C18 PO (04:23)
[2023-02-04] MEDS ORDERED: PROMETHAZINE/ CODEINE SYRUP 5 ML UDC PO ONE (04:30)
[2023-02-04 04:53] VITALS: BP 168/102
--- NOTE | 2023-02-04 08:02 | Diagnostic Imaging Report ---
INDICATION: Cough x1 week. Frontal chest obtained at 4:11 a.m. and compared to 03/22/2021. Heart and mediastinal silhouette are normal in appearance. There is poor inspiration where the lungs appear grossly clear. There is no pneumothorax or pleural fluid. IMPRESSION: No acute process in the chest. Dictated by: Dictated on workstation # [id number]
== END 2023-02-04 04:54 | disposition home or self-care (01) ==
LOC: EDUNIT# 03:19 → ER 03:21
DX: J40 Bronchitis, not specified as acute or chronic (principal); K21.9 Gastro-esophageal reflux disease without esophagitis; I10 Essential (primary) hypertension; E11.9 Type 2 diabetes mellitus without complications; Z79.899 Other long term (current) drug therapy; Z79.4 Long term (current) use of insulin; Z90.49 Acquired absence of other specified parts of digestive tract
CPT/HCPCS: 36415; 71045; 80053; 85025; 86141; 94640